=== PATIENT | male | born 1945 | race Caucasian/White ===

== ENCOUNTER → 2023-06-01 14:22 | Outpatient (REF) | payer MEDICARE, SELFPAY | LOC: RCS 14:22 | PROVIDERS: ATTENDING PHYSICIAN Internal Medicine Cardiovascular Disease; FAMILY PHYSICIAN Nurse Practitioner Family | DX: I35.0 Nonrheumatic aortic (valve) stenosis (principal) | CPT/HCPCS: 93306 ==

== ENCOUNTER 2023-08-02 16:55 | Inpatient (IN) | payer MEDICARE, SELFPAY ==
[2023-08-02 10:24] VITALS: BP 162/82
--- NOTE | 2023-08-02 10:30 | ED.GENMED ---
History of Present Illness
<Nikki Kyle PA-C - Last Filed: 08/02/23 17:52>
General
Chief Complaint: Skin Problem
Source: patient
Exam Limitations: none
Time Seen by Provider: 08/02/23 10:27
Nursing documentation reviewed up to this point in time: agreed with
Travel History
Have you had any contact with someone who has COVID-19?: No
Do you have any symptoms of coronavirus? Fever > 100 degrees, chills, cough, shortness of breath, sore throat, loss of taste or smell, muscle aches, or headache?: No
History of Present Illness
History of Present Illness:
Patient is a 78-year old male with history atrial fibrillation on Xarelto, COPD on 5 L O2 nasal cannula presenting to the emergency department for evaluation of left lower leg wound. Patient states that he has had a chronic wound on his left lower
leg that initially began in early June. He has been on multiple rounds of outpatient antibiotics without any improvement. Patient was admitted at [facility] for the past 2 days receiving IV antibiotics. He left AMA yesterday evening due to
'not being happy with his care there'. Patient reports some pain in his left lower leg but has been able to ambulate without difficulty. He denies any fevers, chills, nausea, vomiting, weakness, or fatigue. Patient denies any chest pain or
worsening in his shortness of breath from his baseline. Patient denies any numbness or tingling to his left lower extremity.
Patient is unsure how initial wound appeared. He denies any known injury or bites.
Past History
<Nikki Kyle PA-C - Last Filed: 08/02/23 17:52>
Past History
ED Past Medical History: COPD
ED Past Surgical History: Cardiac (Cardiac ablation x2)
Social History
Tobacco: Former smoker
Alcohol: None
Drug: None
Personal:
Living: with family
Employment: Retired
Family History
Family History: Other (Noncontributory)
Review of Systems
<Nikki Kyle PA-C - Last Filed: 08/02/23 17:52>
Review of Systems
Allergies reviewed?: Yes
All Other Systems: ROS reviewed and negative except as documented in HPI and ROS
Phy Exam
<Nikki Kyle PA-C - Last Filed: 08/02/23 17:52>
Physical Exam
Physical Exam:
Vitals: Hypertensive, otherwise vital signs stable. Afebrile
General: Patient is well appearing, no acute distress. Nontoxic-appearing
Skin: Erythema with overlying scale of left lower extremity extending from around left ankle to mid calf with overlying yellow/green crust. No red streaking noted. Pitting edema of left lower extremity. No active drainage. Venous stasis skin
changes to bilateral lower extremities.
Head: Normocephalic, atraumatic
Eyes: Sclera nonicteric. EOMs intact. No nystagmus.
Throat: Protecting airway
Neck: Normal ROM, no cervical spine tenderness, no meningismus
Cardiac: Regular rate and rhythm, no murmurs.
Pulm: Patient on 5 L nasal cannula. Bilateral wheezing.
Abdomen: Abdomen soft. No abdominal tenderness.
Extremities: Erythema and pitting edema of left lower extremity with skin changes as above. Palpable DP pulse in LLE. Sensation fully intact in LLE. Full range of motion in all joints of left lower extremity without any pain.
Neuro: AAOx3. CN II-XII intact. No focal neurologic deficits.
Psychiatric: Normal affect.
Course
<Nikki Kyle PA-C - Last Filed: 08/02/23 17:52>
Orders/Labs/Results
Orders:
Orders
08/02/23 11:01
CRP [C-Reactive Protein] Stat
Complete Blood Count/With Diff Urgent
Comprehensive Metabolic Panel Urgent
Erythrocyte Sed Rate Urgent
Comment: ADDED
Lactic Acid Q4H
Comment: CANCEL 2nd LACTIC ACID IF 1st LACTIC ACID IS LESS THAN 2
Blood Culture Q30M
JOSLYN Source: Blood/Venous
Specimen Description:
08/02/23 11:08
Blood Culture Q30M
JOSLYN Source: Blood/Venous
Specimen Description:
08/02/23 11:48
CR Leg Tibia/fibula Left 2 Vw Urgent
Comment:
Reason For Exam: cellulitis
08/02/23 13:11
Add On- LAB Urgent
Comments:: purple top in lab
Tests Added?: ESR
08/02/23 13:38
Vancomycin [Vancocin] 2,000 mg 0.9% Sodium Chloride 500 ml [Nss] 500 ml IV NOW
08/02/23 Dinner
Cholesterol Lowering
At Your Request: Full Participation
Does patient need a safe tray?: No
Cholesterol Lowering: Sodium, 2 Gram
08/02/23 16:36
Admit/Transfer Patient As Directed
Co-Sign Provider:
Level of Care: Inpatient admission
Assign to:: Telemetry
Physician / Group: Dr. Gilberto Cain/Hospitalists
Diagnosis: Cellulitis failed outpatient antibiotic therapy
Reason for Telemetry: Arrhythmia
Date to Stop Telemetry: 08/05/23
Time to Stop Telemetry: 11:00
Reason for Hospitalization: Cellulitis failed outpatient antibiotic therapy
Expected length of stay greater than two midnights?: Yes
ELOS- Estimated Length of Stay in days: 3
I certify the patient meets the requirements for IP care: Yes
08/02/23 16:39
Code Status As Directed
Resuscitation Status: Full Code
08/02/23 16:42
INFECTIOUS DISEASE CONSULT Routine
Consulting Provider: Terrence Chen
Was physician already notified: Yes
Reason for consult: LLE cellulitis diagnosed June 2023, failed 2 different courses of outpt Abx
08/02/23 16:43
SURGICAL CONSULT Routine
Consulting Provider: Som Sommers
Was physician already notified: Yes
Reason for consult: LLE cellulitis -- deep tissue infection? Needs surgery?
08/02/23 16:46
Cpap [RESP] Routine
Patient to use own unit?: No
Set Pressure (cm H2O): 15
08/02/23 16:48
Neurovascular Checks As Directed
Location: Bilateral Lower extremity
Frequency: q8h
Legs, Bilateral US [US Periph Venous LOWER Ext Johnson] Routine
Comment:
Reason For Exam: DVT?
08/02/23 16:49
Records Request [Obtain Records] As Directed
Dates of Information to be Released: July 2023
Type of Information Requested: Entire Record
Obtain Records from: [facility]
08/02/23 17:00
Flush (0.9% Sodium Chloride) [Flush (Nss)] See Dose Instructions IV PER PROTOCOL
08/02/23 17:59
Bisacodyl [Dulcolax] 10 mg RECTAL [id number] PRN
Docusate W/Senna [Senokot-S] 1 tablet PO BIDPRN PRN
Polyethylene Glycol Powder [Miralax] 17 grams PO DAILYPRN PRN
Roflumilast [Daliresp] 250 mcg PO DAILY
Sertraline HCl [Zoloft] 50 mg PO DAILY
08/02/23 17:59
Activity As Directed
Activity Level: As Tolerated
Intake/ Output As Directed
Frequency: q12h
Vital Signs As Directed
Frequency: Per unit guidelines
Weight As Directed
Frequency: Daily
08/02/23 18:00
Clindamycin 600 mg/50 ml [Cleocin] 600 mg in 50 ml IV Q8H
Piperacillin/Tazo 3.375 Gram [Zosyn] 3.375 gram in 50 ml IV Q6H
Rivaroxaban [Xarelto] 20 mg PO QPM
08/02/23 20:00
Diltiazem Extended Release [Cardizem Cd] 240 mg PO BID
HydrOXYZINE [Atarax] 25 mg PO BID
Mupirocin [Bactroban 2% Ointment] See Dose Instructions TOPICAL BID
08/03/23 05:06
Basic Metabolic Panel IN AM
Complete Blood Count/With Diff IN AM
Magnesium IN AM
08/03/23 08:00
Furosemide [Lasix] 40 mg PO DAILY
08/04/23 06:00
Basic Metabolic Panel IN AM
Complete Blood Count/With Diff IN AM
08/05/23 06:00
Basic Metabolic Panel IN AM
Complete Blood Count/With Diff IN AM
08/05/23 11:00
DC Protocol for Telemetry ONCE
08/06/23 06:00
Basic Metabolic Panel IN AM
Complete Blood Count/With Diff IN AM
08/07/23 06:00
Basic Metabolic Panel IN AM
Complete Blood Count/With Diff IN AM
08/08/23 06:00
Basic Metabolic Panel IN AM
Complete Blood Count/With Diff IN AM
08/09/23 06:00
Basic Metabolic Panel IN AM
Complete Blood Count/With Diff IN AM
08/10/23 06:00
Basic Metabolic Panel IN AM
Complete Blood Count/With Diff IN AM
08/11/23 06:00
Basic Metabolic Panel IN AM
Complete Blood Count/With Diff IN AM
08/12/23 06:00
Basic Metabolic Panel IN AM
Complete Blood Count/With Diff IN AM
Abnormal Lab Results
08/02/23
11:01
RBC 4.12 L 10^6/uL
(4.70-6.10)
Hgb 12.5 L g/dL
(13.0-18.0)
Hct 36.4 L %
(39.0-52.0)
RDW 14.8 H %
(11.5-14.5)
MPV 10.9 H fL
(7.4-10.4)
Absolute Monos (auto) 0.9 H 10^3/uL
(0.1-0.6)
Monocytes % 10.2 H %
(1.7-9.3)
Glucose 121 H mg/dl
(70-99)
AST 16 L U/L
(17-59)
C-Reactive Protein 18.30 H mg/L
(0.0-10.00)
08/02/23 11:01
08/02/23 11:01
Vital Signs
Initial and Last Documented VS:
Initial Vital Signs
Temp Pulse Resp BP Pulse Ox
98.4 F 95 18 162/82 95
08/02/23 10:24 08/02/23 10:24 08/02/23 10:24 08/02/23 10:24 08/02/23 10:24
Last Documented Vital Signs
Temp Pulse Resp BP Pulse Ox
98 F 73 16 103/65 93
08/03/23 15:00 08/03/23 15:00 08/03/23 15:00 08/03/23 15:00 08/03/23 15:00
<Terrence Lloyd, DO - Last Filed: 08/03/23 18:50>
Orders/Labs/Results
Orders:
Orders
08/02/23 11:01
CRP [C-Reactive Protein] Stat
Complete Blood Count/With Diff Urgent
Comprehensive Metabolic Panel Urgent
Erythrocyte Sed Rate Urgent
Comment: ADDED
Lactic Acid Q4H
Comment: CANCEL 2nd LACTIC ACID IF 1st LACTIC ACID IS LESS THAN 2
Blood Culture Q30M
JOSLYN Source: Blood/Venous
Specimen Description:
08/02/23 11:08
Blood Culture Q30M
JOSLYN Source: Blood/Venous
Specimen Description:
08/02/23 11:48
CR Leg Tibia/fibula Left 2 Vw Urgent
Comment:
Reason For Exam: cellulitis
08/02/23 13:11
Add On- LAB Urgent
Comments:: purple top in lab
Tests Added?: ESR
08/02/23 13:38
Vancomycin [Vancocin] 2,000 mg 0.9% Sodium Chloride 500 ml [Nss] 500 ml IV NOW
08/02/23 Dinner
Cholesterol Lowering
At Your Request: Full Participation
Does patient need a safe tray?: No
Cholesterol Lowering: Sodium, 2 Gram
08/02/23 16:36
Admit/Transfer Patient As Directed
Co-Sign Provider:
Level of Care: Inpatient admission
Assign to:: Telemetry
Physician / Group: Dr. Gilberto Cain/Hospitalists
Diagnosis: Cellulitis failed outpatient antibiotic therapy
Reason for Telemetry: Arrhythmia
Date to Stop Telemetry: 08/05/23
Time to Stop Telemetry: 11:00
Reason for Hospitalization: Cellulitis failed outpatient antibiotic therapy
Expected length of stay greater than two midnights?: Yes
ELOS- Estimated Length of Stay in days: 3
I certify the patient meets the requirements for IP care: Yes
08/02/23 16:39
Code Status As Directed
Resuscitation Status: Full Code
08/02/23 16:42
INFECTIOUS DISEASE CONSULT Routine
Consulting Provider: Terrence Chen
Was physician already notified: Yes
Reason for consult: LLE cellulitis diagnosed June 2023, failed 2 different courses of outpt Abx
08/02/23 16:43
SURGICAL CONSULT Routine
Consulting Provider: Som Sommers
Was physician already notified: Yes
Reason for consult: LLE cellulitis -- deep tissue infection? Needs surgery?
08/02/23 16:46
Cpap [RESP] Routine
Patient to use own unit?: No
Set Pressure (cm H2O): 15
08/02/23 16:48
Neurovascular Checks As Directed
Location: Bilateral Lower extremity
Frequency: q8h
Legs, Bilateral US [US Periph Venous LOWER Ext Johnson] Routine
Comment:
Reason For Exam: DVT?
08/02/23 16:49
Records Request [Obtain Records] As Directed
Dates of Information to be Released: July 2023
Type of Information Requested: Entire Record
Obtain Records from: [facility]
08/02/23 17:00
Flush (0.9% Sodium Chloride) [Flush (Nss)] See Dose Instructions IV PER PROTOCOL
08/02/23 17:59
Bisacodyl [Dulcolax] 10 mg RECTAL [id number] PRN
Docusate W/Senna [Senokot-S] 1 tablet PO BIDPRN PRN
Polyethylene Glycol Powder [Miralax] 17 grams PO DAILYPRN PRN
Roflumilast [Daliresp] 250 mcg PO DAILY
Sertraline HCl [Zoloft] 50 mg PO DAILY
08/02/23 17:59
Activity As Directed
Activity Level: As Tolerated
Intake/ Output As Directed
Frequency: q12h
Vital Signs As Directed
Frequency: Per unit guidelines
Weight As Directed
Frequency: Daily
08/02/23 18:00
Clindamycin 600 mg/50 ml [Cleocin] 600 mg in 50 ml IV Q8H
Piperacillin/Tazo 3.375 Gram [Zosyn] 3.375 gram in 50 ml IV Q6H
Rivaroxaban [Xarelto] 20 mg PO QPM
08/02/23 20:00
Diltiazem Extended Release [Cardizem Cd] 240 mg PO BID
HydrOXYZINE [Atarax] 25 mg PO BID
Mupirocin [Bactroban 2% Ointment] See Dose Instructions TOPICAL BID
08/03/23 05:06
Basic Metabolic Panel IN AM
Complete Blood Count/With Diff IN AM
Magnesium IN AM
08/03/23 08:00
Furosemide [Lasix] 40 mg PO DAILY
08/04/23 06:00
Basic Metabolic Panel IN AM
Complete Blood Count/With Diff IN AM
08/05/23 06:00
Basic Metabolic Panel IN AM
Complete Blood Count/With Diff IN AM
08/05/23 11:00
DC Protocol for Telemetry ONCE
08/06/23 06:00
Basic Metabolic Panel IN AM
Complete Blood Count/With Diff IN AM
08/07/23 06:00
Basic Metabolic Panel IN AM
Complete Blood Count/With Diff IN AM
08/08/23 06:00
Basic Metabolic Panel IN AM
Complete Blood Count/With Diff IN AM
08/09/23 06:00
Basic Metabolic Panel IN AM
Complete Blood Count/With Diff IN AM
08/10/23 06:00
Basic Metabolic Panel IN AM
Complete Blood Count/With Diff IN AM
08/11/23 06:00
Basic Metabolic Panel IN AM
Complete Blood Count/With Diff IN AM
08/12/23 06:00
Basic Metabolic Panel IN AM
Complete Blood Count/With Diff IN AM
Abnormal Lab Results
08/02/23
11:01
RBC 4.12 L 10^6/uL
(4.70-6.10)
Hgb 12.5 L g/dL
(13.0-18.0)
Hct 36.4 L %
(39.0-52.0)
RDW 14.8 H %
(11.5-14.5)
MPV 10.9 H fL
(7.4-10.4)
Absolute Monos (auto) 0.9 H 10^3/uL
(0.1-0.6)
Monocytes % 10.2 H %
(1.7-9.3)
Glucose 121 H mg/dl
(70-99)
AST 16 L U/L
(17-59)
C-Reactive Protein 18.30 H mg/L
(0.0-10.00)
08/02/23 11:01
08/02/23 11:01
Vital Signs
Initial and Last Documented VS:
Initial Vital Signs
Temp Pulse Resp BP Pulse Ox
98.4 F 95 18 162/82 95
08/02/23 10:24 08/02/23 10:24 08/02/23 10:24 08/02/23 10:24 08/02/23 10:24
Last Documented Vital Signs
Temp Pulse Resp BP Pulse Ox
98 F 73 16 103/65 93
08/03/23 15:00 08/03/23 15:00 08/03/23 15:00 08/03/23 15:00 08/03/23 15:00
<Nikki Kyle PA-C - Last Filed: 08/02/23 17:52>
MDM/Problems Addressed
Differential Diagnosis Includes:
Not limited to: Cellulitis, osteomyelitis, DVT, etc.
MDM/Problems Addressed:
78-year-old male presenting for evaluation of worsening and persistent wound on left lower extremity. Patient left AMA from [facility] yesterday after receiving IV antibiotics. Patient denies any systemic symptoms including fever, chills,
nausea, vomiting, weakness, fatigue. Patient does endorse pain in his left lower extremity and history of purulent drainage. This is status post multiple course of outpatient antibiotics. No history of diabetes. Patient's vital signs are stable.
He is afebrile. Exam as above. Patient is well-appearing, in no apparent distress. He does have wound on left lower daniels with surrounding erythema and warmth. No active drainage. Will check basic labs, lactic, blood cultures. Will check x-ray
of tibia/fibula to ensure no subcutaneous gas. Plan for likely admission for IV antibiotics. We were unable to obtain records from [facility].
Labs noted. No clinically significant abnormalities. CRP is mildly elevated to 18.3. X-ray without any acute changes. Will start patient on IV vancomycin and admit to hospitalist for continuation of IV antibiotics/further evaluation. He will
likely require evaluation for venous insufficiency and infectious disease. Discussed with patient. Discussed with hospitalist.
Chronic conditions affecting care:
Atrial fibrillation on Xarelto
Acute Exacerbation and/or Progression of Chronic Illness:
N/A
<Nikki Kyle PA-C - Last Filed: 08/02/23 17:52>
*Radiology
Radiology exam reviewed: preliminary read by ED provider and radiology read reviewed
*Pulse Oximetry
Patient hypoxic: yes (96 on 5 L nasal cannula which is baseline for)
*EKG
Interpreted by ED Provider?: NA
*Endoscopy Rn Interpretation
Rate: Endoscopy Rn- N/A
*Critical Care Note
Total Time (30-74mins, 75-104mins- exclusive of procedures): Not Applicable
<Nikki Kyle PA-C - Last Filed: 08/02/23 17:52>
Patient Management
Discussion with other providers: Hospitalist
Escalation/DeEscalation of care consider admission/obs:
Admit for IV antibiotic
ED Attending Note
<Nikki Kyle PA-C - Last Filed: 08/02/23 17:52>
-
Portions of this chart may have been created with voice recognition software.� Occasional wrong word or��sound alike� substitutions may have occurred due to the inherent limitations of voice recognition software.
<Terrence Lloyd, DO - Last Filed: 08/03/23 18:50>
ED Attending Note
Patient seen and examined by attending physician: Yes
I performed the substantive portion of visit, reviewed & personally made and approve the management plan that is documented in note by myself or ANDREE.: Yes
ED Attending Note:
I agree with Joan's note.
Pt presents with left lower leg swelling, redness, discharge. No fever. Pt states he was hospitalized at [facility] for this and signed out yesterday because 'he didn't like the care'.
Exam:
Left leg redness, warmth, yellowish discharge.
Admit for iv abx
Discharge Plan
Departure
Patient Disposition: Admit
Date of Disposition: 08/02/23
Time of Disposition: 13:04
Presentation/result/management discussed w/ accepting MD/DO: Hospitalist
Discharge Problem:
Cellulitis of left lower extremity
Interventions
Interventions:
*Risk Screen - Suicide Last Done: 08/02/23 18:18
*General Assessment Last Done: 08/02/23 11:16
*Neglect/Abuse Screening Last Done: 08/02/23 18:13
ED- Fall Risk Assessment Last Done: 08/02/23 18:13
*Nursing Disposition Last Done: 08/02/23 18:13
ED-Skin Assessment Last Done: 08/02/23 11:00
Discharge Date and Time
Discharge Date/Time: 08/02/23 18:14
[2023-08-02 11:15] LABS: % Basophils 0.6 % (0-2); % Immature Granulocytes 0.2 % (0-0.5); % Lymphocytes 27.1 % (20.5-51.1); % Monocytes 10.2 % (1.7-9.3); % Neutrophils 60.9 % (42.2-75.2); Absolute Basophils 0.1 10^3/uL (0-0.2); Absolute Eosinophils 0.1 10^3/uL (0-0.7); Absolute Lymphocytes 2.3 10^3/uL (1.2-3.4); Absolute Monocytes 0.9 10^3/uL (0.1-0.6); Absolute Neutrophils 5.2 10^3/uL (1.4-6.5); Hematocrit 36.4 % (39.0-52.0); Hemoglobin 12.5 g/dL (13.0-18.0); Mean Corp Hgb Conc. 34.3 g/dL (33.0-37.0); Mean Corpuscular Hgb 30.3 pg (27.0-31.0); Mean Corpuscular Volume 88.3 fL (80.0-94.0); Mean Platelet Volume 10.9 fL (7.4-10.4); Nucleated Red Blood Cells % 0 % (-); Platelet Count 166 10^3/uL (130-400); Red Blood Cell Count 4.12 10^6/uL (4.70-6.10); Red Cell Dist. Width 14.8 % (11.5-14.5); White Blood Cell Count 8.6 10^3/uL (4.8-10.8)
[2023-08-02 11:16] VITALS: BMI 35.2
[2023-08-02 11:32] LABS: Lactic Acid 1.4 mmol/L (0.7-2.0)
[2023-08-02 11:33] LABS: ALT (SGPT) 13 U/L (0-50); AST (SGOT) 16 U/L (17-59); Albumin 3.7 g/dl (3.5-5.0); Alkaline Phosphatase 84 U/L (38-126); Blood Urea Nitrogen 14 mg/dl (9-20); Calcium 8.7 mg/dl (8.4-10.2); Carbon Dioxide 25 mmol/L (22-30); Chloride 107 mmol/L (98-107); Estimated Creatinine Clearance 78 ml/min; Glucose 121 mg/dl (70-99); Sodium 140 mmol/L (135-145); Total Bilirubin 0.7 mg/dl (0.2-1.3); Total Protein 6.5 g/dl (6.3-8.2); eGFR > 60.00
[2023-08-02 13:42] VITALS: BP 146/73
[2023-08-02 14:13] LABS: Erythrocyte Sed Rate 19 mm/hour (0-20)
[2023-08-02] MEDS: VANCOCIN 540 MG IV (14:19)
--- NOTE | 2023-08-02 16:18 | HPS.HSE ---
Family Physician
-
Family Physician: Lara Olsen
Chief Complaint
-
Left Lower Extremity Worsening Cellulitis
History of Present Illness
78 y/o male with past medical history of atrial fibrillation on Xarelto, history of 2 ablations, COPD (on 5 L home oxygen nasal cannula only on exertion), congestive heart failure (sees Dr. Pyle cardiology outpatient), presented with left lower
leg skin infection and wound for the past 1.5 months. Patient received antibiotics starting on June 19, 2023, received oral antibiotics for 10 days but the infection did not improve, then later after a couple of weeks was started on another course of
oral antibiotics for 10 days but the infection did not improve, therefore was sent to the ER by his outpatient physician. Patient went to [facility] where he was started on IV antibiotics and was told he might need to have his leg
amputated, therefore he left the hospital against medical advice and came here for further evaluation. He denied fever, chest pain or any other symptoms except shooting pains in the area of the wound and infection. He is able to ambulate okay.
Medical History
Past Medical History
Past Medical History: Reports Other (As per HPI above)
Past Surgical History: Reports Cardiac (Cardiac ablation x2) and Orthopedic (Bilateral Knee Replacements)
Social History
Tobacco: Former Smoker
Alcohol: None
Drug: None
Family History
Family History: Not pertinent
Allergies / Home Medications
Allergies reflects when Allergies were last updated in [employer].
Home Medications with original date entered in [employer]
Allergy/Medication List:
Allergies
Allergy/AdvReac Type Severity Reaction Status Date / Time
No Known Allergies Allergy Verified 08/02/23 10:25
Home Medications
diltiazem HCl 240 mg capsule,extended release 24 hr 240 mg PO BID ##60 05/09/16
rivaroxaban 20 mg tablet (Xarelto) 20 mg PO QPM ##30 05/09/16
hydroxyzine HCl 25 mg tablet 25 mg PO BID 02/07/18
roflumilast 500 mcg tablet (Daliresp) 250 mcg PO DAILY 09/25/18
sertraline 25 mg tablet 50 mg PO DAILY 09/25/18
clindamycin HCl 300 mg capsule 300 mg PO TID 08/02/23
fluticasone fur. 100 mcg-umeclid 62.5 mcg-vilant 25 mcg inhalat.powder (Trelegy Ellipta) 1 inh inhalation R DAILY 08/02/23
furosemide 40 mg tablet (Lasix) 40 mg PO DAILY 08/02/23
mupirocin 2 % topical ointment 1 applic topical BID left leg 08/02/23
Review of Systems
-
A 12 point ROS was completed and negative except as noted: Yes
Physical Exam
Vital Signs
Vital Signs
Temp Pulse Resp BP Pulse Ox
98.4 F 76 16 146/73 96
08/02/23 10:24 08/02/23 13:42 08/02/23 13:42 08/02/23 13:42 08/02/23 13:42
Physical Exam
General: No Apparent Distress and Comfortable
HEENT: NormoCephalic and Moist mucous membranes
Respiratory: Clear
Cardiac: S1/S2 and Regular Rhythm
GI: Soft, Non Tender and Normal Bowel Sounds
Musculoskeletal: No Cyanosis and Other (LLE with venous stasis pigmentation with wound on the daniels, tender to palpation, no active drainage)
Skin: Warm
Neuro: Awake, Alert and AO x 3
Psych: Calm and Intact Judgment/Insight
Laboratory Results
-
08/02/23 11:01
08/02/23 11:01
Laboratory Results
Lactic Acid 1.4 mmol/L (0.7-2.0) 08/02/23 11:01
Total Bilirubin 0.7 mg/dl (0.2-1.3) 08/02/23 11:01
AST 16 U/L (17-59) L 08/02/23 11:01
ALT 13 U/L (0-50) 08/02/23 11:01
Alkaline Phosphatase 84 U/L (38-126) 08/02/23 11:01
Impression/Plan
-
Assessment/Plan
LLE wound, concern for cellulitis with history of purulent drainage
Venous stasis disease of the LLE
-Ordered Vancomycin, Zosyn and Clindamycin to cover for any possible deep tissue infection
-ID consulted, recommendations appreciated
-General surgery consulted, recommendations appreciated: affected area appears to be venous stasis disease, needs vascular surgery, no surgery needed at this time, they will order CRISTAL and venous US of that leg
-Follow-up CRISTAL and Leg Ultrasound results
-Follow MRSA and blood cultures
Paroxysmal Atrial fibrillation on Xarelto, with history of 2 ablations
Congestive heart failure (sees Dr. Pyle cardiology outpatient)
Cardiomyopathy
-Monitor on telemetry
-Continue Xarelto
-Contiue home Lasix
-Daily weights, I's and O's
COPD (on 5 L home oxygen nasal cannula only on exertion)
-Continue home Trelegy Ellipta
-Continue Daliresp
DVT Prophylaxis: Lovenox
Code Status: Full Code
--- NOTE | 2023-08-02 17:19 | EDRN ---
Pt in ultrasound; report tubed 417-2.
--- NOTE | 2023-08-02 17:47 | CON.GS ---
Consultation
-
Requesting Provider: Gilberto
Performing Provider: Matthieu
Reason for Consultation: LLE wound and infection
Medical History
-
Chief Complaint: LLE wound and infection
History of Present Illness:
Pt with 6 week hx of LLE swelling, tenderness and redness. Was at OSH but left AMA when reportedly told he would need amputation. He has failed multiple courses of outpt PO abx. He denies f/c/n/v. He takes xarelto for afib.
Past Medical History
Past Medical History: Arrhythmias (afib), CHF and COPD (home O2 5L)
Past Surgical History: Orthopedic (B/L TKA)
Social History
Tobacco: Former Smoker
Alcohol: None
Drug: None
Family History
Family History: Reviewed & Noncontributory
Allergies / Home Medications
Allergy/AdvReac Type Severity Reaction Status Date / Time
No Known Allergies Allergy Verified 08/02/23 10:25
�Medication �Instructions �Recorded �Confirmed �Type
diltiazem HCl 240 mg 240 mg PO BID ##60 05/09/16 08/02/23 Rx
capsule,extended release 24 hr
rivaroxaban 20 mg tablet (Xarelto) 20 mg PO QPM ##30 05/09/16 08/02/23 Rx
hydroxyzine HCl 25 mg tablet 25 mg PO BID 02/07/18 08/02/23 History
roflumilast 500 mcg tablet 250 mcg PO DAILY 09/25/18 08/02/23 History
(Daliresp)
sertraline 25 mg tablet 50 mg PO DAILY 09/25/18 08/02/23 History
clindamycin HCl 300 mg capsule 300 mg PO TID 08/02/23 08/02/23 History
fluticasone fur. 100 mcg-umeclid 1 inh inhalation R DAILY 08/02/23 08/02/23 History
62.5 mcg-vilant 25 mcg
inhalat.powder (Trelegy Ellipta)
furosemide 40 mg tablet (Lasix) 40 mg PO DAILY 08/02/23 08/02/23 History
mupirocin 2 % topical ointment 1 applic topical BID left leg 08/02/23 08/02/23 History
Review of Systems
-
A 10 point review of systems was completed, and was negative except as per HPI.
Physical Exam
Vital Signs
Temp Pulse Resp BP Pulse Ox
98.4 F 76 16 146/73 96
08/02/23 10:24 08/02/23 13:42 08/02/23 13:42 08/02/23 13:42 08/02/23 13:42
08/01/23 08/02/23 08/03/23
06:59 06:59 06:59
Actual Weight 105 kg
Body Mass Index (BMI) 35.2
Lab Results
08/02/23 11:01
08/02/23 11:01
WBC 8.6 10^3/uL (4.8-10.8) 08/02/23 11:01
Hgb 12.5 g/dL (13.0-18.0) L 08/02/23 11:01
Hct 36.4 % (39.0-52.0) L 08/02/23 11:01
Plt Count 166 10^3/uL (130-400) 08/02/23 11:01
Abs Immat Gran (auto) 0.0 10^3/uL (0-0.05) 08/02/23 11:01
Neutrophils % 60.9 % (42.2-75.2) 08/02/23 11:01
Physical Exam
General: No Apparent Distress
HEENT: Normocephalic and Anicteric
GI: Soft and Non Tender
Skin: Other (BLE with hemosiderin deposits, LLE with limiter tissue loss at anterior tibial region, difficult to palpate distal pulses)
Neuro: AO x 3
Psych: Calm
Data Reviewed
-
Radiology: Image Personally Visualized and interpreted, Report Reviewed by me and Discussed with Physician
Labs: Labs Reviewed by me
Assessment / Plan
-
78M with suspected venous stasis ulcer vs arterial insufficiency at LLE
There is no role for GS here.
Will order NIFS to evaluate inflow/outflow of LLE
Agree with ID consult / IV abx
Recommend routine consult to Vascular Surgery pending the above studies.
Pls call with ?s
[2023-08-02 18:06] VITALS: BMI 35.0
[2023-08-02 18:36] VITALS: BMI 35.0
[2023-08-02] MEDS: ZOSYN 50 IV (18:38)
[2023-08-02] MEDS: ZOLOFT 50 MG PO (18:39)
[2023-08-02] MEDS: XARELTO 20 MG PO (18:39)
[2023-08-02 19:08] VITALS: BP 151/74
--- NOTE | 2023-08-02 19:11 | PHA.VAN.IN ---
Assessment
- Assessment
Renal Function: Appears similar to baseline
Renal Function may be Overestimated due to: obesity
Concomitant Antimicrobials: clindamycin and pip/tazo
AUC Dosing Plan
- Dosing Variables
Dosing Weight (kg): 105
Dosing CrCl (ml/min): 78
Vd coefficient (L/kg): 0.6
- Empiric Dosing
Initial / Loading Dose: 2000 mg LD - 08/01 ~1420
Maintenance Regimen: 1000 mg q12h - first dose 08/02
Estimated AUC (mcg*h/mL): 475
Estimated Peak (mcg*h/mL): 28.2
Estimated Trough (mcg/ml): 13.2
Estimated Half Life (H): 10
- Monitoring
No levels ordered at this time: consider levels after pt nears steady state
Pharmacokinetics Vancomycin I
- -
Patient Age: 78
Patient Sex: Male
Vancomycin Day #: 1
Indication: Skin And Soft Tissue
Requesting Provider: CHoudary
Height / Weight:
Height 5 ft 8 in
Actual Weight 104.496 kg
Adjusted BW in kg: BMI ~35
- Vital Signs / Lab Results
Temp Pulse Resp BP Pulse Ox
99.5 F 77 24 151/74 97
08/02/23 19:08 08/02/23 19:08 08/02/23 19:08 08/02/23 19:08 08/02/23 19:08
Lab Results - Hematology
08/02/23
11:01
WBC 8.6
Lab Results - Chemistry
08/02/23
11:01
BUN 14
Creatinine 0.9
Estimated Creat Clear 78
Albumin 3.7
08/02/23 08/02/23
11:01 15:00
Lactic Acid 1.4 Cancelled
[2023-08-02 19:36] VITALS: BP 139/78
[2023-08-02] MEDS: SYMBICORT 80/4.5 MCG INHALER INH (20:06)
[2023-08-02] MEDS: DALIRESP PO ×2 (20:38→20:46)
[2023-08-02] MEDS: ATARAX 25 MG PO (20:39)
[2023-08-02] MEDS: CARDIZEM CD 240 MG PO (20:39)
[2023-08-02] MEDS: BACTROBAN 2% OINTMENT 1 APPLIC TOPICAL (20:40)
[2023-08-02] MEDS: CLEOCIN 50 IV (20:41)
[2023-08-02 22:56] VITALS: BP 141/67
[2023-08-03] VITALS (9 sets, daily range): BP systolic 103–154; BP diastolic 60–75; PULSE 64–69
[2023-08-03] MEDS: ZOSYN 50 IV ×2 (00:08→05:21)
[2023-08-03] MEDS: CLEOCIN 50 IV ×2 (03:16→11:33)
[2023-08-03 06:06] LABS: % Basophils 0.5 % (0-2); % Eosinophils 2.4 % (0-6); % Immature Granulocytes 0.2 % (0-0.5); % Lymphocytes 38.3 % (20.5-51.1); % Monocytes 12.9 % (1.7-9.3); % Neutrophils 45.7 % (42.2-75.2); Absolute Eosinophils 0.2 10^3/uL (0-0.7); Absolute Lymphocytes 3.3 10^3/uL (1.2-3.4); Absolute Monocytes 1.1 10^3/uL (0.1-0.6); Hematocrit 38.2 % (39.0-52.0); Hemoglobin 12.2 g/dL (13.0-18.0); Mean Corp Hgb Conc. 31.9 g/dL (33.0-37.0); Mean Corpuscular Hgb 29.8 pg (27.0-31.0); Mean Corpuscular Volume 93.2 fL (80.0-94.0); Mean Platelet Volume 11.1 fL (7.4-10.4); Nucleated Red Blood Cells % 0 % (-); Platelet Count 148 10^3/uL (130-400); Red Cell Dist. Width 14.7 % (11.5-14.5); White Blood Cell Count 8.7 10^3/uL (4.8-10.8)
[2023-08-03] MEDS: VANCOCIN 200 IV (06:16)
[2023-08-03 06:34] LABS: Blood Urea Nitrogen 16 mg/dl (9-20); Calcium 8.6 mg/dl (8.4-10.2); Carbon Dioxide 28 mmol/L (22-30); Chloride 107 mmol/L (98-107); Estimated Creatinine Clearance 64 ml/min; Glucose 95 mg/dl (70-99); Magnesium 2.2 mg/dl (1.6-2.3); Sodium 143 mmol/L (135-145); eGFR > 60.00
[2023-08-03] MEDS: SYMBICORT 80/4.5 MCG INHALER 2 PUFF INH ×2 (09:40→20:04)
[2023-08-03] MEDS: SPIRIVA RESPIMAT 2.5 MCG 2 PUFF INH (09:40)
[2023-08-03] MEDS: BACTROBAN 2% OINTMENT 1 APPLIC TOPICAL (09:42)
[2023-08-03] MEDS: DALIRESP 250 MCG PO (09:43)
[2023-08-03] MEDS: LASIX 40 MG PO (09:44)
[2023-08-03] MEDS: CARDIZEM CD 240 MG PO ×2 (09:44→20:35)
[2023-08-03] MEDS: ATARAX 25 MG PO ×2 (09:45→20:35)
[2023-08-03] MEDS: ZOLOFT 50 MG PO (09:45)
--- NOTE | 2023-08-03 11:30 | RR ---
While both aids were changing the pt, they came and got me and stated that the pt had a blank stare at then and was displaying increased signs of weakness in his left arm.
Upon examining the pt, it was noted that he had a weakness in his left arm as well as left arm ataxia. He also has slight weakness in his left foot and leg. pt also had slight left sided facial droop and slurred speech.
A rapid response and stoke alert was called.
A Rapid Response was called on this patient, please see Rapid Response form.
--- NOTE | 2023-08-03 11:55 | CM ---
Patient seen bedside, initial assessment completed. Patient resides with his in a multiple story home, three steps to enter. Patient denies VN or SNF, has a CPAP at home, unsure provider. Patient confirms PCP Lara Olsen, [facility], confirms prescription coverage. Patient denies food insecurities at home. CM will continue to follow for discharge planning needs.
Plan; home no need anticipated.
--- NOTE | 2023-08-03 11:56 | PTCARENOTE ---
pt continues to have loose bloody stools. pt had threes loose stools since 7am. MD aware of pts condition and stools
--- NOTE | 2023-08-03 13:14 | CON.ID ---
Consultation
-
Date/Time Consultation Requested: 08/02/2023 1642
Date/Time Consultation Performed: 08/03/2023 1228
Requesting Provider: Dr. Cain
Performing Provider: Dr. Chen
Reason for Consultation: Right lower extremity cellulitis
Chief Complaint / Past History
History of Present Illness
Shawn Syed is a 78-year-old male being evaluated at the request of Dr. Cain regarding left lower extremity cellulitis. History was obtained from chart review, patient interview.
The patient reports that in early June he developed a scab on the anterior portion of his mid calf area. He reports that he saw his PCP within the next 2 days and he was placed on a 10-day course of antibiotics. The area appeared to improve, but
erythema returned approximately 1 month later and over this period of time he reports intermittent 'oozing 'from the scab area. He he was seen by a different provider, and again placed on antibiotics, but it follow-up several days later it did not
appear improved and he was advised to go to the hospital. He reports being admitted to [facility] for approximately 2 days, but left AMA because he needed to get home. Thereafter, he came to [facility] for further care and
evaluation. Here he has been admitted and placed on broad-spectrum antibiotics and Infectious Diseases is asked to comment on further antimicrobial therapy.
At present, patient reports ongoing discomfort even with light touch to the lower extremity. He denies any inguinal swelling or pain. He denies any fevers or chills. No history of trauma.
Past History
Additional Past Medical History:
Emphysema/COPD
Hx A-fib
HTN
Additional Past Surgical History:
Cardiac ablation
Allergy History:
No Known Allergies Allergy (Verified 08/02/23 10:25)
Medications Reviewed: Yes
Current Antibiotics:
Vancomycin
Zosyn
Clindamycin
Social History
Tobacco: Former Smoker
Alcohol: None
Drug: None
Personal:
Living: With Family
Employment: Retired
Family History
Family History: Not Pertinent
Review of Systems
Vital Signs
Temp Pulse Resp BP Pulse Ox
98 F 73 16 145/73 92
08/03/23 11:00 08/03/23 11:00 08/03/23 11:00 08/03/23 11:00 08/03/23 11:00
Physical Exam
Physical Exam
Constitutional: No Acute Distress, Comfortable, Chronically Ill and Non-toxic
Head: Normocephalic
Eyes: Pupils Equal, Pupils Round, No Conjunctival Hemorrhage and Sclera Anicteric
Oral: No Thrush and No Ulcers
Cardiovascular: Regular Rate and S1/S2; Negative S3/S4
Pulmonary: Clear and Non Labored; Negative Wheezes, Rales or Rhonchi
Gastrointestinal: Soft, Non Tender, Non Distended and Normal Bowel Sounds
Genito-Urinary: Negative [place]
Extremities: Edema (B/L LE's), Erythema (LLE), Pulses and Venous Insufficiency (B/L LE's; L>>R)
Skin: Warm and Dry; Negative Rash or Jaundice
Neurological: Awake and AO x 3
Psychological: Calm
Lab / Diagnostic Study Results
08/03/23 05:06
08/03/23 05:06
Abs Immat Gran (auto) 0.0 10^3/uL (0-0.05) 08/03/23 05:06
Absolute Neuts (auto) 4.0 10^3/uL (1.4-6.5) 08/03/23 05:06
Absolute Lymphs (auto) 3.3 10^3/uL (1.2-3.4) 08/03/23 05:06
Absolute Monos (auto) 1.1 10^3/uL (0.1-0.6) H 08/03/23 05:06
Absolute Basos (auto) 0.0 10^3/uL (0-0.2) 08/03/23 05:06
Immature Gran % 0.2 % (0-0.5) 08/03/23 05:06
Neutrophils % 45.7 % (42.2-75.2) 08/03/23 05:06
Lymphocytes % 38.3 % (20.5-51.1) 08/03/23 05:06
Monocytes % 12.9 % (1.7-9.3) H 08/03/23 05:06
Eosinophils % 2.4 % (0-6) 08/03/23 05:06
Basophils % 0.5 % (0-2) 08/03/23 05:06
ESR 19 mm/hour (0-20) 08/02/23 11:01
ESR Cancelled 08/02/23 11:01
Lactic Acid Cancelled 08/02/23 15:00
C-Reactive Protein 18.30 mg/L (0.0-10.00) H 08/02/23 11:01
Microbiology Results
Micro:
08/02/23 11:08 Blood Culture - Preliminary
Blood/Venous No Growth in 24 hours- Final report to follow
08/02/23 11:01 Blood Culture - Preliminary
Blood/Venous No Growth in 24 hours- Final report to follow
08/02/23 19:21 MRSA Screen - Pending
Nose
Assessment / Plan
Bilateral lower extremity venous insufficiency
Left anterior leg wound with serous drainage
Lower extremity erythroderma
- doubt significant cellulitis, although there may be a component
Emphysema/COPD
Hx A-fib
HTN
Recommendations:
Discontinue further vancomycin, Zosyn and clindamycin.
Consolidate to cefazolin 2 g IV every 8 hours.
Lower extremity compressive therapy in the form of Len wrap to the left leg. Would place Tubigrip on the right leg.
Await further vascular workup.
--- NOTE | 2023-08-03 14:14 | W.PN.HOSP.TC ---
Today's Communication/Plan
-
Appreciate ID -- Abx changed to Cefazolin. Appreciate surgery consult.
Await CRISTAL results
Assessment / Plan
Assessment / Plan
Physical Exam
General: No Apparent Distress and Comfortable
HEENT: Normocephalic and Moist mucous membranes
Respiratory: Clear
Cardiac: S1/S2 and Regular Rhythm
GI: Soft, Non Tender and Normal Bowel Sounds
Musculoskeletal: No Cyanosis and Other (LLE with venous stasis pigmentation with wound on the daniels, tender to palpation, no active drainage)
Skin: Warm
Neuro: Awake, Alert and Oriented x 3
Psych: Calm and Intact Judgment/Insight
Assessment/Plan
LLE wound, concern for cellulitis with history of purulent drainage
Venous stasis disease of the LLE
-Vancomycin, Zosyn and Clindamycin stopped as per ID
-Continue Cefazolin
-ID consulted, recommendations appreciated
-General surgery consulted, recommendations appreciated: affected area appears to be venous stasis disease, needs vascular surgery, no surgery needed at this time, they will order CRISTAL and venous US of that leg
-Results of lower extremity ultrasound
-Follow-up CRISTAL results
-Follow MRSA and blood cultures
Paroxysmal Atrial fibrillation on Xarelto, with history of 2 ablations
Congestive heart failure (sees Dr. Pyle cardiology outpatient)
Cardiomyopathy
-Monitor on telemetry
-Continue Xarelto
-Continue home Lasix
-Daily weights, I's and O's
Left inguinal lymphadenopathy with a 3 cm enlarged left inguinal lymph node
-Seen on lower extremity duplex ultrasound
-Will consider oncology consultation
COPD (on 5 L home oxygen nasal cannula only on exertion)
-Continue home Trelegy Ellipta
-Continue Daliresp
DVT Prophylaxis: Lovenox
Code Status: Full Code
Anticipated Discharge: > 48 hours
Subjective/Interval History
-
Date of Service: August 03, 2023
Patient was seen and examined. He denied any new symptoms or complaints.
Objective Data
-
Labs:
Laboratory Results
08/03/23
05:06
WBC 8.7
Hgb 12.2 L
Hct 38.2 L
Plt Count 148
Sodium 143
Potassium 5.0
Chloride 107
Carbon Dioxide 28
BUN 16
Creatinine 1.1
Glucose 95
Calcium 8.6
Vital Signs:
Vital Signs
Temp Pulse Resp BP Pulse Ox
98 F 73 16 145/73 92
08/03/23 11:00 08/03/23 11:00 08/03/23 11:00 08/03/23 11:00 08/03/23 11:00
[2023-08-03] MEDS: ANCEF 10 IV ×2 (14:57→21:38)
[2023-08-03] MEDS: XARELTO 20 MG PO (17:24)
[2023-08-03] MEDS: BACTROBAN 2% OINTMENT TOPICAL ×2 (20:35→21:47)
[2023-08-04] VITALS (7 sets, daily range): BP systolic 107–143; BP diastolic 53–99; PULSE 62; BMI 35.3
[2023-08-04] MEDS: ANCEF 10 IV ×3 (05:30→22:21)
[2023-08-04 06:48] LABS: % Basophils 0.6 % (0-2); % Eosinophils 3.6 % (0-6); % Immature Granulocytes 0.3 % (0-0.5); % Lymphocytes 37.4 % (20.5-51.1); % Monocytes 11.4 % (1.7-9.3); % Neutrophils 46.7 % (42.2-75.2); Absolute Basophils 0.1 10^3/uL (0-0.2); Absolute Eosinophils 0.3 10^3/uL (0-0.7); Absolute Lymphocytes 2.9 10^3/uL (1.2-3.4); Absolute Monocytes 0.9 10^3/uL (0.1-0.6); Absolute Neutrophils 3.6 10^3/uL (1.4-6.5); Hematocrit 36.3 % (39.0-52.0); Hemoglobin 12.4 g/dL (13.0-18.0); Mean Corp Hgb Conc. 34.2 g/dL (33.0-37.0); Mean Corpuscular Hgb 30.3 pg (27.0-31.0); Mean Corpuscular Volume 88.8 fL (80.0-94.0); Mean Platelet Volume 10.5 fL (7.4-10.4); Nucleated Red Blood Cells % 0 % (-); Platelet Count 152 10^3/uL (130-400); Red Blood Cell Count 4.09 10^6/uL (4.70-6.10); White Blood Cell Count 7.8 10^3/uL (4.8-10.8)
[2023-08-04 07:23] LABS: Blood Urea Nitrogen 14 mg/dl (9-20); Calcium 8.9 mg/dl (8.4-10.2); Carbon Dioxide 24 mmol/L (22-30); Chloride 105 mmol/L (98-107); Estimated Creatinine Clearance 78 ml/min; Glucose 100 mg/dl (70-99); Potassium 4.2 mmol/L (3.5-5.1); Sodium 138 mmol/L (135-145); eGFR > 60.00
[2023-08-04] MEDS: DALIRESP 250 MCG PO (08:21)
[2023-08-04] MEDS: ZOLOFT 50 MG PO (08:21)
[2023-08-04] MEDS: LASIX 40 MG PO (08:21)
[2023-08-04] MEDS: CARDIZEM CD 240 MG PO ×2 (08:22→20:32)
[2023-08-04] MEDS: ATARAX 25 MG PO ×2 (08:22→20:32)
[2023-08-04] MEDS: BACTROBAN 2% OINTMENT 1 APPLIC TOPICAL (08:22)
[2023-08-04] MEDS: SPIRIVA RESPIMAT 2.5 MCG 2 PUFF INH (08:33)
[2023-08-04] MEDS: SYMBICORT 80/4.5 MCG INHALER 2 PUFF INH ×2 (08:33→19:43)
--- NOTE | 2023-08-04 10:13 | PN.CDI ---
CDI
- -
CDI:
Physician Documentation Request
Admit Date: 08/02/23 16:55
Dear Doctor Ant,
Please review the following and provide your response in the progress notes.
Clinical Indicators:
Pt admitted with left lower leg cellulitis
H&P states past medical history of 'congestive heart failure'
06/01/23 Echocardiogram: Mild concentric left ventricular hypertrophy.
Hyperdynamic left ventricular systolic function.
Estimated ejection fraction is 65-70% by visual assessment.
Stage III diastolic dysfunction suggestive of restrictive filling pattern and
increased filling pressures.
Please provide further specificity regarding the most likely type and acuity of CHF you are evaluating, treating or monitoring.
Type Acuity
Systolic Acute
Diastolic Chronic
Combined Systolic/Diastolic Acute on Chronic
Other Other
Use of terms such as suspected, likely, concern for, or probable (associated with a specific diagnosis that is being evaluated, monitored, or treated as if it exists) are acceptable and can be coded in the inpatient setting, when documented at the
time of discharge.
Thank you,
Callie Vega RN, BSN
CDI Specialist
Available via [place] [employer]
Please use your independent medical judgment in providing your response.
--- NOTE | 2023-08-04 10:24 | PN.CDI ---
CDI
- -
CDI:
Physician Documentation Request
Admit Date: 08/02/23 16:55
Dear Doctor Ant,
Please review the following and provide your response in the progress notes.
Clinical Indicators:
Pt. admitted with left lower leg cellulitis
08/01 ER: Reason for Hospitalization: Cellulitis failed outpatient antibiotic therapy...Reason for consult: LLE cellulitis diagnosed June 2023, failed 2 different courses of outpt Abx.'
08/01 H&P: '...presented with left lower leg skin infection and wound for the past 1.5 months. Patient received antibiotics starting on June 19, 2023, received oral antibiotics for 10 days but the infection did not improve, then later after a couple of
weeks was started on another course of oral antibiotics for 10 days but the infection did not improve, therefore was sent to the ER by his outpatient physician. Patient went to [facility] where he was started on IV antibiotics..'
Based on the above and your assessment, could you please clarify in the progress notes if you suspect whether the cellulitis is resistant to antibiotics or not, and additional evaluation, monitoring and/or treatment rendered:
cellulitis is antibiotic resistant (please state which antibiotics if known)
cellulitis is not antibiotic resistant
Other
Unable to determine
Use of terms such as suspected, likely, concern for, or probable (associated with a specific diagnosis that is being evaluated, monitored, or treated as if it exists) are acceptable and can be coded in the inpatient setting, when documented at the
time of discharge.
Thank you,
Callie Vega RN, BSN
CDI Specialist
[place] [employer]
Please use your independent medical judgment in providing your response.
--- NOTE | 2023-08-04 13:25 | W.PN.ID1 ---
Date of Service
Date of Service: August 04, 2023
Today's Communication
Tomorrow, can transition cefazolin 2 g IV every 8 hours to cephalexin 1000mg po q8h through 08/09/23.
Call if any questions.
Assessment / Plan
Bilateral lower extremity venous insufficiency
Left anterior leg wound with serous drainage
Lower extremity erythroderma
- doubt significant cellulitis, although there may be a component
Emphysema/COPD
Hx A-fib
HTN
Recommendations:
Tomorrow, can transition cefazolin 2 g IV every 8 hours to cephalexin 1000mg po q8h through 08/09/23
Lower extremity compressive therapy in the form of Len wrap to the left leg. Place Tubigrip on the right leg.
Chief Complaint
-: Cellulitis
Subjective / Review of Systems
He reports leg has 'calmed down' and better.
Vital Signs / Physical Exam
Vital Signs
Vital Signs
Temp Pulse Resp BP Pulse Ox
97.9 F 66 16 107/84 94
08/04/23 11:46 08/04/23 11:46 08/04/23 11:46 08/04/23 11:46 08/04/23 11:46
Physical Exam
Constitutional: No Acute Distress and Obese
Cardiovascular: Regular Rate and S1/S2
Pulmonary: Clear
Genito-Urinary: Negative CVA Tenderness
Extremities: Edema (LLE>RLE), Erythema (LLE: dark erythema, slightly warm, dried serous drainage) and Venous Insufficiency (BLE)
Neurological: AO x 3
Objective Data
Lab Data
Lab Results
08/04/23 06:33
08/04/23 06:33
ESR 19 mm/hour (0-20) 08/02/23 11:01
ESR Cancelled 08/02/23 11:01
Estimated Creat Clear 78 ml/min 08/04/23 06:33
Lactic Acid Cancelled 08/02/23 15:00
Total Bilirubin 0.7 mg/dl (0.2-1.3) 08/02/23 11:01
AST 16 U/L (17-59) L 08/02/23 11:01
ALT 13 U/L (0-50) 08/02/23 11:01
Alkaline Phosphatase 84 U/L (38-126) 08/02/23 11:01
C-Reactive Protein 18.30 mg/L (0.0-10.00) H 08/02/23 11:01
Most recent labs reviewed.
Micro Results:
08/02/23 11:08 Blood Culture - Preliminary
Blood/Venous No Growth in 48 hours- Final report to follow
08/02/23 11:01 Blood Culture - Preliminary
Blood/Venous No Growth in 48 hours- Final report to follow
08/02/23 19:21 MRSA Screen - Final
Nose No Methicillin Resistant Staphylococcus aureus isolated.
Care Review
Plan reviewed with: Physician (Dr. Cain)
--- NOTE | 2023-08-04 15:11 | WOUNDNOTE ---
[facility] RN Note: Reviewed chart and met with patient. Spoke to RNChuyita who provided wound care with Bactroban earlier today. Dressing is clean, dry and intact. Compression with tubi-a/c technician also ordered. Contacted Dr. Stevenson and plan is for this
RN to update wound and discharge orders. Patient given instruction on wound care and will preform at home independently. Patient give supplies and Vashe bell cleaner to take home. All questions answered. Per patient, plan is for discharge tomorrow. Will
follow as needed.
--- NOTE | 2023-08-04 15:26 | CON.VAS ---
Addendum entered and electronically signed by Ronnie Florence III, MD 08/04/23 17:18:
This patient was seen and examined with DEWAYNE Callahan. I agree with the history and physical exam as well as the assessment and plan. I have the following additions:
Superficial daniels wounds of the anterior left lower extremity in the setting of lower extremity edema and chronic skin changes consistent with chronic venous disease/venous insufficiency.
No history of DVT
Recently treated for lower extremity cellulitis.
I personally reviewed his lower extremity arterial studies. On the left his CRISTAL is only minimally reduced at 0.93. His TBI is normal at 0.80. No significant velocity elevations are identified between the common femoral artery and popliteal artery
to suggest significant stenosis. He does have a mid superficial femoral artery stenosis on the contralateral side (right).
His current LEFT LEG wounds are likely related to his chronic lower extremity edema which is likely related to chronic venous insufficiency and/or lymphedema. My recommendation is for aggressive compression therapy at all times during the day. Leg
elevation while at rest. Local wound care.
I will plan to see him back in the office in several weeks with a bilateral lower extremity venous insufficiency duplex. I will continue to monitor his arterial disease in the RIGHT lower extremity. He should continue aggressive medical management
of his arterial disease risk factors.
Signed:
Ronnie Florence III, MD
[facility]
[phone] (rjbr)
Original Note:
Consultation
Consultation Request
Date/Time Consultation Performed: 08/04/2023 1300
Requesting Provider: Hospitalist
Performing Provider: Nubia Mcqueen NP-C for Ronnie Florence III, MD
Reason for Consultation: Left lower extremity cellulitis
Medical History
-
Chief Complaint: Left lower extremity cellulitis
History of Present Illness:
Is a 6-year-old male significant past medical history for atrial fibrillation (on Xarelto), CHF, and COPD (on home oxygen via nasal cannula) who presented to the ER on 08/02/2023 for ongoing and chronic left lower extremity skin infection over the
past roughly 1 to 2 months. Patient endorses that has been receiving antibiotics on and off since roughly early June with no improvement in left lower extremity anterior and posterior calf skin changes. He was recently hospitalized at [facility] where he was initiated on IV antibiotics, he signed himself out AMA as he felt the care he was receiving there was not optimal. He denies fever, chest pain, chills, nausea, and vomiting. Denies purulent or foul-smelling odor from
left lower extremity. Denies prior history of vascular intervention or seeing a vascular surgeon. Denies claudication or rest pain. He does endorse pain to the left lower extremity calf area where cellulitis is present with palpation.
Past Medical History
Past Medical History: Arrhythmias (Atrial fibrillation), CHF and COPD (On home oxygen via nasal cannula 5 L)
Past Surgical History: Cardiac (Cardiac ablation x2) and Orthopedic (Bilateral knee replacement)
Social History
Tobacco: Former Smoker
Alcohol: None
Drug: None
Personal:
Living: With Family
Allergies / Home Medications
Allergy/AdvReac Type Severity Reaction Status Date / Time
No Known Allergies Allergy Verified 08/02/23 10:25
�Medication �Instructions �Recorded �Confirmed �Type
diltiazem HCl 240 mg 240 mg PO BID ##60 05/09/16 08/02/23 Rx
capsule,extended release 24 hr
rivaroxaban 20 mg tablet (Xarelto) 20 mg PO QPM ##30 05/09/16 08/02/23 Rx
hydroxyzine HCl 25 mg tablet 25 mg PO BID Mental Health/Anxiety 02/07/18 08/02/23 History
roflumilast 500 mcg tablet 250 mcg PO DAILY Lung/Breathing 09/25/18 08/02/23 History
(Daliresp) Issues
sertraline 25 mg tablet 50 mg PO DAILY Depression 09/25/18 08/02/23 History
clindamycin HCl 300 mg capsule 300 mg PO TID Infection 08/02/23 08/02/23 History
fluticasone fur. 100 mcg-umeclid 1 inh inhalation R DAILY 08/02/23 08/02/23 History
62.5 mcg-vilant 25 mcg Lung/Breathing Issues
inhalat.powder (Trelegy Ellipta)
furosemide 40 mg tablet (Lasix) 40 mg PO DAILY Fluid 08/02/23 08/02/23 History
Retention/Swelling
mupirocin 2 % topical ointment 1 applic topical BID left leg 08/02/23 08/02/23 History
Review of Systems
-
History Source: Patient
Constitutional: Reports No Symptoms
EENT: Reports No Symptoms
Respiratory: Reports No Symptoms
Cardiac: Reports No Symptoms
Vascular: Denies Leg Pain / Claudication
Abdomen/GI: Reports No Symptoms
: Reports No Symptoms
Musculoskeletal: Reports Edema (Bilateral lower extremities with swelling, chronic component)
Skin: Reports Other (Left lower extremity With cellulitic rash per patient)
Neurological: Reports No Symptoms
Endocrine: Reports No Symptoms
Physical Exam
Vital Signs
Temp Pulse Resp BP Pulse Ox
98.0 F 66 16 130/65 92
08/04/23 15:12 08/04/23 15:12 08/04/23 15:12 08/04/23 15:12 08/04/23 15:12
Lab Results
08/04/23 06:33
08/04/23 06:33
Physical Exam
General: No Apparent Distress and Comfortable
HEENT: Normocephalic, Anicteric and Atraumatic
Respiratory: Non Labored Respirations
Cardiac: Negative JVD
GI: Soft, Non Tender and Non Distended
Musculoskeletal: Edema (Bilateral lower extremities +1 edema)
Skin: Other (Left lower extremity anterior calf with venous stasis discoloration and erythema)
Neuro: AO x 3
Pulses: Bilateral Femoral: +1 and Bilateral Dorsalis Pedis: Doppler (Nonpalpable)
Assessment / Plan
-
Assessment: 78-year-old male with ongoing left lower extremity rash/cellulitis with accompanying edema
Plan:
Noninvasive arterial duplex with CRISTAL/TBI reviewed left lower extremity within normal CRISTAL and TBI with multiphasic waveforms throughout lower extremity, indicating no focal area of stenosis. Given normal noninvasive study would not recommend at
this time further diagnostic workup for peripheral arterial disease.
Continue aggressive wound care
Will have patient obtain venous insufficiency ultrasound study in outpatient setting and have patient follow-up in our vascular surgery office for continued wound monitoring in roughly 1 month
Ultrasound and follow-up appointment placed in discharge instructions
I performed this shared service with the attending. I evaluated the patient [id number] and have entered clinical documentation as shown in the encounter note. I performed the following component(s): history and physical exam. Note that medical
decision making is not final until attested by vascular attending.
--- NOTE | 2023-08-04 16:54 | W.PN.HOSP.TC ---
Today's Communication/Plan
-
IV antibiotics for today
Transition to PO antibiotics tomorrow and plan for discharge tomorrow
Assessment / Plan
Assessment / Plan
Physical Exam
General: No Apparent Distress and Comfortable
HEENT: Normocephalic and Moist mucous membranes
Respiratory: Clear
Cardiac: S1/S2 and Regular Rhythm
GI: Soft, Non Tender and Normal Bowel Sounds
Musculoskeletal: No Cyanosis and Other (LLE with venous stasis pigmentation with wound on the daniels, tender to palpation, no active drainage)
Skin: Warm
Neuro: Awake, Alert and Oriented x 3
Psych: Calm and Intact Judgment/Insight
Assessment/Plan
LLE wound, concern for cellulitis with history of purulent drainage
Venous stasis disease of the LLE
-Vancomycin, Zosyn and Clindamycin stopped as per ID
-Continue Cefazolin - tomorrow, can transition cefazolin 2 g IV every 8 hours to cephalexin 1000mg po q8h through 08/09/23.
-ID consulted, recommendations appreciated
-General surgery consulted, recommendations appreciated: affected area appears to be venous stasis disease, needs vascular surgery, no surgery needed at this time, they will order CRISTAL and venous US of that leg
-Results of lower extremity ultrasound noted
-CRISTAL results showed PAD: Dr. Florence will see patient in 1 month outpatient
-Patient should also see the wound care center at [place] with Dr. Griffith or RAMONA Sommers
-MRSA negative and blood cultures with no growth to date
Paroxysmal Atrial fibrillation on Xarelto, with history of 2 ablations
Congestive heart failure (sees Dr. Pyle cardiology outpatient)
Cardiomyopathy
-Monitor on telemetry
-Continue Xarelto
-Continue home Lasix
-Daily weights, I's and O's
Left inguinal lymphadenopathy with a 3 cm enlarged left inguinal lymph node
-Seen on lower extremity duplex ultrasound
-Will consider oncology consultation inpatient vs. outpatient
COPD (on 5 L home oxygen nasal cannula only on exertion)
-Continue home Trelegy Ellipta
-Continue Daliresp
DVT Prophylaxis: Lovenox
Code Status: Full Code
Anticipated Discharge: Within 24 hours
Subjective/Interval History
-
Date of Service: August 04, 2023
Patient was seen and examined. He denied any new significant symptoms or complaints.
Objective Data
-
Labs:
Laboratory Results
08/04/23
06:33
WBC 7.8
Hgb 12.4 L
Hct 36.3 L
Plt Count 152
Sodium 138
Potassium 4.2
Chloride 105
Carbon Dioxide 24
BUN 14
Creatinine 0.9
Glucose 100 H
Calcium 8.9
Vital Signs:
Vital Signs
Temp Pulse Resp BP Pulse Ox
98.0 F 66 16 130/65 92
08/04/23 15:12 08/04/23 15:12 08/04/23 15:12 08/04/23 15:12 08/04/23 15:12
I&O
08/03/23 08/04/23 08/05/23
06:59 06:59 06:59
Intake Total 420 / 420
Balance 420 / 420
[2023-08-04] MEDS: XARELTO 20 MG PO (17:02)
[2023-08-04] MEDS: BACTROBAN 2% OINTMENT TOPICAL (20:35)
[2023-08-05 03:33] VITALS: BP 131/66
[2023-08-05 06:00] VITALS: BMI 34.3
[2023-08-05] MEDS: ANCEF 10 IV (06:02)
[2023-08-05 07:00] VITALS: BP 126/64
[2023-08-05 07:45] LABS: % Basophils 0.6 % (0-2); % Eosinophils 3.8 % (0-6); % Immature Granulocytes 0.4 % (0-0.5); % Lymphocytes 39.5 % (20.5-51.1); % Monocytes 10.6 % (1.7-9.3); % Neutrophils 45.1 % (42.2-75.2); Absolute Eosinophils 0.3 10^3/uL (0-0.7); Absolute Lymphocytes 2.8 10^3/uL (1.2-3.4); Absolute Monocytes 0.8 10^3/uL (0.1-0.6); Absolute Neutrophils 3.2 10^3/uL (1.4-6.5); Hematocrit 37.2 % (39.0-52.0); Hemoglobin 12.2 g/dL (13.0-18.0); Mean Corp Hgb Conc. 32.8 g/dL (33.0-37.0); Mean Corpuscular Volume 91.6 fL (80.0-94.0); Mean Platelet Volume 10.8 fL (7.4-10.4); Nucleated Red Blood Cells % 0 % (-); Platelet Count 147 10^3/uL (130-400); Red Blood Cell Count 4.06 10^6/uL (4.70-6.10); Red Cell Dist. Width 14.6 % (11.5-14.5); White Blood Cell Count 7.1 10^3/uL (4.8-10.8)
[2023-08-05 08:12] LABS: Blood Urea Nitrogen 12 mg/dl (9-20); Calcium 8.6 mg/dl (8.4-10.2); Carbon Dioxide 26 mmol/L (22-30); Chloride 105 mmol/L (98-107); Estimated Creatinine Clearance 69 ml/min; Glucose 93 mg/dl (70-99); Potassium 4.1 mmol/L (3.5-5.1); Sodium 140 mmol/L (135-145); eGFR > 60.00
[2023-08-05] MEDS: ATARAX 25 MG PO (08:15)
[2023-08-05] MEDS: ZOLOFT 50 MG PO (08:15)
[2023-08-05] MEDS: DALIRESP 250 MCG PO (08:15)
[2023-08-05] MEDS: CARDIZEM CD 240 MG PO (08:15)
[2023-08-05] MEDS: KEFLEX 1000 MG PO (08:15)
[2023-08-05] MEDS: LASIX 40 MG PO (08:16)
[2023-08-05] MEDS: BACTROBAN 2% OINTMENT 1 APPLIC TOPICAL (08:24)
[2023-08-05] MEDS: SYMBICORT 80/4.5 MCG INHALER 2 PUFF INH (08:39)
[2023-08-05] MEDS: SPIRIVA RESPIMAT 2.5 MCG 2 PUFF INH (08:39)
[2023-08-05 11:00] VITALS: BP 127/60
--- NOTE | 2023-08-05 12:28 | W.PN.HOSP.TC ---
Addendum entered and electronically signed by Gilberto Cain MD 08/05/23 12:36:
Hyperdynamic left ventricular systolic function.
Stage III diastolic dysfunction
Unable to determine whether cellulitis is antibiotic resistant
Original Note:
Today's Communication/Plan
-
Discharge today
Assessment / Plan
Assessment / Plan
Physical Exam
General: No Apparent Distress and Comfortable
HEENT: Normocephalic and Moist mucous membranes
Respiratory: Clear
Cardiac: S1/S2 and Regular Rhythm
GI: Soft, Non Tender and Normal Bowel Sounds
Musculoskeletal: No Cyanosis and Other (LLE with venous stasis pigmentation with wound on the daniels, tender to palpation, no active drainage)
Skin: Warm
Neuro: Awake, Alert and Oriented x 3
Psych: Calm and Intact Judgment/Insight
Assessment/Plan
LLE wound, concern for cellulitis with history of purulent drainage
Venous stasis disease of the LLE
Superficial daniels wounds of the anterior left lower extremity in the setting of lower extremity edema and chronic skin changes consistent with chronic venous disease/venous insufficiency
Right mid superficial femoral artery stenosis
-Vancomycin, Zosyn and Clindamycin stopped as per ID
-Status post Cefazolin
-Start cephalexin 1000mg po q8h through 08/09/23 -- 14 more doses left
-ID consulted, recommendations appreciated
-General surgery consulted, recommendations appreciated: affected area appears to be venous stasis disease, needs vascular surgery, no surgery needed at this time
-Results of lower extremity ultrasound noted
-CRISTAL results showed PAD: Dr. Florence will see patient in 1 month outpatient
-Aggressive compression therapy at all times during the day.
-Leg elevation while at rest.
-Local wound care.
-Patient should also see the wound care center at [place] with Dr. Griffith or RAMONA Sommers
-MRSA negative and blood cultures with no growth to date
Paroxysmal Atrial fibrillation on Xarelto, with history of 2 ablations
Congestive heart failure (sees Dr. Pyle cardiology outpatient)
Cardiomyopathy
-Monitor on telemetry
-Continue Xarelto
-Continue home Lasix
-Daily weights, I's and O's
Left inguinal lymphadenopathy with a 3 cm enlarged left inguinal lymph node
-Seen on lower extremity duplex ultrasound
-Will consider oncology consultation inpatient vs. outpatient
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
COPD (on 5 L home oxygen nasal cannula only on exertion)
-Continue home Trelegy Ellipta
-Continue Daliresp
DVT Prophylaxis: Lovenox
Code Status: Full Code
More than 30 minutes spent in discharge including
Final examination of the patient
Summarizing hospital stay
Instructions for continuing care to all relevant caregivers
Preparation of discharge records, prescriptions, and referral forms
Total time spent (in minutes): 36
Anticipated Discharge: Today
Subjective/Interval History
-
Date of Service: August 05, 2023
Patient was seen and examined. He denied any new symptoms or complaints.
Objective Data
-
Labs:
Laboratory Results
08/05/23
07:00
WBC 7.1
Hgb 12.2 L
Hct 37.2 L
Plt Count 147
Sodium 140
Potassium 4.1
Chloride 105
Carbon Dioxide 26
BUN 12
Creatinine 1.0
Glucose 93
Calcium 8.6
Vital Signs:
Vital Signs
Temp Pulse Resp BP Pulse Ox
97.7 F 82 18 127/60 96
08/05/23 11:00 08/05/23 11:00 08/05/23 11:00 08/05/23 11:00 08/05/23 11:00
I&O
08/04/23 08/05/23 08/06/23
06:59 06:59 06:59
Intake Total 420 / 420 240 / 240
Balance 420 / 420 240 / 240
--- NOTE | 2023-08-05 13:31 | W.DS.TRANS ---
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
-
Discharge Instructions:
Discharge Diagnosis/Procedures Left inguinal lymphadenopathy with a 3 cm
enlarged left inguinal lymph node
Left Lower Extremity wound, concern for
cellulitis with history of purulent drainage
Venous stasis disease of the Left Lower
Extremity
Superficial daniels wounds of the anterior left
lower extremity in the setting of lower
extremity edema and chronic skin changes
consistent with chronic venous disease/venous
insufficiency
Right mid superficial femoral artery stenosis
Paroxysmal Atrial fibrillation on Xarelto, with
history of 2 ablations
Congestive heart failure (sees Dr. Pyle
cardiology outpatient)
Cardiomyopathy
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
COPD (on 5 L home oxygen nasal cannula only on
exertion)
Diet 2 Gram Sodium,Low Cholesterol,Low Fat
Activity As tolerated
Others Tests Your venous reflux ultrasound study is scheduled
for 09/12/2023 at 2 PM here at [place]
[facility]
Instructions:
Stand-Alone Forms:
Changes to Home Medications: Yes
Discharge Medications:
DC Medications w/original date entered in [facility]
diltiazem HCl 240 mg capsule,extended release 24 hr 240 mg PO BID ##60 05/09/16
rivaroxaban 20 mg tablet (Xarelto) 20 mg PO QPM ##30 05/09/16
hydroxyzine HCl 25 mg tablet 25 mg PO BID Mental Health/Anxiety 02/07/18
roflumilast 500 mcg tablet (Daliresp) 250 mcg PO DAILY Lung/Breathing Issues 09/25/18
sertraline 25 mg tablet 50 mg PO DAILY Depression 09/25/18
fluticasone fur. 100 mcg-umeclid 62.5 mcg-vilant 25 mcg inhalat.powder (Trelegy Ellipta) 1 inh inhalation R DAILY Lung/Breathing Issues 08/02/23
furosemide 40 mg tablet (Lasix) 40 mg PO DAILY Fluid Retention/Swelling 08/02/23
mupirocin 2 % topical ointment 1 applic topical BID left leg 08/02/23
cephalexin 500 mg capsule 1,000 mg (2 x 500 mg) PO Q8H #28 caps 08/05/23
Home Medication Changes
Cephalexin is a new medication.
Clindamycin has been stopped.
Pending Results: Yes
Additional Pending Results:
Final results of blood cultures from hospitalization
Total time spent discharging patient (in min): 36
--- NOTE | 2023-08-05 14:01 | CM ---
Patient is for discharge to home today no needs.
Plan; Home no needs.
== END 2023-08-05 14:06 | disposition home or self-care (01) | DRG 603 ==
LOC: 4 WEST ACU 16:55
PROVIDERS: Physician Assistant; ADMITTING PHYSICIAN Hospitalist; CONSULT PHYSICIAN Internal Medicine Infectious Disease; CONSULT PHYSICIAN Surgery; CONSULT PHYSICIAN Surgery Vascular Surgery; EMERGENCY PHYSICIAN Emergency Medicine; FAMILY PHYSICIAN Nurse Practitioner Family
DX: L03.116 Cellulitis of left lower limb (principal); I42.9 Cardiomyopathy, unspecified; I50.30 Unspecified diastolic (congestive) heart failure; Z87.891 Personal history of nicotine dependence; I48.0 Paroxysmal atrial fibrillation; Z79.01 Long term (current) use of anticoagulants; R59.0 Localized enlarged lymph nodes; J44.9 Chronic obstructive pulmonary disease, unspecified
CPT/HCPCS: 73590; 80048; 80053; 83605; 83735; 85025; 85652; 86140; 87040; 87070; 93922; 93925; 93970; 94640; 94660; 96365; 96366; 99284

== ENCOUNTER → 2023-08-15 08:15 | Outpatient (REF) | payer MEDICARE, SELFPAY | LOC: WOUND 08:15 | PROVIDERS: ATTENDING PHYSICIAN Surgery; FAMILY PHYSICIAN Nurse Practitioner Family | DX: L97.829 Non-pressure chronic ulcer of other part of left lower leg with unspecified severity (principal); I87.2 Venous insufficiency (chronic) (peripheral); I48.0 Paroxysmal atrial fibrillation; I50.32 Chronic diastolic (congestive) heart failure; I42.9 Cardiomyopathy, unspecified; J44.9 Chronic obstructive pulmonary disease, unspecified | CPT/HCPCS: 99203 ==

== ENCOUNTER → 2023-09-12 13:45 | Outpatient (REF) | payer MEDICARE, SELFPAY | LOC: RAD 13:45 | PROVIDERS: ATTENDING PHYSICIAN Surgery Vascular Surgery; FAMILY PHYSICIAN Nurse Practitioner Family | DX: I87.2 Venous insufficiency (chronic) (peripheral) (principal) | CPT/HCPCS: 93970 ==

== ENCOUNTER 2024-02-27 16:04 | Inpatient (IN) | payer MEDICARE, SELFPAY ==
[2024-02-27] VITALS (9 sets, daily range): BP systolic 111–162; BP diastolic 55–94; BMI 34.9
[2024-02-27 13:23] LABS: % Basophils 0.3 % (0-2); % Immature Granulocytes 0.9 % (0-0.5); % Lymphocytes 22.9 % (20.5-51.1); % Monocytes 11.7 % (1.7-9.3); % Neutrophils 63.2 % (42.2-75.2); Absolute Eosinophils 0.1 10^3/uL (0-0.7); Absolute Immature Granulocytes 0.1 10^3/uL (0-0.05); Absolute Lymphocytes 2.9 10^3/uL (1.2-3.4); Absolute Monocytes 1.5 10^3/uL (0.1-0.6); Absolute Neutrophils 8.1 10^3/uL (1.4-6.5); Hematocrit 19.3 % (39.0-52.0); Mean Corp Hgb Conc. 31.1 g/dL (33.0-37.0); Mean Corpuscular Hgb 30.9 pg (27.0-31.0); Mean Corpuscular Volume 99.5 fL (80.0-94.0); Nucleated Red Blood Cells % 0 % (-); Platelet Count 240 10^3/uL (130-400); Red Blood Cell Count 1.94 10^6/uL (4.70-6.10); Red Cell Dist. Width 17.9 % (11.5-14.5); White Blood Cell Count 12.8 10^3/uL (4.8-10.8)
[2024-02-27 13:33] LABS: NT-proBNP 583 pg/ml
[2024-02-27 14:01] LABS: ALT (SGPT) < 10 U/L (0-50); AST (SGOT) 14 U/L (17-59); Albumin 2.2 g/dl (3.5-5.0); Alkaline Phosphatase 53 U/L (38-126); Blood Urea Nitrogen 12 mg/dl (9-20); Calcium 5.5 mg/dl (8.4-10.2); Carbon Dioxide 10 mmol/L (22-30); Chloride 122 mmol/L (98-107); Glucose 67 mg/dl (70-99); Potassium 2.3 mmol/L (3.5-5.1); Sodium 143 mmol/L (135-145); Total Protein 3.9 g/dl (6.3-8.2); eGFR > 60.00
[2024-02-27 14:26] LABS: Total Bilirubin 0.2 mg/dl (0.2-1.3)
--- NOTE | 2024-02-27 15:10 | HPS.HSE ---
Family Physician
-
Family Physician: Lara Olsen
Chief Complaint
-
dark stool
History of Present Illness
78-year-old with past medical history of iron deficiency anemia, diastolic heart failure, A-fib on Xarelto presented to us with 2 weeks of dark black stools. he was nauseous. denied vomiting and diarrhea. stated poor oral intake. denied abdominal
pain. stated poor oral intake. denied GRIGSBY but stated dizzy and lightheaded. Denied headache. Patient denied fever, chills, chest pain. Patient stated worsening short of breath for past 2 weeks. Denies dysuria, hematuria.stated some incontience
of urine. Patient denies any NSAIDs use. His last colonoscopy was a year ago
Upon arrival he was noted electrolyte imbalance. His hemoglobin was 6.0. He was ordered IV KCl for hypokalemia, he is ordered 2 units of PRBCs. Patient also ordered calcium gluconate, sodium bicarbonate and Protonix 80 in ER. Admitting for
further management
Medical History
Past Medical History
Past Medical History: Reports Other
Additional Past Medical History:
Iron deficiency anemia
Cardiomyopathy
Chronic diastolic heart failure
Paroxysmal A-fib
COPD
Obstructive sleep apnea
Past Surgical History: Reports Other
Additional Past Surgical History:
Hernia repair
Right knee replacement
Left knee replacement
Cardioversion
Cardiac ablation
Social History
Tobacco: Former Smoker
Alcohol: None
Drug: None
Personal:
Living: With Family
Family History
Family History: Not pertinent
Allergies / Home Medications
Allergies reflects when Allergies were last updated in [facility].
Home Medications with original date entered in [facility]
Allergy/Medication List:
Allergies
Allergy/AdvReac Type Severity Reaction Status Date / Time
No Known Allergies Allergy Verified 02/27/24 13:02
Home Medications
diltiazem HCl 240 mg capsule,extended release 24 hr 240 mg PO BID ##60 05/09/16
rivaroxaban 20 mg tablet (Xarelto) 20 mg PO QPM ##30 05/09/16
hydroxyzine HCl 25 mg tablet 25 mg PO BID Mental Health/Anxiety 02/07/18
roflumilast 500 mcg tablet (Daliresp) 250 mcg PO DAILY Lung/Breathing Issues 09/25/18
sertraline 25 mg tablet 50 mg PO DAILY Depression 09/25/18
fluticasone fur. 100 mcg-umeclid 62.5 mcg-vilant 25 mcg inhalat.powder (Trelegy Ellipta) 1 inh inhalation R DAILY Lung/Breathing Issues 08/02/23
furosemide 40 mg tablet (Lasix) 40 mg PO DAILY Fluid Retention/Swelling 08/02/23
mupirocin 2 % topical ointment 1 applic topical BID left leg 08/02/23
cephalexin 500 mg capsule 1,000 mg (2 x 500 mg) PO Q8H #28 caps 08/05/23
Review of Systems
-
Constitutional: Reports Fatigue
EENT: Reports No Symptoms
Respiratory: Reports Trouble Breathing
Cardiac: Reports No Symptoms
Abdomen/GI: Reports Black Stools
: Reports No Symptoms
Musculoskeletal: Reports No Symptoms
Skin: Reports No Symptoms
Neurological: Reports No Symptoms
Endocrine: Reports No Symptoms
Hematologic/Lymphatic: Reports No Symptoms
Psych: Reports No Symptoms
Physical Exam
Vital Signs
Vital Signs
Temp Pulse Resp BP Pulse Ox
98.2 F 74 18 136/60 100
02/27/24 12:57 02/27/24 14:30 02/27/24 14:30 02/27/24 14:00 02/27/24 14:30
Physical Exam
General: Well Developed, Well Nourished and No Apparent Distress
HEENT: NormoCephalic, Moist mucous membranes and Atraumatic
Respiratory: Clear
Cardiac: S1/S2 and Regular Rhythm; No Murmur or Rub
GI: Soft, Non Tender, Non Distended and Normal Bowel Sounds; No Organomegaly
Rectal: Deferred by Provider
Musculoskeletal: No Clubbing, No Cyanosis and No Edema
Skin: No Rash
Neuro: AO x 3 and Nonfocal/grossly intact
Psych: Calm
Laboratory Results
-
02/27/24 13:05
02/27/24 13:05
Laboratory Results
Total Bilirubin 0.2 mg/dl (0.2-1.3) 02/27/24 13:
AST 14 U/L (17-59) L 02/27/24 13:05
ALT < 10 U/L (0-50) 02/27/24 13:05
Alkaline Phosphatase 53 U/L (38-126) 02/27/24 13:05
Data Reviewed
-
Lab Data: Labs Reviewed by me
Impression/Plan
-
# Acute blood loss anemia secondary to GI bleed
-Positive guaiac
-Hold Xarelto
-IV PPI twice daily
-Transfusion in ER with 2 units
-Hemoglobin 6.0
-Trend hemoglobin
-Transfuse if hemoglobin less than 7 clear liquid diet, n.p.o. after midnight
-GI consulted
#Hypokalemia/metabolic acidosis/hypocalcemia unclear cause
-K2.3, CO2 10, calcium 5.5
-Supplemental with IV KCl, calcium gluconate, sodium bicarb
-Trend BMP in a.m.
#hypoglycemia likely from poor oral intake
-blood glucose on arrival 67
-ctm blood sugar every 4 hours.
# Weakness/fatigue likely from anemia secondary to GI bleed
-PT/OT consulted
# Leukocytosis likely stress reaction
-WBC 12.8, patient is afebrile
Continue to monitor WBC
#Paroxysmal Atrial fibrillation on Xarelto, with history of 2 ablations
-EKG with normal sinus rhythm
-Hold Xarelto
-cardizem continued
#Congestive heart failure (sees Dr. Pyle cardiology outpatient)
#Cardiomyopathy
-Patient not in acute exacerbation
-Daily weights, I's and O's
#COPD (on 6L home oxygen nasal cannula)
-Patient not in acute exacerbation
-Continue supplemental oxygen to keep sat greater than 92
-Continue home Trelegy Ellipta
-Continue Daliresp
DVT Prophylaxis SCDs
Code Status: Full Code
--- NOTE | 2024-02-27 15:19 | CON.GI ---
Addendum entered and electronically signed by Radha Muir DO 02/27/24 16:53:
The patient was seen and examined by me independently in collaboration with the nurse practitioner.
Past medical history/social history/medications/allergies/family history reviewed.
Lab data and imaging data reviewed.
Shawn Syde is a 78 y.o. male w/ pmhx pAfib on xarelto (last dose 02/25) s/p ablation, CHF, femoral artery stenosis, COPD on baseline 6L O2, OA admitted with generalized fatigue and black stools. Hemoglobin found to be 6.0, MCV 99.5; BUN 11.
Additionally, labs notable for acidosis, CO2 10, hypocalcemia 6.9 (corrected Ca), hypoglycemia with glucose of 67 and hypokalemia 2.3. On exam, he is conversationally dyspenic, melena on rectal. Otherwise, offers no complaints.
Of note, he follows with Dr. Sweet as an outpatient. He has a history of obscure GI bleeding in 2021, at which time he presented with melena, EGD, colonoscopy and VCE completed without identifiable source of bleeding.
present for evaluation. She was able to pull up labs from patient's portal. His hemoglobin was 13.5 on 02/05/24.
CXR shows interstitial fibrosis and chronic changes assoc. with COPD, otherwise, no acute pathology.
A/P:
Etiology of metabolic acidosis and electrolyte abnormalities is unclear. He certainly has evidence of GI blood loss, given a 7g drop in an approximately 3 week time period. He is on xarelto, but has been on it for many years. No new risk factor
introduced. Interestingly, he had a similar presentation in 2021 with full endoscopic workup that was ultimately negative, no bleeding source identified.
Given his respiratory status and acidosis, agree with optimization and electrolyte repletion.
BUN WNL with melena on exam. Possibly distal small bowel or right colon?
Plan for 2 units of PRBC
PPI
H&H q12 hours
Maintain 2 large bore peripheral gauge IVs
Active T&C
Will reevaluate tomorrow, possible EGD depending on clinical status
Original Note:
Consultation
-
Date/Time Consultation Requested: 02/27/241509
Date/Time Consultation Performed: 02/27/241519
Requesting Provider: Cal Cardenas PA-C
Performing Provider: DEWAYNE Donald, Ember Muir DO
Reason for Consultation: GI bleed/anemia
Medical History
Chief Complaint / HPI
Chief Complaint: fatigue
History of Present Illness:
Pt is a 78yo with hx afib on Xarelto, COPD( chronic O2 6Liter prior to admission), DAVID, cardiomyopathy, Cpap with sleep apnea,CHF,fem art stenosis, PFO, mild with onset of fatigue, shortness of breath, nausea and black stools for last few
weeks. On admission K 2.3, Co2 10, calcium 5.5, BUN normal, with hbg 6, WBC 12.8. In review with patient he was noted with UTI in January. He last had lab work 01/15 with hbg 13.5 with stable K at that time. Sept hbg was 14. Pt otherwise
denies odynophagia, dysphagia, GERD, vomiting, wt loss, diarrhea, constipation, or red blood in stools. hx EGD [facility] 11/2021 for Melena- small HH, inflammation and glandularity in stomach, gastritis otherwise normal. bx H pylori neg. 12/2021
[facility] colonoscopy hemorrhoids, diverticulosis, multiple polyps, bx TA and HP polyp rectum. Capsule 01/2022 normal no small intestinal bleed colon not entered. Pt denies NSAID, pepto use but does admits to recent wt loss supplement Lipozem.
Past Medical History
Past Medical History: Arrhythmias (afib on Xarelto), CHF, COPD and Other (PFO, cardiomyopathy, sleep apnea, fem art stenosis, DAVID)
Past Surgical History: Cardiac (multiple cardioversions, prior ablation, PVI), Orthopedic (right knee replacement) and Other (hernia repair)
Social History
Tobacco: Former Smoker ( 10 years ago)
Alcohol: None (only ETOH in [employer] years ago)
Drug: None
Personal:
Living: With Family
Employment: Retired
Family History
Family History: Other (no family hx GI malignancies )
Allergies / Home Medications
Allergy/AdvReac Type Severity Reaction Status Date / Time
No Known Allergies Allergy Verified 02/27/24 13:02
�Medication �Instructions �Recorded
diltiazem HCl 240 mg 240 mg PO BID ##60 05/09/16
capsule,extended release 24 hr
rivaroxaban 20 mg tablet (Xarelto) 20 mg PO QPM ##30 05/09/16
hydroxyzine HCl 25 mg tablet 25 mg PO BID Mental Health/Anxiety 02/07/18
roflumilast 500 mcg tablet 250 mcg PO DAILY Lung/Breathing 09/25/18
(Daliresp) Issues
sertraline 25 mg tablet 50 mg PO DAILY Depression 09/25/18
fluticasone fur. 100 mcg-umeclid 1 inh inhalation R DAILY 08/02/23
62.5 mcg-vilant 25 mcg Lung/Breathing Issues
inhalat.powder (Trelegy Ellipta)
furosemide 40 mg tablet (Lasix) 40 mg PO DAILY Fluid 08/02/23
Retention/Swelling
mupirocin 2 % topical ointment 1 applic topical BID left leg 08/02/23
cephalexin 500 mg capsule 1,000 mg (2 x 500 mg) PO Q8H #28 08/05/23
caps
Review of Systems
-
History Source: Patient
Constitutional: Reports Fatigue
EENT: Reports No Symptoms
Respiratory: Reports Trouble Breathing and Other (O2 6 liters )
Cardiac: Reports Palpitations
Abdomen/GI: Reports Nausea and Black Stools
: Reports Other (recent UTI with antibiotic use )
Musculoskeletal: Reports No Symptoms
Neurological: Reports Weakness
Endocrine: Reports No Symptoms
Hematologic/Lymphatic: Reports Bleeding
Vital Signs
Temp Pulse Resp BP Pulse Ox
98.2 F 74 18 136/60 100
02/27/24 12:57 02/27/24 14:30 02/27/24 14:30 02/27/24 14:00 02/27/24 14:30
Physical Exam
Exam
General: Well Developed and Other (some shortness of breath at rest)
HEENT: Normocephalic and Anicteric
Respiratory: Other (decreased with dyspnea at rest, and purse lip breathing at times )
Cardiac: Regular Rhythm and Peripheral Edema
GI: Soft, Non Tender and Non Distended
Rectal: Other (dark brown heme + stool)
Musculoskeletal: No Clubbing and No Cyanosis
Skin: Warm and Dry
Neuro: Awake, Alert and AO x 3
Psych: Calm
Results
WBC 12.8 10^3/uL (4.8-10.8) H 02/27/24 13:05
Hgb 6.0 g/dL (13.0-18.0) L* 02/27/24 13:05
Hct 19.3 % (39.0-52.0) L* 02/27/24 13:05
MCV 99.5 fL (80.0-94.0) H 02/27/24 13:05
Plt Count 240 10^3/uL (130-400) 02/27/24 13:05
Absolute Neuts (auto) 8.1 10^3/uL (1.4-6.5) H 02/27/24 13:05
Sodium 143 mmol/L (135-145) 02/27/24 13:05
Potassium 2.3 mmol/L (3.5-5.1) L* 02/27/24 13:05
Chloride 122 mmol/L (98-107) H 02/27/24 13:05
Carbon Dioxide 10 mmol/L (22-30) L* 02/27/24 13:05
BUN 12 mg/dl (9-20) 02/27/24 13:05
Creatinine 0.5 mg/dL (0.7-1.3) L 02/27/24 13:05
Calcium 5.5 mg/dl (8.4-10.2) L* 02/27/24 13:05
Total Bilirubin 0.2 mg/dl (0.2-1.3) 02/27/24 13:05
AST 14 U/L (17-59) L 02/27/24 13:05
ALT < 10 U/L (0-50) 02/27/24 13:05
Alkaline Phosphatase 53 U/L (38-126) 02/27/24 13:05
Diagnostic Image Results:
02/27/24 CR Chest - 2 Views *
Chronic obstructive pulmonary disease with interstitial fibrosis but no superimposed acute abnormalities
EGD: [facility] 11/2021 for Melena- small HH, inflammation and glandularity in stomach, gastritis otherwise normal. bx H pylori neg.
Colonoscopy: 12/2021 [facility] hemorrhoids, diverticulosis, multiple polyps, bx TA and HP polyp rectum.
Capsule 01/2022 normal no small intestinal bleed colon not entered.
Assessment / Plan
-
Pt is a 78yo with hx afib on Xarelto, COPD( chronic O2 6Liter prior to admission), DAVID, cardiomyopathy, Cpap with sleep apnea,CHF, fem art stenosis, PFO, mild with onset of fatigue, shortness of breath, nausea and black stools for last few
weeks. On admission K 2.3, Co2 10, calcium 5.5 BUN normal with hbg 6, WBC 12.8. In review with patient he was noted with UTI in January. He last had lab work 01/15 with hbg 13.5 with stable K at that time. Sept hbg was 14. Pt otherwise denies
odynophagia, dysphagia, GERD, vomiting, wt loss, diarrhea, constipation, or red blood in stools. hx EGD [facility] 11/2021 for Melena- small HH, inflammation and glandularity in stomach, gastritis otherwise normal. bx H pylori neg. 12/2021 [facility]
colonoscopy hemorrhoids, diverticulosis, multiple polyps, bx TA and HP polyp rectum.Capsule 01/2022 normal no small intestinal bleed colon not entered. Pt denies NSAID, pepto use but does admits to recent wt loss supplement Lipozem.
-symptomatic anemia with acute drop from 13.5 in January to 6 on admission
-melena prior to admission with hx melena with neg EGD in 2021
-increased shortness of breath with hx COPD and 6 liter O2 prior to admission -- follows with Dr. Gore [facility]([phone])
-metabolic acidosis prior to admission
-severe hypokalemia/hypocalcemia/hypoglycemia prior to admission
-recent antibiotic use for UTI
-recent start of Lipozem for wt loss
-PAF on Xarelto prior to admission
other med problems:
-cardiomyopathy
-sleep apnea with c-pap prior to admission
-CHF
-PFO
-mild
-prior ablation and CV
PLAN:etiology of anemia unclear-- hx work up for melena in 2021 with EGD/colon and capsule as noted neg-- current source ? upper but BUN normal vs SB/right colon source-- AVM vs PUD, vs less likely mass within differential
reviewed with patient and currently need medical optimization before considering any repeat GI testing
discussed alternative with UGI with some limitation
agree with transfusion
trend hbg and stool record
ok for clear diet
cont PPI
cont to current acidosis, K, calcium per medical team
Xarelto hold last dose 02/25 PM
family updated at bedside
-
-
Thank you for consultation and allowing me to participate in the patient's care. Please call the fuel verification technician GI physician during the after hours with any questions or concerns.
--- NOTE | 2024-02-27 15:41 | W.PN.UPDATE ---
Update Note
Progress Note Update
This is an addendum to the H&P written by Fatimah Gutiérrez on 02/27/2024. Patient seen and examined independently with POWDERED METAL SUPERVISOR.
78-year-old male past medical history of paroxysmal atrial fibrillation on Xarelto status post ablation, CHF, femoral artery stenosis, COPD on 6 L baseline, osteoarthritis presenting with weakness and fatigue for the past 3 weeks and dark stools.
Hemoccult positive with dark brown stool.
Labs show potassium 2.3, calcium of 5.5. Non-anion gap metabolic acidosis with bicarb of 10. Blood sugar 67. There is leukocytosis. Hemoglobin of 6 from 12 as of 7 months ago.
Chest x-ray shows chronic COPD with interstitial fibrosis without acute abnormalities.
Patient with symptomatic anemia likely secondary to upper GI bleeding. Clear liquids, n.p.o. past midnight, IV Protonix twice daily, 2 units of blood. Check iron studies, B12 and folate. GI consulted.
Patient has been having some intermittent urinary incontinence for the past few weeks. Check urinalysis.
Hypoglycemia is likely due to decreased p.o. intake. Accu-Cheks. Unclear etiology of the hypokalemia, metabolic acidosis and hypocalcemia. Magnesium normal. Give potassium repletion, calcium repletion, IV bicarbonate repletion.
--- NOTE | 2024-02-27 15:43 | ED.GENMED ---
History of Present Illness
General
Chief Complaint: Breathing Problem
Source: patient and spouse
Exam Limitations: none
Time Seen by Provider: 02/27/24 14:40
Nursing documentation reviewed up to this point in time: agreed with
History of Present Illness
History of Present Illness:
78-year-old male past medical history of COPD on oxygen chronically, atrial fibrillation, cardiomyopathy presenting to the emergency department today with concerns of worsening weakness fatigue shortness of breath over the past few weeks. He claims
that he has dark-colored stool over the past few weeks as well. Denies any history of GI bleeds. No history of anemia.
Past History
Past History
ED Past Medical History: COPD
ED Past Surgical History: Cardiac (Cardiac ablation x2)
Social History
Tobacco: Former smoker
Alcohol: None
Drug: None
Personal:
Living: with family
Employment: Retired
Family History
Family History: Other (Noncontributory)
Review of Systems
Review of Systems
Allergies reviewed?: Yes
All Other Systems: ROS reviewed and negative except as documented in HPI and ROS
Phy Exam
Physical Exam
Physical Exam:
GENERAL: Alert , in no apparent distress
EYE: pupils equal and reactive
NECK: Supple, no significant adenopathy.
ENT: o/p clr, mmm.
CARDIAC: Regular rate and rhythm .
LUNGS: Clear breath sounds bilaterally, no acute respiratory distress, no wheezes/rales/rhonchi
ABDOMEN: Rectal examination with dark brown stool guaiac positive soft, without focal tenderness, no r/g, no cvat
NEUROLOGICAL: Alert and oriented, no focal neuro deficits
SKIN: Warm and dry, skin intact.
MUSCULOSKELETAL: No edema, well perfused.
PSYCH: Normal and appropriate interaction.
Scores
Heart Failure Risk
Heart Failure Risk Score: Not Applicable
Course
Orders/Labs/Results
Orders:
Orders
02/27/24 13:03
CR Chest - 2 Views Urgent
Comment:
Reason For Exam: sob
02/27/24 13:05
Complete Blood Count/With Diff Urgent
Comprehensive Metabolic Panel Urgent
Magnesium Urgent
NT-proBNP Urgent
02/27/24 14:41
Type+Screen Urgent
02/27/24 14:44
Add On- LAB Urgent
Tests Added?: magnesium level
02/27/24 14:47
EKG [Electrocardiogram (*1)] Urgent
Reason for Study: Fatigue / Weakness
EKG- Treatment ONCE
Urinalysis Reflex To Culture Urgent
02/27/24 14:48
Add On- LAB Urgent
Tests Added?: tsh free t4
02/27/24 15:02
* Blood Bank Products Urgent
Blood Bank Products: *Packed RBC Leuko(PRBC's)
Quantity: 2
Transfuse Today: Yes
Reason: Anemia
Pantoprazole [Protonix IV] 80 mg IV NOW STA
Potassium Chloride [KCl] 40 meq Dextrose 5%/Water 250 ml [D5w] 250 ml IV NOW
02/27/24 15:25
Calcium Gluconate 1,000 mg IV NOW STA
Sodium Bicarbonate 50 meq IV NOW STA
02/27/24 15:33
Admit/Transfer Patient As Directed
Co-Sign Provider:
Level of Care: Inpatient admission
Assign to:: Telemetry
Physician / Group: richie
Diagnosis: GI bleed
Reason for Telemetry: Arrhythmia
Date to Stop Telemetry: 03/01/24
Time to Stop Telemetry: 11:00
Reason for Hospitalization: GI bleed
Expected length of stay greater than two midnights?: Yes
ELOS- Estimated Length of Stay in days: 3
I certify the patient meets the requirements for IP care: Yes
PRN Pain Medication Management As Directed
May give lesser potent ordered pain med per pt: Yes
preference::
Protocol:: Medication orders for pain may be administered in a
manner that supports deferring to patient preference
when the pt is:
- Requesting an ordered lesser potent pain medication.
Least to most potent pain medications are defined
as: acetaminophen < NSAID < tramadol < opioids
(morphine, oxycodone, hydromorphone).
- Requesting a lesser dose of the same medication IF
ORDERED.
- Requesting a less intrusive route of administration
if both routes are prescribed by the provider (PO <
IV).
02/27/24 15:34
Code Status As Directed
Resuscitation Status: Full Code
03/01/24 11:00
DC Protocol for Telemetry ONCE
Abnormal Lab Results
02/27/24
13:05
WBC 12.8 H 10^3/uL
(4.8-10.8)
RBC 1.94 L 10^6/uL
(4.70-6.10)
Hgb 6.0 L* g/dL
(13.0-18.0)
Hct 19.3 L* %
(39.0-52.0)
MCV 99.5 H fL
(80.0-94.0)
MCHC 31.1 L g/dL
(33.0-37.0)
RDW 17.9 H %
(11.5-14.5)
Abs Immat Gran (auto) 0.1 H 10^3/uL
(0-0.05)
Absolute Neuts (auto) 8.1 H 10^3/uL
(1.4-6.5)
Absolute Monos (auto) 1.5 H 10^3/uL
(0.1-0.6)
Immature Gran % 0.9 H %
(0-0.5)
Monocytes % 11.7 H %
(1.7-9.3)
Potassium 2.3 L* mmol/L
(3.5-5.1)
Chloride 122 H mmol/L
(98-107)
Carbon Dioxide 10 L* mmol/L
(22-30)
Creatinine 0.5 L mg/dL
(0.7-1.3)
Glucose 67 L mg/dl
(70-99)
Calcium 5.5 L* mg/dl
(8.4-10.2)
AST 14 L U/L
(17-59)
Total Protein 3.9 L g/dl
(6.3-8.2)
Albumin 2.2 L g/dl
(3.5-5.0)
02/27/24 13:05
02/27/24 13:05
Vital Signs
Initial and Last Documented VS:
Initial Vital Signs
Temp Pulse Resp BP Pulse Ox
98.2 F 76 24 112/55 96
02/27/24 12:57 02/27/24 12:57 02/27/24 12:57 02/27/24 12:57 02/27/24 12:57
Last Documented Vital Signs
Temp Pulse Resp BP Pulse Ox
98.2 F 74 18 136/60 100
02/27/24 12:57 02/27/24 14:30 02/27/24 14:30 02/27/24 14:00 02/27/24 14:30
MDM/Problems Addressed
MDM/Problems Addressed:
78-year-old male presenting to the emergency department with worsening fatigue generalized weakness over the past few weeks. Patient also has had dark stool. Here he is generally well-appearing in no distress vital signs are normal on arrival
hemoglobin is 6.0 previous baseline of 11. Patient has a dark stool that is guaiac positive concerning for GI bleed. Does currently take Xarelto for previous history of A-fib but currently is in sinus rhythm and has had previous ablation.
Otherwise potassium is 2.3 was given supplementation. Patient was also written for unit of blood and will be admitted for further monitoring and treatment.
*Critical Care Note
Total Time (30-74mins, 75-104mins- exclusive of procedures): Not Applicable
ED Attending Note
-
Portions of this chart may have been created with voice recognition software.� Occasional wrong word or��sound alike� substitutions may have occurred due to the inherent limitations of voice recognition software.
Discharge Plan
Departure
Patient Disposition: Admit
Date of Disposition: 02/27/24
Time of Disposition: 15:45
Admit to: IMU
Admit to doctor: Richie
Presentation/result/management discussed w/ accepting MD/DO: Hospitalist
Patient with high blood pressure during this ER visit?: No
Condition: Fair
Covid-19: Not Applicable
Discharge Problem:
Anemia, Acute hypokalemia, Hypocalcemia
Prescriptions:
No Action
diltiazem HCl 240 MG capsule,extended release 24hr
240 mg PO BID Qty: 60 0RF
Xarelto 20 MG tablet
20 mg PO QPM Qty: 30 0RF
hydroxyzine HCl 25 MG tablet
25 mg PO BID
sertraline 25 MG tablet
50 mg PO DAILY
roflumilast [Daliresp] 500 MCG tablet
250 mcg PO DAILY
furosemide [Lasix] 40 mg Tablet
40 mg PO DAILY
mupirocin 2 % Ointment
1 applic TOPICAL BID
Trelegy Ellipta 100-62.5-25 mcg Blister With Device
1 inh INHALATION R DAILY
cephalexin 500 mg Capsule
1,000 mg PO Q8H Qty: 28 0RF
Referrals:
Lara Olsen CRNP [Family Provider] -
Interventions
Interventions:
*Risk Screen - Suicide Last Done: 02/27/24 12:57
*General Assessment Last Done: 02/27/24 12:57
*Neglect/Abuse Screening Last Done: 02/27/24 12:57
ED- Fall Risk Assessment Last Done: 02/27/24 14:11
*ED COVID-19 Vaccine History Last Done: 02/27/24 14:11
ED- Cardiac Assessment Last Done: 02/27/24 14:11
ED- Pulmonary Assessment Last Done: 02/27/24 14:11
Discharge Date and Time
Print Language: BULGARIAN
[2024-02-27 16:04] LABS: Glucose - Point of Care 124 mg/dl (70-99)
[2024-02-27] MEDS: PROTONIX IV 80 MG IV (16:08)
[2024-02-27] MEDS: SODIUM BICARBONATE 50 MEQ IV (16:08)
[2024-02-27] MEDS: CALCIUM GLUCONATE 1000 MG IV (16:09)
[2024-02-27 17:05] LABS: Free T4 1.43 ng/dl (0.78-2.19)
[2024-02-27 17:19] LABS: TSH 1.16 uIU/ml (0.47-4.68)
[2024-02-27] MEDS: KCL 270 MEQ IV (17:40)
[2024-02-27 19:44] LABS: Urine Albumin Negative (Neg - Trace); Urine Bilirubin Negative (Negative); Urine Character Clear (Clear); Urine Color Yellow; Urine Glucose Negative (Negative); Urine Ketone Negative (Negative); Urine Leukocyte Negative (Negative); Urine Nitrite Negative (Negative); Urine Occult Blood Negative (Negative); Urine Specific Gravity 1.015 (<1.030); Urine Urobilinogen Negative (Neg - 1+)
[2024-02-27] MEDS: CARDIZEM CD 240 MG PO (21:10)
[2024-02-27 21:11] LABS: Glucose - Point of Care 202 mg/dl (70-99)
[2024-02-28] VITALS (9 sets, daily range): BP systolic 117–171; BP diastolic 54–91; PULSE 70–84; O2SAT 94–96; BMI 34.6
[2024-02-28 02:00] LABS: Glucose - Point of Care 118 mg/dl (70-99)
[2024-02-28 03:07] LABS: Hematocrit 22.4 % (39.0-52.0); Hemoglobin 7.3 g/dL (13.0-18.0)
[2024-02-28 06:00] LABS: Glucose - Point of Care 136 mg/dl (70-99)
[2024-02-28 07:00] LABS: Hematocrit 22.6 % (39.0-52.0); Hemoglobin 7.3 g/dL (13.0-18.0); Mean Corp Hgb Conc. 32.3 g/dL (33.0-37.0); Mean Corpuscular Hgb 29.7 pg (27.0-31.0); Mean Corpuscular Volume 91.9 fL (80.0-94.0); Mean Platelet Volume 10.3 fL (7.4-10.4); Platelet Count 227 10^3/uL (130-400); Red Blood Cell Count 2.46 10^6/uL (4.70-6.10); Red Cell Dist. Width 19.9 % (11.5-14.5); White Blood Cell Count 13.7 10^3/uL (4.8-10.8)
[2024-02-28 07:19] LABS: Blood Urea Nitrogen 18 mg/dl (9-20); Calcium 7.8 mg/dl (8.4-10.2); Carbon Dioxide 27 mmol/L (22-30); Chloride 103 mmol/L (98-107); Estimated Creatinine Clearance 87 ml/min; Glucose 120 mg/dl (70-99); Potassium 4.4 mmol/L (3.5-5.1); Sodium 137 mmol/L (135-145); eGFR > 60.00
--- NOTE | 2024-02-28 07:35 | PTCARENOTE ---
Patient arrived on @1952 via stretcher from ED, pulled over to bed with assist x3. Patient AAOx3, very pleasant, denies any pain or discomfort. Skin assessment completed, oriented to unit. Patient was transfused with 1 unit PRBC's on unit with no
adverse reaction, one unit was administered in ED.
[2024-02-28 07:43] LABS: Glucose - Point of Care 145 mg/dl (70-99)
[2024-02-28] MEDS: SPIRIVA RESPIMAT 2.5 MCG 2 PUFF INH (07:54)
[2024-02-28] MEDS: SYMBICORT 80/4.5 MCG INHALER 2 PUFF INH ×2 (07:54→19:30)
[2024-02-28] MEDS: DALIRESP 250 MCG PO (08:11)
[2024-02-28] MEDS: WELLBUTRIN XL (24 hour extended release) 150 MG PO (08:11)
[2024-02-28] MEDS: CARDIZEM CD 240 MG PO ×2 (08:11→20:07)
[2024-02-28] MEDS: ZOLOFT 100 MG PO (08:11)
[2024-02-28] MEDS: PROTONIX IV 40 MG IV ×2 (08:12→20:05)
[2024-02-28] MEDS: NSS (PRESERVATIVE FREE) 10 ML IV ×2 (08:12→20:05)
--- NOTE | 2024-02-28 10:36 | W.PN.GI.CBS2 ---
Addendum entered and electronically signed by Radha Muir DO 02/28/24 13:43:
The patient was seen and examined by me independently in collaboration with the nurse practitioner.
Past medical history/social history/medications/allergies/family history reviewed.
Lab data and imaging data reviewed.
Patient seen in follow-up this morning. He received 2 unit PRBC with inadequate response, repeat Hgb 7.3, but has remained stable. Continues to have wheezing on exam. Certainly, his anemia could be contributing to his increased shortness of breath
but he has significant wheezing on physical exam as well. Labs demonstrate resolution of acidosis and electrolyte abnormalities.
Unclear when iron studies were obtained (added on), likely blood transfusion was performed prior, however, consistent with DAVID, %sat 8, total iron 31, Ferritin 31.
A/P:
-give IV iron
-last dose of xarelto 02/25 PM
-Pulmonary eval
-continue to follow, will discuss if/when to perform endoscopic eval, given patient did have similar presentation in 2021 without identifiable source of bleeding
Original Note:
Today's Communication / Plan
-
PLAN:etiology of anemia unclear-- hx work up for melena in 2021 with EGD/colon and capsule as noted neg-- current source ? upper but BUN normal vs SB/right colon source-- AVM vs PUD, vs less likely mass within differential
reviewed with patient, family and Dr. Brizuela currently need medical optimization before considering any repeat GI testing - for pulm eval
alternative with UGI with some limitation
work up 2021 as noted
s/p transfusion hbg up to 7.3 today
will try to add iron studies to ER labs if able to see if benefit from IV iron
trend hbg and stool record-- no stools overnight
advance to low residue diet
cont PPI
Xarelto hold last dose 02/25 PM
family updated at bedside
Assessment / Plan
-
Pt is a 78yo with hx afib on Xarelto, COPD( chronic O2 6Liter prior to admission), DAVID, cardiomyopathy, Cpap with sleep apnea,CHF, fem art stenosis, PFO, mild with onset of fatigue, shortness of breath, nausea and black stools for last few
weeks. On admission K 2.3, Co2 10, calcium 5.5 BUN normal with hbg 6, WBC 12.8. In review with patient he was noted with UTI in January. He last had lab work 01/15 with hbg 13.5 with stable K at that time. Sept hbg was 14. Pt otherwise denies
odynophagia, dysphagia, GERD, vomiting, wt loss, diarrhea, constipation, or red blood in stools. hx EGD [facility] 11/2021 for Melena- small HH, inflammation and glandularity in stomach, gastritis otherwise normal. bx H pylori neg. 12/2021 [facility]
colonoscopy hemorrhoids, diverticulosis, multiple polyps, bx TA and HP polyp rectum.Capsule 01/2022 normal no small intestinal bleed colon not entered. Pt denies NSAID, pepto use but does admits to recent wt loss supplement Lipozem.
-symptomatic anemia with acute drop from 13.5 in January to 6 on admission
-melena prior to admission with hx melena with neg EGD in 2021
-increased shortness of breath with hx COPD and 6 liter O2 prior to admission -- follows with Dr. Gore [facility]([phone])
-metabolic acidosis on admission now resolved ? lab error
-severe hypokalemia/hypocalcemia/hypoglycemia on admission improving
-recent antibiotic use for UTI
-recent start of Lipozem for wt loss
-PAF on Xarelto prior to admission
-leukocytosis
other med problems:
-cardiomyopathy
-sleep apnea with c-pap prior to admission
-CHF
-PFO
-mild
-prior ablation and CV
PLAN:etiology of anemia unclear-- hx work up for melena in 2021 with EGD/colon and capsule as noted neg-- current source ? upper but BUN normal vs SB/right colon source-- AVM vs PUD, vs less likely mass within differential
reviewed with patient, family and Dr. Brizuela currently need medical optimization before considering any repeat GI testing - for pulm eval
alternative with UGI with some limitation
work up 2021 as noted
s/p transfusion hbg up to 7.3 today
will try to add iron studies to ER labs if able to see if benefit from IV iron
trend hbg and stool record-- no stools overnight
advance to low residue diet
cont PPI
Xarelto hold last dose 02/25 PM
family updated at bedside
Subjective
Subjective
Date of Service: February 28, 2024
no stool overnight, on clear diet still with shortness of breath with short distances
Objective
Data Reviewed
Laboratory Data:
Laboratory Results
02/28/24 06:04
Laboratory Results
Magnesium 2.0 mg/dl (1.6-2.3) 02/27/24 13:05
Total Bilirubin 0.2 mg/dl (0.2-1.3) 02/27/24 13:05
AST 14 U/L (17-59) L 02/27/24 13:05
ALT < 10 U/L (0-50) 02/27/24 13:05
Alkaline Phosphatase 53 U/L (38-126) 02/27/24 13:05
Vital Signs and I&O:
Vital Signs
Temp Pulse Resp BP Pulse Ox
98.0 F 80 16 131/70 97
02/28/24 07:36 02/28/24 07:59 02/28/24 07:59 02/28/24 07:36 02/28/24 07:36
I&O
02/27/24 02/28/24 02/29/24
06:59 06:59 06:59
Intake Total 500 / 500
Output Total 1135 / 1135
Balance -635 / -635
Physical Exam
Physical Exam
HEENT: Anicteric and Moist mucous membranes
Cardiology: Normal Sinus Rhythm
Pulmonary: Wheezes
GI: Soft, Non Distended and Non Tender
Extremities: Edema
Neuro: Non Focal
[2024-02-28 10:47] LABS: Glucose - Point of Care 149 mg/dl (70-99)
--- NOTE | 2024-02-28 11:08 | CON.PUL ---
Consultation
Consultation Request
Date/Time Consultation Requested: 02/28/2024 - 1034
Date/Time Consultation Performed: 02/28/2024 - 110
Requesting Provider: Dr. Brizuela
Performing Provider: Dr. Reyes
Reason for Consultation: COPD/pre-op optimization for endoscopy
Medical History
-
Chief Complaint: Worsening SOB
History of Present Illness:
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
cardiac ablation (10/2013 + 09/2018) on Xarelto, history of PFO, hypertension, iron deficiency anemia and former tobacco use disorder who presents with shortness of breath. He told triage that he feels like his 'lungs are filling up.' He has been
having 2 weeks of dark stools with nausea, with no vomiting or diarrhea. Having poor PO intake. No abdominal pain. Also lightheaded and dizzy. Denies NSAID use. Had been worked up previously in 2021 for melena with an EGD/colonoscopy with
capsule and was reportedly negative. Initial vitals in the ER showed he was afebrile to 98.2 �F, pulse rate 76, breathing at 24 breaths/min, BP 112/55 and saturating 96% on 6 L/min. Initial labs showed mild leukocytosis of 12.8, anemia to 6,
potassium 2.3, serum bicarbonate level 10, glucose 67, calcium 5.5, albumin 2.2. Of note his repeat labs showed normal bicarbonate level and potassium 4.4 despite only getting 40mEq KCl, so unclear if the initial labs were a lab error. He was
transfused 2 units PRBC on 02/27/2024, and admitted to telemetry. Given his history of severe COPD with bibasilar fibrosis, SAMI on CPAP and chronic hypoxic respiratory failure, pulmonary service now consulted for additional
management/recommendations. Of note he does normally follow with pulmonology at [place] (Dr. Gore).
When I saw the patient he was resting in bed in no acute distress, on 6 L/min. He currently has some pain under his right rib. He says last BM was 2 days ago which was black. He has an intermittent cough which is dry and he is currently at
baseline. He says that his shortness of breath is better currently. He takes Trelegy at home for his COPD. He is not on home prednisone. He currently denies GRIGSBY, nausea, vomiting, fevers or chills.
PMHx: History of severe COPD on 6 L/min chronically, sleep apnea on CPAP, aortic stenosis, hyperlipidemia, chronic diastolic heart failure, paroxysmal A-fib/atypical A-flutter s/p multiple cardioversions + ablation (09/2018 + 10/2013) on Xarelto,
hypertension, history of PFO, RBBB, iron deficiency anemia, and former tobacco use
PSHx: Hernia repair, right knee replacement, history of cardiac ablation/PVI, left knee replacement (12/2015),
Past Medical History
Past Medical History: Other (Above as per HPI)
Past Surgical History: Other (Above as per HPI)
Social History
Tobacco: Former Smoker
Alcohol: None
Drug: None
Family History
Family History: CAD (Brother: History of stents and another brother with pacemaker) and Cancer (Father: Lung cancer; Brother: Prostate cancer)
Allergies / Home Medications
Allergies
Allergy/AdvReac Type Severity Reaction Status Date / Time
No Known Allergies Allergy Verified 02/27/24 13:02
Home Medications
�Medication �Instructions �Recorded �Confirmed �Last Taken �Type
diltiazem HCl 240 mg 240 mg PO BID ##60 05/09/16 02/27/24 02/27/24 Rx
capsule,extended release 24 hr
rivaroxaban 20 mg tablet (Xarelto) 20 mg PO QPM ##30 05/09/16 02/27/24 02/26/24 Rx
roflumilast 500 mcg tablet 250 mcg PO DAILY Lung/Breathing 09/25/18 02/27/24 02/27/24 History
(Daliresp) Issues
fluticasone fur. 100 mcg-umeclid 1 inh inhalation R DAILY 08/02/23 02/27/24 02/27/24 History
62.5 mcg-vilant 25 mcg Lung/Breathing Issues
inhalat.powder (Trelegy Ellipta)
bupropion HCl 150 mg 24 hr tablet, 150 mg PO DAILY 02/27/24 02/27/24 02/27/24 History
extended release (Wellbutrin XL)
sertraline 100 mg tablet 100 mg PO DAILY 02/27/24 02/27/24 02/27/24 History
Review of Systems
-
History Source: Patient
All other systems: Negative unless noted
Vitals / Labs / Diagnostic Testing
Vital Signs
Temp Pulse Resp BP Pulse Ox
98.0 F 80 16 131/70 97
02/28/24 07:36 02/28/24 07:59 02/28/24 07:59 02/28/24 07:36 02/28/24 07:36
Lab Data
02/28/24 06:04
Diagnostic Testing:
Physical Exam
-
HEENT: Normocephalic and Anicteric
Cardiovascular: Peripheral Edema (+1 lower extremity edema bilaterally) and Other (Distant cardiac sounds; normal heart rate)
Respiratory: Rales (Bibasilar (L >R)) and Accessory Resp Muscle Use (negative)
GI: Soft, Distended (Abdominal obesity), Non Tender and Normal Bowel Sounds
Neurology: AO x 3 and Tremors (negative)
Skin: Warm and Dry
General: Respiratory Distress (negative), Comfortable, Chills (negative) and Sweats (negative)
Assessment
-
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
cardioversions and cardiac ablation (10/2013 + 09/2018) on Xarelto, history of PFO, hypertension, iron deficiency anemia and former tobacco use disorder who presents with shortness of breath. He told triage that he feels like his 'lungs are filling
up.' He has been having 2 weeks of dark stools with nausea, with no vomiting or diarrhea. Having poor PO intake. No abdominal pain. Also lightheaded and dizzy. Denies NSAID use. Had been worked up previously in 2021 for melena with an
EGD/colonoscopy with capsule and was reportedly negative. Initial vitals in the ER showed he was afebrile to 98.2 �F, pulse rate 76, breathing at 24 breaths/min, BP 112/55 and saturating 96% on 6 L/min. Initial labs showed mild leukocytosis of
12.8, anemia to 6, potassium 2.3, serum bicarbonate level 10, glucose 67, calcium 5.5, albumin 2.2. Of note his repeat labs showed normal bicarbonate level and potassium 4.4 despite only getting 40mEq KCl, so unclear if the initial labs were a lab
error. He was transfused 2 units PRBC on 02/27/2024, and admitted to telemetry. Given his history of severe COPD with bibasilar fibrosis, SAMI on CPAP and chronic hypoxic respiratory failure, pulmonary service now consulted for additional
management/recommendations. Of note he does normally follow with pulmonology at [place].
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
10/2013) on Xarelto, hypertension, history of PFO, RBBB, iron deficiency anemia, and former tobacco use
Impression:
#Symptomatic anemia
#Acute anemia with suspected upper GI bleed with melena
#Reported history of severe COPD/emphysema on home O2 at 6 L/min on Trelegy at home not currently in an acute exacerbation
#Chronic hypoxic respiratory failure on 6 L/min
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
#Chronic HFpEF with stage III diastolic dysfunction
#Valvular heart disease with moderate aortic stenosis with peak/mean gradients across aVF 45/26 mmHg, mild AI, and trace TR via TTE from 06/01/2023
#Former tobacco use
#Paroxysmal A-fib on Xarelto
#SAMI on CPAP
#Hypertension
#History of PFO
#History of iron deficiency anemia
Plan:
- His current CXR is reported as no acute abnormalities and it does look relatively similar to prior CXR from 02/13/2022, however there is some blunting seen at the bilateral costophrenic angles. Will need to correlate clinically for high-output
heart failure in the setting of acute anemia; of note he does have a history of chronic diastolic heart failure with stage III diastolic dysfunction and valvular heart disease
- It is encouraging that he is back down to his baseline home O2 dose
- He is at intermediate�high risk for a low risk procedure; his pulmonary status is optimized for endoscopy given that he is not wheezing, cough is at baseline, he is on his home dose of oxygen and denies SOB at rest
- Takes Trelegy at home so continue with Symbicort + Spiriva with as needed albuterol while hospitalized
- Continue with Daliresp
- Not currently in an acute COPD exacerbation so no need for systemic steroids at this time
- Large bore IV x 2
- GI consulted and he is pending endoscopy
- Continue to trend H&H with serial CBC and transfuse to keep Hb >7g/dL
- He did receive 2 units PRBC on 02/27/2024 with inappropriate rise in Hb from 6 to 7.3
- Hold antiplatelet/anticoagulants until cleared otherwise by GI (he does take Xarelto at home for A-fib)
- Maintain SpO2 88-95% with supplemental O2 and wean down as tolerated
- Incentive spirometer
- Replete electrolytes with K>4, Mg>2
- Maintain euglycemia with goal BG >100 and <180
- prn nebulized bronchodilators
- DVT ppx: SCDs for now; continue to hold xarelto
Pulmonary service will continue to follow along.
All imaging was personally reviewed.
Data:
CXR 02/27/2024: Chronic obstructive pulmonary disease with interstitial fibrosis but no superimposed acute abnormalities
Total time spent today was 58 minutes for this encounter. Time includes reviewing laboratory test/imaging results, reviewing pertinent medical records, obtaining and reviewing medical history, performing an appropriate exam, ordering medications,
tests and procedures. Time also includes documentation of this encounter, coordinating patient care and communicating with other healthcare professionals. Total time does not include separately billed tests performed on this date of service.
[2024-02-28 11:17] LABS: Iron 31 ug/dl (49-181); Percent Saturation 8 % (20-50); Total Iron Binding Capacity 365 ug/dl (261-462)
[2024-02-28 12:23] LABS: Hematocrit 22.6 % (39.0-52.0); Hemoglobin 7.3 g/dL (13.0-18.0)
[2024-02-28 13:17] LABS: Ferritin 31.4 ng/ml (17.9-464.0)
--- NOTE | 2024-02-28 15:21 | W.PN.HOSP.TC ---
Today's Communication/Plan
-
Assessment / Plan
Assessment / Plan
NAD, sitting in bedside chair
Scleral Anicteric, pale conjunctiva
MMM
No JVD
CTABL
RRR, S1/S2
Soft, NT, ND, BS+
Warm, Dry
AAOx3
Calm
Anemia symptomatic acute blood loss/acute on chronic anemia/normocytic
S/p 2 units PRBC
Monitor for blood loss from GI source
GI following
Twice daily IV PPI
Consult pulmonary for clearance for potential EGD
CLD
Hold Xarelto
Metabolic acidosis s/p 1 amp bicarb with associated electrolyte abnormalities that was noted on initial labs
Likely lab error, labs improved without much intervention
Chronic ILD/COPD
Uses approximately 2 to 3 L of nasal cannula O2 at baseline
Continue Daliresp and MDIs
Sleep apnea
Continue CPAP prior to admission
P A-fib
Continue Dilt
Hold Xarelto
Monitor on telemetry
Anticipated Discharge: 24 - 48 hours
Subjective/Interval History
-
Date of Service: February 28, 2024
Seen and examined. No new complaints. No acute overnight events.
S/p 2 units PRBC
Laughing in good spirits family at bedside
Objective Data
-
Labs:
Laboratory Results
02/28/24 02/28/24
06:04 11:59
WBC 13.7 H
Hgb 7.3 L 7.3 L
Hct 22.6 L 22.6 L
Plt Count 227
Sodium 137
Potassium 4.4 D
Chloride 103
Carbon Dioxide 27
BUN 18
Creatinine 0.8
Glucose 120 H
Calcium 7.8 L D
Vital Signs:
Vital Signs
Temp Pulse Resp BP Pulse Ox
98.1 F 70 17 120/69 97
02/28/24 11:07 02/28/24 11:07 02/28/24 11:07 02/28/24 11:07 02/28/24 11:07
I&O
02/27/24 02/28/24 02/29/24
06:59 06:59 06:59
Intake Total 500 / 500
Output Total 1135 / 1135
Balance -635 / -635
[2024-02-28 16:49] LABS: Glucose - Point of Care 122 mg/dl (70-99)
[2024-02-28] MEDS: FLUSH (NSS) 2 FLUSH IV (20:10)
[2024-02-28 22:08] LABS: Glucose - Point of Care 122 mg/dl (70-99)
[2024-02-29] VITALS (7 sets, daily range): BP systolic 110–131; BP diastolic 48–76; BMI 34.5
[2024-02-29] MEDS: MYLICON 80 MG PO (00:51)
[2024-02-29 07:08] LABS: Blood Urea Nitrogen 18 mg/dl (9-20); Calcium 8.2 mg/dl (8.4-10.2); Carbon Dioxide 26 mmol/L (22-30); Chloride 101 mmol/L (98-107); Estimated Creatinine Clearance 70 ml/min; Glucose 128 mg/dl (70-99); Potassium 4.3 mmol/L (3.5-5.1); Sodium 137 mmol/L (135-145); eGFR > 60.00
[2024-02-29] MEDS: ZOLOFT 100 MG PO (07:39)
[2024-02-29] MEDS: DALIRESP 250 MCG PO (07:39)
[2024-02-29] MEDS: WELLBUTRIN XL (24 hour extended release) 150 MG PO (07:39)
[2024-02-29] MEDS: SYMBICORT 80/4.5 MCG INHALER 2 PUFF INH ×2 (07:40→19:29)
[2024-02-29] MEDS: SPIRIVA RESPIMAT 2.5 MCG 2 PUFF INH (07:40)
[2024-02-29] MEDS: NSS (PRESERVATIVE FREE) 10 ML IV ×2 (07:40→19:39)
[2024-02-29] MEDS: CARDIZEM CD 240 MG PO ×2 (07:40→19:39)
[2024-02-29] MEDS: PROTONIX IV 40 MG IV ×2 (07:41→19:39)
[2024-02-29 07:50] LABS: Glucose - Point of Care 142 mg/dl (70-99)
--- NOTE | 2024-02-29 08:06 | PN.CDI ---
CDI
- -
CDI:
Physician Documentation Request
Admit Date: 02/27/24 16:04
Dear Doctor Gelacio,
Please review the following and provide your response in the progress notes.
Clinical Indicators:
PN, 02/27
#Anemia symptomatic acute blood loss/acute on chronic anemia/normocytic
#...S/p 2 units PRBC
#...Monitor for blood loss from GI source
#P A-fib
#...Hold Xarelto
Based on the above and your clinical assessment, please clarify the relationship, if any, between these conditions:
Yes, Acute blood loss anemia/GI bleed is enhanced by/related to/associated with/due to Xarelto.
No, Acute blood loss anemia/GI bleed is not enhanced by/ related to/associated with/due to Xarelto but it is due to ___. (Please specify)
Other (please specify)
Use of terms such as suspected, likely, concern for, or probable (associated with a specific diagnosis that is being evaluated, monitored, or treated as if it exists) are acceptable and can be coded in the inpatient setting, when documented at the
time of discharge.
Thank you,
Zina Morgan RN BSN CCDS
CDI Specialist
please contact via tiger text
Please use your independent medical judgment in providing your response.
[2024-02-29 08:52] LABS: Hematocrit 22.8 % (39.0-52.0); Hemoglobin 7.1 g/dL (13.0-18.0); Mean Corp Hgb Conc. 31.1 g/dL (33.0-37.0); Mean Corpuscular Hgb 29.2 pg (27.0-31.0); Mean Corpuscular Volume 93.8 fL (80.0-94.0); Mean Platelet Volume 9.9 fL (7.4-10.4); Platelet Count 215 10^3/uL (130-400); Red Blood Cell Count 2.43 10^6/uL (4.70-6.10); Red Cell Dist. Width 19.6 % (11.5-14.5); White Blood Cell Count 11.3 10^3/uL (4.8-10.8)
--- NOTE | 2024-02-29 08:55 | W.PN.PUL3 ---
Today's Communication / Plan
-
Start short course of prednisone given faint expiratory wheezing heard on exam today to avoid any daylin-/postprocedural bronchospasm in light of EGD tomorrow
Continue with supplemental oxygen and titrate to SpO2 80-95%
Large bore IV x 2
PPI
EGD planned for tomorrow
Check venous blood gas tomorrow morning and if pCO2 is elevated then would consider transitioning to BiPAP after EGD is done to avoid any acute hypercapnia in light of upcoming anesthesia
Trend H&H and transfuse to keep Hb >7 g/dL
Hold antiplatelet/anticoagulants for now until cleared otherwise by GI
Continue Daliresp, Spiriva + Symbicort
As needed albuterol
Pulmonary service will continue to briefly follow along until after his EGD has been completed
Assessment
-
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
cardioversions and cardiac ablation (10/2013 + 09/2018) on Xarelto, history of PFO, hypertension, iron deficiency anemia and former tobacco use disorder who presents with shortness of breath. He told triage that he feels like his 'lungs are filling
up.' He has been having 2 weeks of dark stools with nausea, with no vomiting or diarrhea. Having poor PO intake. No abdominal pain. Also lightheaded and dizzy. Denies NSAID use. Had been worked up previously in 2021 for melena with an
EGD/colonoscopy with capsule and was reportedly negative. Initial vitals in the ER showed he was afebrile to 98.2 �F, pulse rate 76, breathing at 24 breaths/min, BP 112/55 and saturating 96% on 6 L/min. Initial labs showed mild leukocytosis of
12.8, anemia to 6, potassium 2.3, serum bicarbonate level 10, glucose 67, calcium 5.5, albumin 2.2. Of note his repeat labs showed normal bicarbonate level and potassium 4.4 despite only getting 40mEq KCl, so unclear if the initial labs were a lab
error. He was transfused 2 units PRBC on 02/27/2024, and admitted to telemetry. Given his history of severe COPD with bibasilar fibrosis, SAMI on CPAP and chronic hypoxic respiratory failure, pulmonary service now consulted for additional
management/recommendations. Of note he does normally follow with pulmonology at [place].
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
10/2013) on Xarelto, hypertension, history of PFO, RBBB, iron deficiency anemia, and former tobacco use
Impression:
#Symptomatic anemia
#Acute anemia with suspected upper GI bleed with melena
#Reported history of severe COPD/emphysema on home O2 at 4-6 L/min on Trelegy at home not currently in an acute exacerbation
#Chronic hypoxic respiratory failure on 6 L/min
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
#Chronic HFpEF with stage III diastolic dysfunction
#Valvular heart disease with moderate aortic stenosis with peak/mean gradients across aVF 45/26 mmHg, mild AI, and trace TR via TTE from 06/01/2023
#Former tobacco use
#Paroxysmal A-fib on Xarelto
#SAMI on CPAP
#Hypertension
#History of PFO
#History of iron deficiency anemia
Plan:
- His current CXR is reported as no acute abnormalities and it does look relatively similar to prior CXR from 02/13/2022, however there is some blunting seen at the bilateral costophrenic angles. Will need to correlate clinically for high-output
heart failure in the setting of acute anemia; of note he does have a history of chronic diastolic heart failure with stage III diastolic dysfunction and valvular heart disease
- It is encouraging that he is back down to his baseline home O2 dose
- He is at intermediate�high risk for a low risk procedure; his pulmonary status is optimized for endoscopy given that he is not wheezing, cough is at baseline, he is on his home dose of oxygen and denies SOB at rest
- Given that I hear faint expiratory wheezing today on exam and given his severe COPD, I will start him on systemic steroids today to help prevent any periprocedural bronchospasm tomorrow for EGD
- Takes Trelegy at home so continue with Symbicort + Spiriva with as needed albuterol while hospitalized
- Continue with Daliresp
- Large bore IV x 2
- PPI IV BID
- GI consulted and he is pending EGD tomorrow (03/01/2024)
- Continue to trend H&H with serial CBC and transfuse to keep Hb >7g/dL
- He did receive 2 units PRBC on 02/27/2024 with inappropriate rise in Hb from 6 to 7.3
- Hold antiplatelet/anticoagulants until cleared otherwise by GI (he does take Xarelto at home for A-fib)
- Maintain SpO2 88-95% with supplemental O2 and wean down as tolerated
- Incentive spirometer q1hr while awake
- Replete electrolytes with K>4, Mg>2
- Maintain euglycemia with goal BG >100 and <180
- prn nebulized bronchodilators
- DVT ppx: SCDs for now; continue to hold xarelto
Pulmonary service will continue to briefly follow along until after his EGD is completed. 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
All imaging was personally reviewed.
Data:
CXR 02/27/2024: Chronic obstructive pulmonary disease with interstitial fibrosis but no superimposed acute abnormalities
Total time spent today was 37 minutes for this encounter. Time includes reviewing laboratory test/imaging results, reviewing pertinent medical records, obtaining and reviewing medical history, performing an appropriate exam, ordering medications,
tests and procedures. Time also includes documentation of this encounter, coordinating patient care and communicating with other healthcare professionals. Total time does not include separately billed tests performed on this date of service.
Subjective Data
-
Date of Service:
Date of Service: February 29, 2024
Chief Complaint: Pulmonary Follow Up
Subjective:
Patient was seen and evaluated today at bedside. Currently on 5 L/min nasal cannula and breathing comfortably. Patient's , Candida, at bedside and all questions were answered. He is sitting in chair no acute distress and currently denies SOB.
Denies cough, GRIGSBY, abdominal pain, nausea, fevers or chills.
Review of Systems
General: Other (Negative unless mentioned above)
Objective Data
Data Reviewed
Vital Signs / I&O / Oxygen:
Vital Signs
Temp Pulse Resp BP Pulse Ox
97.7 F 68 18 131/50 98
02/29/24 07:05 02/29/24 07:46 02/29/24 07:46 02/29/24 07:05 02/29/24 07:46
Intake and Output
02/28/24 02/29/24 03/01/24
06:59 06:59 06:59
Intake Total 500 / 500 1320 / 1320
Output Total 1135 / 1135
Balance -635 / -635 1320 / 1320
SaO2 98
Nasal Cannula flow liters per 5
minute
Physical Exam
General: Respiratory Distress (negative), Comfortable, Chills (negative) and Sweats (negative)
HEENT: Normocephalic and Anicteric
Cardiovascular: S1-S2, Rub (negative) and Peripheral Edema (+1 lower extremity edema bilaterally)
Respiratory: Wheeze (Faint expiratory wheezing heard in the lower-mid lung ellison bilaterally), Crackles (Bibasilar (L>R)), Rhonchi (negative), Accessory Resp Muscle Use (negative), Stridor (negative) and Other (Grossly diminished breath sounds
bilaterally)
GI: Soft, Distended (Abdominal obesity), Non Tender and Normal Bowel Sounds
Neurology: AO x 3 and Tremors (negative)
Skin: Warm, Dry, Rash (Chronic venous stasis dermatitis changes seen bilaterally in the lower extremities) and Other (Severe dry skin seen mainly in the left lower extremity around his daniels)
Labs/Micro/Reports
Lab Data
02/29/24 08:34
[2024-02-29 09:29] LABS: Blood Urea Nitrogen 18 mg/dl (9-20); Calcium 8.2 mg/dl (8.4-10.2); Carbon Dioxide 29 mmol/L (22-30); Chloride 102 mmol/L (98-107); Estimated Creatinine Clearance 77 ml/min; Glucose 133 mg/dl (70-99); Potassium 4.4 mmol/L (3.5-5.1); Sodium 137 mmol/L (135-145); eGFR > 60.00
--- NOTE | 2024-02-29 10:23 | W.PN.GI.CBS2 ---
Addendum entered and electronically signed by Radha Muir DO 02/29/24 10:52:
The patient was seen and examined by me independently in collaboration with the nurse practitioner.
Past medical history/social history/medications/allergies/family history reviewed.
Lab data and imaging data reviewed.
Patient seen in follow-up. No overnight events, he admits to improvement in his shortness of breath. He was seen by pulmonary yesterday, deemed moderate to high risk for low risk procedure. He is felt to be optimized from a pulmonary perspective.
Transfused with a total of 2 units PRBC, inadequate response. 6.0 --> 7.3. Repeat this morning was 7.1. Iron studies c/w DAVID.
Give IV Iron x 3 days
Prior obscure GI bleeding-- neg. EGD/COL/VCE; current presentation is similar with melena, but normal BUN-- distal small bowel vs. right colon also possible
No stools overnight
Xarelto held, last dose 02/25 PM
Recommend EGD for further eval, patient is reluctant, would likem to discuss with his family. He is hemodynamically stable, so okay to hold off and discuss more once he decides
C/w PPI
Will follow-up with patient later in the day after he speaks with his family.
Original Note:
Today's Communication / Plan
-
PLAN:etiology of anemia unclear-- hx work up for melena in 2021 with EGD/colon and capsule as noted neg-- current source ? upper but BUN normal vs SB/right colon source-- AVM vs PUD, vs less likely mass within differential
s/p pulm eval -- appreciate recs-- intermediate to high risk for low risk procedure- pulm status optimized but still short of breath at rest-- offered EGD today with risk - pt not sure if wants to proceed. He wishes to review with family and
consider for 03/01
alternative with UGI with some limitation vs follow hbg and transfuse as needed
work up 2021 as noted
s/p transfusion hbg up to 7.3 02/27 and 7.1 today
iron studies more c/w iron deficiency will add IV iron x 3 days
trend hbg and stool record-- no stools overnight
will add miralax today then PRN
cont low residue diet
cont PPI
Xarelto hold last dose 02/25 PM
reviewed with nursing to contact us for family decision vs need to further review when then come in today
Assessment / Plan
-
Pt is a 78yo with hx afib on Xarelto, COPD( chronic O2 6Liter prior to admission), DAVID, cardiomyopathy, Cpap with sleep apnea,CHF, fem art stenosis, PFO, mild with onset of fatigue, shortness of breath, nausea and black stools for last few
weeks. On admission K 2.3, Co2 10, calcium 5.5 BUN normal with hbg 6, WBC 12.8. In review with patient he was noted with UTI in January. He last had lab work 01/15 with hbg 13.5 with stable K at that time. Sept hbg was 14. Pt otherwise denies
odynophagia, dysphagia, GERD, vomiting, wt loss, diarrhea, constipation, or red blood in stools. hx EGD [facility] 11/2021 for Melena- small HH, inflammation and glandularity in stomach, gastritis otherwise normal. bx H pylori neg. 12/2021 [facility]
colonoscopy hemorrhoids, diverticulosis, multiple polyps, bx TA and HP polyp rectum.Capsule 01/2022 normal no small intestinal bleed colon not entered. Pt denies NSAID, pepto use but does admits to recent wt loss supplement Lipozem.
-symptomatic anemia with acute drop from 13.5 in January to 6 on admission with iron deficiency
-melena prior to admission with hx melena with neg EGD in 2021
-increased shortness of breath with hx COPD and 6 liter O2 prior to admission -- follows with Dr. [facility]([phone])
-metabolic acidosis on admission now resolved ? lab error
-severe hypokalemia/hypocalcemia/hypoglycemia on admission improving
-recent antibiotic use for UTI
-recent start of Lipozem for wt loss
-PAF on Xarelto prior to admission
-leukocytosis
other med problems:
-cardiomyopathy
-sleep apnea with c-pap prior to admission
-CHF
-PFO
-mild
-prior ablation and CV
PLAN:etiology of anemia unclear-- hx work up for melena in 2021 with EGD/colon and capsule as noted neg-- current source ? upper but BUN normal vs SB/right colon source-- AVM vs PUD, vs less likely mass within differential
s/p pulm eval -- appreciate recs-- intermediate to high risk for low risk procedure- pulm status optimized but still short of breath at rest-- offered EGD today with risk - pt not sure if wants to proceed. He wishes to review with family and
consider for 03/01
alternative with UGI with some limitation vs follow hbg and transfuse as needed
work up 2021 as noted
s/p transfusion hbg up to 7.3 02/27 and 7.1 today
iron studies more c/w iron deficiency will add IV iron x 3 days
trend hbg and stool record-- no stools overnight
will add miralax today then PRN
cont low residue diet
cont PPI
Xarelto hold last dose 02/25 PM
reviewed with nursing to contact us for family decision vs need to further review when then come in today
Subjective
Subjective
Date of Service: February 29, 2024
tolerating low residue diet, no stools recorded since admission
Objective
Data Reviewed
Laboratory Data:
Laboratory Results
02/29/24 08:34
02/29/24 08:34
Laboratory Results
Magnesium 2.0 mg/dl (1.6-2.3) 02/27/24 13:05
Total Bilirubin 0.2 mg/dl (0.2-1.3) 02/27/24 13:05
AST 14 U/L (17-59) L 02/27/24 13:05
ALT < 10 U/L (0-50) 02/27/24 13:05
Alkaline Phosphatase 53 U/L (38-126) 02/27/24 13:05
Vital Signs and I&O:
Vital Signs
Temp Pulse Resp BP Pulse Ox
97.7 F 68 18 131/50 98
02/29/24 07:05 02/29/24 07:46 02/29/24 07:46 02/29/24 07:05 02/29/24 07:46
I&O
02/28/24 02/29/24 03/01/24
06:59 06:59 06:59
Intake Total 500 / 500 1320 / 1320
Output Total 1135 / 1135
Balance -635 / -635 1320 / 1320
Physical Exam
Physical Exam
HEENT: Anicteric and Moist mucous membranes
Cardiology: Normal Sinus Rhythm
Pulmonary: Other (still with some dyspnea at rest )
GI: Soft and Distended (large abdomen )
Neuro: Non Focal
[2024-02-29] MEDS: MIRALAX 17 GRAMS PO (10:36)
[2024-02-29 12:02] LABS: Glucose - Point of Care 185 mg/dl (70-99)
--- NOTE | 2024-02-29 13:50 | W.PN.UPDATE ---
Update Note
Progress Note Update
spoke with patient and reviewed pulm eval with risk/benefit/alternative for bleeding. Will plan of EGD in AM . All questions answered.
--- NOTE | 2024-02-29 14:30 | W.PN.HOSP.TC ---
Addendum entered and electronically signed by Sanjay Brizuela MD 02/29/24 16:46:
Yes, Acute blood loss anemia/GI bleed is enhanced by/related to/associated with/due to Xarelto
Original Note:
Today's Communication/Plan
-
Assessment / Plan
Assessment / Plan
NAD, sitting in bedside chair
Scleral Anicteric, pale conjunctiva
MMM
No JVD
CTABL
RRR, S1/S2
Soft, NT, ND, BS+
Warm, Dry
AAOx3
Calm
Anemia symptomatic acute blood loss/acute on chronic anemia/normocytic
S/p 2 units PRBC
Monitor for blood loss from GI source
GI following,
Twice daily IV PPI
Per primary acceptable risk for EGD
CLD, n.p.o. after midnight
Hold Xarelto
Metabolic acidosis s/p 1 amp bicarb with associated electrolyte abnormalities that was noted on initial labs
Likely lab error, labs improved without much intervention
Chronic ILD/COPD
Uses approximately 2 to 3 L of nasal cannula O2 at baseline
Continue Daliresp and MDIs
Sleep apnea
Continue CPAP prior to admission
P A-fib
Continue Dilt
Hold Xarelto
Monitor on telemetry
Anticipated Discharge: 24 - 48 hours
Subjective/Interval History
-
Date of Service: February 29, 2024
Seen and examined. No new complaints. No acute overnight events.
Still has some shortness of breath but overall improved from previous
States when he walked from the bathroom back to his chair he was short of breath and did not wear his oxygen at that time.
He states that he would like to speak to his about upper endoscopy however is interested
Objective Data
-
Labs:
Laboratory Results
02/29/24 02/29/24
06:04 08:34
WBC 11.3 H
Hgb 7.1 L
Hct 22.8 L
Plt Count 215
Sodium 137 137
Potassium 4.3 4.4
Chloride 101 102
Carbon Dioxide 26 29
BUN 18 18
Creatinine 1.0 0.9
Glucose 128 H 133 H
Calcium 8.2 L 8.2 L
Vital Signs:
Vital Signs
Temp Pulse Resp BP Pulse Ox
98.4 F 81 19 110/48 99
02/29/24 11:05 02/29/24 11:05 02/29/24 11:05 02/29/24 11:05 02/29/24 11:05
I&O
02/28/24 02/29/24 03/01/24
06:59 06:59 06:59
Intake Total 500 / 500 1320 / 1320
Output Total 1135 / 1135
Balance -635 / -635 1320 / 1320
[2024-02-29] MEDS: FERRLECIT 110 MG IV (14:31)
[2024-02-29] MEDS: DELTASONE 50 MG PO (16:09)
[2024-02-29 16:45] LABS: Glucose - Point of Care 159 mg/dl (70-99)
[2024-02-29 21:40] LABS: Glucose - Point of Care 237 mg/dl (70-99)
[2024-03-01] VITALS (16 sets, daily range): BP systolic 18–133; BP diastolic 50–93; BMI 34.7
[2024-03-01 06:28] LABS: Glucose - Point of Care 171 mg/dl (70-99)
[2024-03-01 06:39] LABS: Venous Blood Gas B.E. -0.3 mmol/L (-4 to +4); Venous Blood Gas HCO3 25.4 mmol/L (22-27); Venous Blood Gas pCO2 46 mmHg (35-48); Venous Blood Gas pH 7.35 (7.32-7.43); Venous Blood Gas pO2 67 mmHg (30-50)
[2024-03-01 06:45] LABS: Hematocrit 22.2 % (39.0-52.0); Hemoglobin 6.9 g/dL (13.0-18.0); Mean Corp Hgb Conc. 31.1 g/dL (33.0-37.0); Mean Corpuscular Hgb 29.1 pg (27.0-31.0); Mean Corpuscular Volume 93.7 fL (80.0-94.0); Mean Platelet Volume 10.1 fL (7.4-10.4); Platelet Count 214 10^3/uL (130-400); Red Blood Cell Count 2.37 10^6/uL (4.70-6.10); White Blood Cell Count 11.9 10^3/uL (4.8-10.8)
[2024-03-01 06:50] LABS: INR 1.09; PT 14.7 Sec (11.4-14.6)
--- NOTE | 2024-03-01 06:53 | W.PN.UPDATE ---
Update Note
Progress Note Update
Hgb 6.9, consent signed in chart, type & screen done, Will transfuse 1 unit of blood.
[2024-03-01 07:33] LABS: Blood Urea Nitrogen 19 mg/dl (9-20); Calcium 8.2 mg/dl (8.4-10.2); Carbon Dioxide 24 mmol/L (22-30); Chloride 101 mmol/L (98-107); Estimated Creatinine Clearance 77 ml/min; Glucose 148 mg/dl (70-99); Potassium 4.4 mmol/L (3.5-5.1); Sodium 137 mmol/L (135-145); eGFR > 60.00
[2024-03-01] MEDS: DALIRESP 250 MCG PO (07:49)
[2024-03-01] MEDS: ZOLOFT 100 MG PO (07:49)
[2024-03-01] MEDS: DELTASONE 50 MG PO (07:49)
[2024-03-01] MEDS: CARDIZEM CD 240 MG PO ×2 (07:50→21:43)
[2024-03-01] MEDS: FLUSH (NSS) 2 FLUSH IV (07:50)
[2024-03-01] MEDS: WELLBUTRIN XL (24 hour extended release) 150 MG PO (07:50)
[2024-03-01] MEDS: PROTONIX IV 40 MG IV ×2 (07:50→21:43)
[2024-03-01] MEDS: NSS (PRESERVATIVE FREE) 10 ML IV ×2 (07:50→21:44)
[2024-03-01] MEDS: SPIRIVA RESPIMAT 2.5 MCG 2 PUFF INH (07:57)
[2024-03-01] MEDS: SYMBICORT 80/4.5 MCG INHALER 2 PUFF INH ×2 (07:57→19:25)
--- NOTE | 2024-03-01 09:34 | W.PN.PUL3 ---
Today's Communication / Plan
-
Continue short course of prednisone given faint expiratory wheezing heard on exam to avoid any daylin-/postprocedural bronchospasm in light of EGD today
Continue with supplemental oxygen and titrate to SpO2 80-95%
Large bore IV x 2
PPI
Blood gas checked today shows pH status WNL at 7.35, pCO2 46 � no need for BiPAP after endoscopy
Trend H&H and transfuse to keep Hb >7 g/dL
Hold antiplatelet/anticoagulants for now until cleared otherwise by GI --> okay to resume Xarelto per GI if tolerating diet and Hb remained stable
Continue Daliresp, Spiriva + Symbicort
As needed albuterol
Pulmonary service will continue to briefly follow.
Assessment
-
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
cardioversions and cardiac ablation (10/2013 + 09/2018) on Xarelto, history of PFO, hypertension, iron deficiency anemia and former tobacco use disorder who presents with shortness of breath. He told triage that he feels like his 'lungs are filling
up.' He has been having 2 weeks of dark stools with nausea, with no vomiting or diarrhea. Having poor PO intake. No abdominal pain. Also lightheaded and dizzy. Denies NSAID use. Had been worked up previously in 2021 for melena with an
EGD/colonoscopy with capsule and was reportedly negative. Initial vitals in the ER showed he was afebrile to 98.2 �F, pulse rate 76, breathing at 24 breaths/min, BP 112/55 and saturating 96% on 6 L/min. Initial labs showed mild leukocytosis of
12.8, anemia to 6, potassium 2.3, serum bicarbonate level 10, glucose 67, calcium 5.5, albumin 2.2. Of note his repeat labs showed normal bicarbonate level and potassium 4.4 despite only getting 40mEq KCl, so unclear if the initial labs were a lab
error. He was transfused 2 units PRBC on 02/27/2024, and admitted to telemetry. Given his history of severe COPD with bibasilar fibrosis, SAMI on CPAP and chronic hypoxic respiratory failure, pulmonary service now consulted for additional
management/recommendations. Of note he does normally follow with pulmonology at [facility].
Chronic conditions MINER ASSISTANT: History of severe COPD on 6 L/min chronically, sleep apnea on CPAP, aortic stenosis, hyperlipidemia, chronic diastolic heart failure, paroxysmal A-fib/atypical A-flutter s/p multiple cardioversions + ablation (09/2018 +
10/2013) on Xarelto, hypertension, history of PFO, RBBB, iron deficiency anemia, and former tobacco use
Impression:
#Symptomatic anemia
#Acute anemia with suspected upper GI bleed with melena
#Reported history of severe COPD/emphysema on home O2 at 4-6 L/min on Trelegy at home not currently in an acute exacerbation
#Chronic hypoxic respiratory failure on 6 L/min
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
#Chronic HFpEF with stage III diastolic dysfunction
#Valvular heart disease with moderate aortic stenosis with peak/mean gradients across aVF 45/26 mmHg, mild AI, and trace TR via TTE from 06/01/2023
#Former tobacco use
#Paroxysmal A-fib on Xarelto
#SAMI on CPAP
#Hypertension
#History of PFO
#History of iron deficiency anemia
Plan:
- His CXR from 02/27/2024 is reported as no acute abnormalities and it does look relatively similar to prior CXR from 02/13/2022, however there is some blunting seen at the bilateral costophrenic angles. Will need to correlate clinically for
high-output heart failure in the setting of acute anemia; of note he does have a history of chronic diastolic heart failure with stage III diastolic dysfunction and valvular heart disease
- It is encouraging that he is back down to his baseline home O2 dose --> as of today he is on 4L/min
- He is at intermediate�high risk for a low risk procedure; his pulmonary status is optimized for endoscopy given that he is not wheezing, cough is at baseline, he is on his home dose of oxygen and denies SOB at rest
- Given that I hear faint expiratory wheezing on 02/29/2024 and given his severe COPD, I started him on systemic steroids to help prevent any periprocedural bronchospasm for today's EGD
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
stable to advance diet and restart Xarelto tonight
- Takes Trelegy at home so continue with Symbicort + Spiriva with as needed albuterol while hospitalized
- Continue with Daliresp
- Large bore IV x 2
- PPI IV BID
- s/p EGD today showing gastric antral vascular ectasia without bleeding, treated with APC
- Continue to trend H&H with serial CBC and transfuse to keep Hb >7g/dL
- He did receive 2 units PRBC on 02/27/2024 with inappropriate rise in Hb from 6 to 7.3; Hb 6.9 this AM (03/01/2024) and received 1 U PRBC
- Hold antiplatelet/anticoagulants until cleared otherwise by GI (he does take Xarelto at home for A-fib) --> GI ok for pt to resume xarelto tonight if Hb remains stable and tolerating diet
- Maintain SpO2 88-95% with supplemental O2 and wean down as tolerated
- Incentive spirometer q1hr while awake
- Replete electrolytes with K>4, Mg>2
- Maintain euglycemia with goal BG >100 and <180
- prn nebulized bronchodilators
- DVT ppx: SCDs for now; continue to hold xarelto until we know that Hb is stable for >8-12 hours and he is tolerating diet
Pulmonary service will continue to briefly follow along. Once he is discharged he will need to follow-up with his sales review clerk at [facility].
All imaging was personally reviewed.
Data:
CXR 02/27/2024: Chronic obstructive pulmonary disease with interstitial fibrosis but no superimposed acute abnormalities
Total time spent today was 36 minutes for this encounter. Time includes reviewing laboratory test/imaging results, reviewing pertinent medical records, obtaining and reviewing medical history, performing an appropriate exam, ordering medications,
tests and procedures. Time also includes documentation of this encounter, coordinating patient care and communicating with other healthcare professionals. Total time does not include separately billed tests performed on this date of service.
Subjective Data
-
Date of Service:
Date of Service: March 01, 2024
Chief Complaint: Pulmonary Follow Up
Subjective:
Patient seen and evaluated today at bedside. Going for EGD this morning which was done, showing gastric antral vascular ectasia without bleeding that was treated with APC. Otherwise normal duodenum and normal esophagus. He is on 4 L/min, had dark
stool yesterday. Hb this morning is 6.9 and he received 1 unit PRBC this morning. Currently denies GRIGSBY, shortness of breath, nausea, fevers or chills.
Review of Systems
General: Other (Negative unless mentioned above)
Objective Data
Data Reviewed
Vital Signs / I&O / Oxygen:
Vital Signs
Temp Pulse Resp BP Pulse Ox
97.6 F 62 18 128/59 97
03/01/24 08:18 03/01/24 08:18 03/01/24 08:18 03/01/24 08:18 03/01/24 08:18
Intake and Output
02/29/24 03/01/24 03/02/24
06:59 06:59 06:59
Intake Total 1320 / 1320 1430 / 1430 0 / 0
Balance 1320 / 1320 1430 / 1430 0 / 0
SaO2 97
Nasal Cannula flow liters per 4
minute
Physical Exam
General: Respiratory Distress (negative), Comfortable, Chills (negative) and Sweats (negative)
HEENT: Normocephalic and Anicteric
Cardiovascular: S1-S2, Rub (negative) and Peripheral Edema (+1 lower extremity edema bilaterally)
Respiratory: Wheeze (Faint expiratory wheezing heard in the lower-mid lung ellison bilaterally), Crackles (Bibasilar (L>R)), Rhonchi (negative), Accessory Resp Muscle Use (negative), Stridor (negative) and Other (Grossly diminished breath sounds
bilaterally)
GI: Soft, Distended (Abdominal obesity), Non Tender and Normal Bowel Sounds
Neurology: AO x 3 and Tremors (negative)
Skin: Warm, Dry, Rash (Chronic venous stasis dermatitis changes seen bilaterally in the lower extremities) and Other (Severe dry skin seen mainly in the left lower extremity around his daniels)
Labs/Micro/Reports
Lab Data
03/01/24 06:31
03/01/24 06:31
Laboratory Results
03/01/24
06:31
PT 14.7 H
INR 1.09
--- NOTE | 2024-03-01 11:14 | W.PN.UPDATE ---
Update Note
Progress Note Update
EGD done
Gastric antral vascular ectasia, non-bleeding, mild- cauterized w APC
Exam otherwise normal
REC:
Clears
Follow Hgb after PRBC
If stable, advance diet ane restart xarelto
--- NOTE | 2024-03-01 12:06 | CM ---
network account manager reviewed patient's chart and met with patient and patient's at bedside, patient lives with spouse in a [facility] home, patient is independent with adl's and ambulation, patient reports that he has a trilogy at home that he
purchased himself, patient also has a CPAP machine but he does not remember the name of the equipment company. Kelechi reports that he is independent with adl's and ambulation, patient declines the need for visiting nurses at discharge.
PCP: Lara Olsen
Pharmacy: [facility]
Plan: Home when stable no needs. Patient states that he plans on returning to home with and will use his trilogy as before at home. Patient uses his CPAP at night.
--- NOTE | 2024-03-01 12:33 | W.PN.HOSP.TC ---
Today's Communication/Plan
-
Assessment / Plan
Assessment / Plan
NAD, sitting in bedside chair
Scleral Anicteric, pale conjunctiva
MMM
No JVD
CTABL
RRR, S1/S2
Soft, NT, ND, BS+
Warm, Dry
AAOx3
Calm
Anemia symptomatic acute blood loss/acute on chronic anemia/normocytic, provide additional 1 unit as hemoglobin repeat 6.9
S/p 3 units PRBC
Monitor for blood loss from GI source
GI following,
Twice daily IV PPI
S/p EGD with evidence of GAVE syndrome, s/p cauterized with APC
Initiate CLD
If replete hemoglobin stable will initiate Xarelto see how he tolerates if hemoglobin remains stable on Xarelto without any evidence of bleeding we will plan to discharge home per GI probably in the next 24-48hrs
Metabolic acidosis s/p 1 amp bicarb with associated electrolyte abnormalities that was noted on initial labs
Likely lab error, labs improved without much intervention
Chronic ILD/COPD
Uses approximately 2 to 3 L of nasal cannula O2 at baseline
Continue Daliresp and MDIs
Sleep apnea
Continue CPAP prior to admission
P A-fib
Continue Dilt
Hold Xarelto
Monitor on telemetry
Anticipated Discharge: 24 - 48 hours
Subjective/Interval History
-
Date of Service: March 01, 2024
Seen and examined. No new complaints. No acute overnight events.
Hemoglobin 6.9 today
Objective Data
-
Labs:
Laboratory Results
03/01/24
06:31
WBC 11.9 H
Hgb 6.9 L*
Hct 22.2 L
Plt Count 214
PT 14.7 H
INR 1.09
Sodium 137
Potassium 4.4
Chloride 101
Carbon Dioxide 24
BUN 19
Creatinine 0.9
Glucose 148 H
Calcium 8.2 L
Vital Signs:
Vital Signs
Temp Pulse Resp BP Pulse Ox
97.9 F 69 22 130/65 95
03/01/24 11:59 03/01/24 11:59 03/01/24 11:59 03/01/24 11:59 03/01/24 11:59
I&O
02/29/24 03/01/24 03/02/24
06:59 06:59 06:59
Intake Total 1320 / 1320 1430 / 1430 250 / 250
Balance 1320 / 1320 1430 / 1430 250 / 250
[2024-03-01 13:19] LABS: Hemoglobin 7.3 g/dL (13.0-18.0)
[2024-03-01] MEDS: FERRLECIT 110 MG IV (15:52)
[2024-03-01 17:40] LABS: Glucose - Point of Care 149 mg/dl (70-99)
[2024-03-01 22:01] LABS: Glucose - Point of Care 139 mg/dl (70-99)
[2024-03-02 07:00] VITALS: BP 126/54
[2024-03-02 07:24] LABS: Hematocrit 27.5 % (39.0-52.0); Mean Corpuscular Hgb 29.2 pg (27.0-31.0); Mean Corpuscular Volume 91.4 fL (80.0-94.0); Mean Platelet Volume 10.4 fL (7.4-10.4); Platelet Count 229 10^3/uL (130-400); Red Blood Cell Count 3.01 10^6/uL (4.70-6.10); Red Cell Dist. Width 20.1 % (11.5-14.5); White Blood Cell Count 14.9 10^3/uL (4.8-10.8)
[2024-03-02 07:33] LABS: Blood Urea Nitrogen 17 mg/dl (9-20); Calcium 8.2 mg/dl (8.4-10.2); Carbon Dioxide 25 mmol/L (22-30); Chloride 103 mmol/L (98-107); Estimated Creatinine Clearance 78 ml/min; Glucose 102 mg/dl (70-99); Sodium 138 mmol/L (135-145); eGFR > 60.00
[2024-03-02 07:39] LABS: Potassium 4.6 mmol/L (3.5-5.1)
[2024-03-02 08:01] LABS: Glucose - Point of Care 121 mg/dl (70-99)
[2024-03-02 08:02] LABS: Hemoglobin 8.8 g/dL (13.0-18.0)
[2024-03-02] MEDS: DALIRESP 250 MCG PO (08:28)
[2024-03-02] MEDS: DELTASONE 40 MG PO (08:28)
[2024-03-02] MEDS: WELLBUTRIN XL (24 hour extended release) 150 MG PO (08:29)
[2024-03-02] MEDS: ZOLOFT 100 MG PO (08:29)
[2024-03-02] MEDS: PROTONIX IV 40 MG IV ×2 (08:29→20:53)
[2024-03-02] MEDS: NSS (PRESERVATIVE FREE) 10 ML IV ×2 (08:29→20:53)
[2024-03-02] MEDS: FLUSH (NSS) 2 FLUSH IV ×2 (08:29→14:39)
[2024-03-02] MEDS: SPIRIVA RESPIMAT 2.5 MCG 2 PUFF INH (08:37)
[2024-03-02] MEDS: SYMBICORT 80/4.5 MCG INHALER 2 PUFF INH ×2 (08:37→19:26)
--- NOTE | 2024-03-02 09:46 | W.PN.PUL3 ---
Today's Communication / Plan
-
Wheezing has stopped, he tolerated his EGD just fine ---> okay to stop steroids given he is now hyperglycemic
Continue with supplemental oxygen and titrate to SpO2 88-95%
Large bore IV x 2
PPI
Blood gas checked yesterday shows pH status WNL at 7.35, pCO2 46 � there was no need for BiPAP after endoscopy
Trend H&H and transfuse to keep Hb >7 g/dL
Resuming Xarelto tonight
Continue Daliresp, Spiriva + Symbicort
As needed albuterol
Continue with CPAP with sleep (lowering pressure from 15 to [id number] as he says that the pressure is currently too high)
No additional recommendations at this time. Pulmonary service will now sign off. Outpatient follow-up with his school bus aide at [facility] (Dr. Gore). Please re-consult if there are any additional questions/concerns, or if patient's respiratory
status deteriorates.
Assessment
-
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
cardioversions and cardiac ablation (10/2013 + 09/2018) on Xarelto, history of PFO, hypertension, iron deficiency anemia and former tobacco use disorder who presents with shortness of breath. He told triage that he feels like his 'lungs are filling
up.' He has been having 2 weeks of dark stools with nausea, with no vomiting or diarrhea. Having poor PO intake. No abdominal pain. Also lightheaded and dizzy. Denies NSAID use. Had been worked up previously in 2021 for melena with an
EGD/colonoscopy with capsule and was reportedly negative. Initial vitals in the ER showed he was afebrile to 98.2 �F, pulse rate 76, breathing at 24 breaths/min, BP 112/55 and saturating 96% on 6 L/min. Initial labs showed mild leukocytosis of
12.8, anemia to 6, potassium 2.3, serum bicarbonate level 10, glucose 67, calcium 5.5, albumin 2.2. Of note his repeat labs showed normal bicarbonate level and potassium 4.4 despite only getting 40mEq KCl, so unclear if the initial labs were a lab
error. He was transfused 2 units PRBC on 02/27/2024, and admitted to telemetry. Given his history of severe COPD with bibasilar fibrosis, SAMI on CPAP and chronic hypoxic respiratory failure, pulmonary service now consulted for additional
management/recommendations. Of note he does normally follow with pulmonology at [facility].
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
10/2013) on Xarelto, hypertension, history of PFO, RBBB, iron deficiency anemia, and former tobacco use
Impression:
#Symptomatic anemia
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
#Reported history of severe COPD/emphysema on home O2 at 4-6 L/min on Trelegy at home not currently in an acute exacerbation
#Chronic hypoxic respiratory failure on 6 L/min
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
#Chronic HFpEF with stage III diastolic dysfunction
#Valvular heart disease with moderate aortic stenosis with peak/mean gradients across aVF 45/26 mmHg, mild AI, and trace TR via TTE from 06/01/2023
#Former tobacco use
#Paroxysmal A-fib on Xarelto
#SAMI on CPAP
#Hypertension
#History of PFO
#History of iron deficiency anemia
Plan:
- His CXR from 02/27/2024 is reported as no acute abnormalities and it does look relatively similar to prior CXR from 02/13/2022, however there is some blunting seen at the bilateral costophrenic angles. Correlate clinically for high-output heart
failure in the setting of acute anemia; of note he does have a history of chronic diastolic heart failure with stage III diastolic dysfunction and valvular heart disease
- His oxygen requirements have actually improved now down to 3 L/min, and he usually uses 4 to 6 L/min at home --> check walking pulse oximetry prior to discharge
- Given that I heard faint expiratory wheezing on 02/29/2024 and given his severe COPD, I started him on systemic steroids to help prevent any periprocedural bronchospasm for yesterday's EGD
- Now that he has tolerated his EGD and wheezing has resolved, okay to stop steroids now
- EGD performed yesterday showed normal esophagus and normal examined duodenum, with gastric antral vascular ectasia without bleeding, treated with APC --> GI allowed patient to have clear liquid diet --> now on regular diet. Follow Hb after PRBC
transfusion; to restart Xarelto tonight
- Takes Trelegy at home so continue with Symbicort + Spiriva with as needed albuterol while hospitalized
- Continue with Daliresp
- Large bore IV x 2
- PPI IV BID
- s/p EGD yesterday showed gastric antral vascular ectasia without bleeding, treated with APC
- Continue to trend H&H with serial CBC and transfuse to keep Hb >7g/dL
- He did receive 2 units PRBC on 02/27/2024 with inappropriate rise in Hb from 6 to 7.3; Hb 6.9 yesterday AM and received 2 U PRBC on 03/01/2024; Hb 8.8 this AM
- Xarelto restarted tonight
- Maintain SpO2 88-95% with supplemental O2 and wean down as tolerated
-Continue with CPAP with sleep --> he refused it last night and says that the pressure is too high; he is willing to use it if the pressure is lowered a little bit, hence I will lower from 15 to [id number]
- Incentive spirometer q1hr while awake
- Replete electrolytes with K>4, Mg>2
- Maintain euglycemia with goal BG >100 and <180
- prn nebulized bronchodilators - not currently bronchospastic
- DVT ppx: Xarelto resumed tonight (he is tolerating diet and Hb is uptrending s/p 2 U PRBC yesterday)
No additional recommendations at this time. Pulmonary service will now sign off. Thank you for allowing us to be involved in the care of this patient. Please reconsult if there are any additional questions/concerns, or if patient's respiratory
status deteriorates. Once he is discharged he will need to follow-up with his school bus aide at [facility].
All imaging was personally reviewed.
Data:
CXR 02/27/2024: Chronic obstructive pulmonary disease with interstitial fibrosis but no superimposed acute abnormalities
Total time spent today was 38 minutes for this encounter. Time includes reviewing laboratory test/imaging results, reviewing pertinent medical records, obtaining and reviewing medical history, performing an appropriate exam, ordering medications,
tests and procedures. Time also includes documentation of this encounter, coordinating patient care and communicating with other healthcare professionals. Total time does not include separately billed tests performed on this date of service.
Subjective Data
-
Date of Service:
Date of Service: March 02, 2024
Chief Complaint: Pulmonary Follow Up
Subjective:
Patient seen earlier today � late note entry. Patient seen this morning, and he is doing well. Currently titrated down to 3 L/min and he is breathing comfortably. Refuses BiPAP overnight. He currently denies abdominal pain, nausea, vomiting,
fevers or chills. Hb was 8.8 this morning.
Review of Systems
General: Other (Negative unless mentioned above)
Objective Data
Data Reviewed
Vital Signs / I&O / Oxygen:
Vital Signs
Temp Pulse Resp BP Pulse Ox
97.7 F 64 20 126/54 96
03/02/24 07:00 03/02/24 07:00 03/02/24 07:00 03/02/24 07:00 03/02/24 07:00
Intake and Output
03/01/24 03/02/24 03/03/24
06:59 06:59 06:59
Intake Total 1430 / 1430 1920 / 1920
Output Total 200 / 200
Balance 1430 / 1430 1720 / 1720
SaO2 96
Nasal Cannula flow liters per 3
minute
Physical Exam
General: Respiratory Distress (negative), Comfortable, Chills (negative) and Sweats (negative)
HEENT: Normocephalic and Anicteric
Cardiovascular: S1-S2, Murmur (DEBO, heard best at RUSB, grade II/), Rub (negative) and Peripheral Edema (+1 lower extremity edema bilaterally)
Respiratory: Wheeze (negative), Crackles (Bibasilar), Rhonchi (negative), Accessory Resp Muscle Use (negative), Stridor (negative) and Other (Grossly diminished breath sounds bilaterally)
GI: Soft, Distended (Abdominal obesity), Non Tender and Normal Bowel Sounds
Neurology: AO x 3 and Tremors (negative)
Skin: Warm, Dry, Rash (Chronic venous stasis dermatitis changes seen bilaterally in the lower extremities) and Other (Severe dry skin seen mainly in the left lower extremity around his daniels)
Labs/Micro/Reports
Lab Data
03/02/24 06:38
03/02/24 06:38
--- NOTE | 2024-03-02 09:55 | W.PN.GI.CBS2 ---
Today's Communication / Plan
-
GAVE seen on EGD yesterday, cauterized w APC
OK to resume xarelto and monitor for recurrent bleeding
F/U with Dr Sweet in the office
Will sign off.
Assessment / Plan
-
Pt is a 78yo with hx afib on Xarelto, COPD( chronic O2 6Liter prior to admission), DAVID, cardiomyopathy, Cpap with sleep apnea,CHF, fem art stenosis, PFO, mild with onset of fatigue, shortness of breath, nausea and black stools for last few
weeks. On admission K 2.3, Co2 10, calcium 5.5 BUN normal with hbg 6, WBC 12.8. In review with patient he was noted with UTI in January. He last had lab work 01/15 with hbg 13.5 with stable K at that time. Sept hbg was 14. Pt otherwise denies
odynophagia, dysphagia, GERD, vomiting, wt loss, diarrhea, constipation, or red blood in stools. hx EGD [facility] 11/2021 for Melena- small HH, inflammation and glandularity in stomach, gastritis otherwise normal. bx H pylori neg. 12/2021 [facility]
colonoscopy hemorrhoids, diverticulosis, multiple polyps, bx TA and HP polyp rectum.Capsule 01/2022 normal no small intestinal bleed colon not entered. Pt denies NSAID, pepto use but does admits to recent wt loss supplement Lipozem.
-symptomatic anemia with acute drop from 13.5 in January to 6 on admission with iron deficiency
-melena prior to admission with hx melena with neg EGD in 2021
-increased shortness of breath with hx COPD and 6 liter O2 prior to admission -- follows with Dr. Gore [facility]([phone])
-metabolic acidosis on admission now resolved ? lab error
-severe hypokalemia/hypocalcemia/hypoglycemia on admission improving
-recent antibiotic use for UTI
-recent start of Lipozem for wt loss
-PAF on Xarelto prior to admission
-leukocytosis
other med problems:
-cardiomyopathy
-sleep apnea with c-pap prior to admission
-CHF
-PFO
-mild
-prior ablation and CV
Subjective
Subjective
Date of Service: March 02, 2024
No BMs overnight. Tolerated diet
Objective
Data Reviewed
Laboratory Data:
Laboratory Results
03/02/24 06:38
03/02/24 06:38
Laboratory Results
PT 14.7 Sec (11.4-14.6) H 03/01/24 06:31
INR 1.09 03/01/24 06:31
Magnesium 2.0 mg/dl (1.6-2.3) 02/27/24 13:05
Total Bilirubin 0.2 mg/dl (0.2-1.3) 02/27/24 13:05
AST 14 U/L (17-59) L 02/27/24 13:05
ALT < 10 U/L (0-50) 02/27/24 13:05
Alkaline Phosphatase 53 U/L (38-126) 02/27/24 13:05
Vital Signs and I&O:
Vital Signs
Temp Pulse Resp BP Pulse Ox
97.7 F 64 20 126/54 96
03/02/24 07:00 03/02/24 07:00 03/02/24 07:00 03/02/24 07:00 03/02/24 07:00
I&O
03/01/24 03/02/24 03/03/24
06:59 06:59 06:59
Intake Total 1430 / 1430 1920 / 1920
Output Total 200 / 200
Balance 1430 / 1430 1720 / 1720
Physical Exam
Physical Exam
GI: Soft, Non Distended and Non Tender
[2024-03-02] MEDS: CARDIZEM CD 240 MG PO ×2 (10:20→20:53)
[2024-03-02 10:27] VITALS: BMI 34.9
--- NOTE | 2024-03-02 11:31 | W.PN.HOSP.TC ---
Today's Communication/Plan
-
Discharge dependent on CT brain findings and CBC/hemoglobin tomorrow morning after initiation of Xarelto tonight. If no further bleeding
Assessment / Plan
Assessment / Plan
NAD, sitting in bedside chair
Scleral Anicteric, pale conjunctiva, left pupil larger than right pupil, bilateral pupils are reactive to light the
MMM
No JVD
CTABL
RRR, S1/S2
Soft, NT, ND, BS+
Warm, Dry
AAOx3
Calm
Anemia symptomatic acute blood loss/acute on chronic anemia/normocytic, provide additional 1 unit as hemoglobin repeat 6.9
S/p 3 units PRBC
Monitor for blood loss from GI source
GI following,
Twice daily IV PPI
S/p EGD with evidence of GAVE syndrome, s/p cauterized with APC
Advance diet as tolerated
Resume Xarelto tonight, repeat H&H in the a.m.
Unequal pupils
-Stat CT brain ordered
Metabolic acidosis s/p 1 amp bicarb with associated electrolyte abnormalities that was noted on initial labs
Likely lab error, labs improved without much intervention
Chronic ILD/COPD
Uses approximately 2 to 3 L of nasal cannula O2 at baseline
Continue Daliresp and MDIs
Sleep apnea
Continue CPAP prior to admission
P A-fib
Continue Dilt
Hold Xarelto
Monitor on telemetry
Anticipated Discharge: 24 - 48 hours
Subjective/Interval History
-
Date of Service: March 02, 2024
Seen and examined. No new complaints. No acute overnight events
No further bleeding noted
Noted unequal pupils left larger than right. He was not aware of this previously. I did assess this the left pupil is not blown and does react to light. Will send him for stat CT brain
Objective Data
-
Labs:
Laboratory Results
03/02/24
06:38
WBC 14.9 H
Hgb 8.8 L D
Hct 27.5 L
Plt Count 229
Sodium 138
Potassium 4.6
Chloride 103
Carbon Dioxide 25
BUN 17
Creatinine 0.9
Glucose 102 H
Calcium 8.2 L
Vital Signs:
Vital Signs
Temp Pulse Resp BP Pulse Ox
97.7 F 70 16 111/63 97
03/02/24 07:00 03/02/24 10:20 03/02/24 08:40 03/02/24 10:20 03/02/24 08:40
I&O
03/01/24 03/02/24 03/03/24
06:59 06:59 06:59
Intake Total 1430 / 1430 1919 / 192
Output Total 200 / 200
Balance 1430 / 1430 1720 / 1720
[2024-03-02 11:52] LABS: Glucose - Point of Care 179 mg/dl (70-99)
[2024-03-02] MEDS: FERRLECIT 110 MG IV (14:38)
[2024-03-02 15:00] VITALS: BP 122/53
[2024-03-02 16:47] LABS: Glucose - Point of Care 307 mg/dl (70-99)
[2024-03-02] MEDS: XARELTO 20 MG PO (17:52)
[2024-03-02 21:28] LABS: Glucose - Point of Care 179 mg/dl (70-99)
[2024-03-02 22:15] VITALS: PULSE 88
[2024-03-02 23:09] VITALS: BP 134/57
[2024-03-03 06:53] LABS: Hematocrit 27.3 % (39.0-52.0); Hemoglobin 8.7 g/dL (13.0-18.0); Mean Corp Hgb Conc. 31.9 g/dL (33.0-37.0); Mean Corpuscular Hgb 29.5 pg (27.0-31.0); Mean Corpuscular Volume 92.5 fL (80.0-94.0); Mean Platelet Volume 10.3 fL (7.4-10.4); Platelet Count 240 10^3/uL (130-400); Red Blood Cell Count 2.95 10^6/uL (4.70-6.10); Red Cell Dist. Width 19.8 % (11.5-14.5); White Blood Cell Count 15.4 10^3/uL (4.8-10.8)
[2024-03-03 07:21] LABS: Blood Urea Nitrogen 17 mg/dl (9-20); Calcium 8.4 mg/dl (8.4-10.2); Carbon Dioxide 27 mmol/L (22-30); Chloride 100 mmol/L (98-107); Estimated Creatinine Clearance 70 ml/min; Glucose 105 mg/dl (70-99); Potassium 3.9 mmol/L (3.5-5.1); Sodium 137 mmol/L (135-145); eGFR > 60.00
[2024-03-03 07:26] VITALS: BP 146/63
[2024-03-03 07:33] LABS: Glucose - Point of Care 106 mg/dl (70-99)
--- NOTE | 2024-03-03 08:45 | W.PN.HOSP.TC ---
Today's Communication/Plan
-
DC home
More than 30 minutes spent in discharge including
Final examination of the patient
Summarizing hospital stay
Instructions for continuing care to all relevant caregivers
Preparation of discharge records, prescriptions, and referral forms
Total time spent (in minutes): 33mins
Assessment / Plan
Assessment / Plan
NAD, sitting in bedside chair
Scleral Anicteric, pale conjunctiva, left pupil larger than right pupil, bilateral pupils are reactive to light the
MMM
No JVD
CTABL
RRR, S1/S2
Soft, NT, ND, BS+
Warm, Dry
AAOx3
Calm
Anemia symptomatic acute blood loss/acute on chronic anemia/normocytic, provide additional 1 unit as hemoglobin repeat 6.9
S/p 3 units PRBC
Monitor for blood loss from GI source
GI following,
Twice daily IV PPI, transition to po BID PPI
S/p EGD with evidence of GAVE syndrome, s/p cauterized with APC
Advance diet as tolerated
Continue Xarelto, no bleeding noted
Unequal pupils
-CT Brain without acute changes
Metabolic acidosis s/p 1 amp bicarb with associated electrolyte abnormalities that was noted on initial labs
Likely lab error, labs improved without much intervention
Chronic ILD/COPD
Uses approximately 2 to 3 L of nasal cannula O2 at baseline
Continue Daliresp and MDIs
Sleep apnea
Continue CPAP
P A-fib
Continue Dilt
Resumed Xarelto, tolerated well
Monitor on telemetry
Anticipated Discharge: Today
Subjective/Interval History
-
Date of Service: March 03, 2024
seen and examined. tolerated xarelto well overnight. no bleeding noted
Objective Data
-
Labs:
Laboratory Results
03/03/24
06:19
WBC 15.4 H
Hgb 8.7 L
Hct 27.3 L
Plt Count 240
Sodium 137
Potassium 3.9
Chloride 100
Carbon Dioxide 27
BUN 17
Creatinine 1.0
Glucose 105 H
Calcium 8.4
Vital Signs:
Vital Signs
Temp Pulse Resp BP Pulse Ox
98.4 F 73 18 146/63 94
03/03/24 07:26 03/03/24 07:26 03/03/24 07:26 03/03/24 07:26 03/02/24 23:09
I&O
03/02/24 03/03/24 03/04/24
06:59 06:59 06:59
Intake Total 0 / 0 480 / 480
Output Total 200 / 200
Balance 1720 / 1720 480 / 480
--- NOTE | 2024-03-03 08:51 | W.DCSUMMARY ---
Discharge Summary
Discharge Data
Date of Admission: 02/27/24
Date of Discharge: 03/03/24
-
Pending Results: No
Hospital Course
78-year-old with past medical history of iron deficiency anemia, diastolic heart failure, A-fib on Xarelto
Presented with black stools. Found to have a hemoglobin of 6 and required 3 units PRBC. Was evaluated by GI, recommended pulmonary consult for clearance which was provided and deemed acceptable risk for EGD that was completed and demonstrated GAVE
syndrome, s/p cautery with APC. Will need outpatient follow up with GI. Resume xarelto without any further evidence of bleeding and hemoglobin removed stable.
Was noted to have blood sugars greater than 200. However this was while on steroids. Will need continued outpatient follow-up. If persistently high will need to use be started on oral diabetics agent, should receive follow up with PCP. BG came
down appropriately through out the day without acute interventions
EGD
Impression: - Normal esophagus.
- Gastric antral vascular ectasia without bleeding.
Treated with argon plasma coagulation (APC).
- Normal examined duodenum.
- No specimens collected.
Head CT completed for reactive but unequal pupils
IMPRESSION:
There are no acute intracranial abnormalities.
There is moderate diffuse cortical atrophy with mild nonspecific white matter changes as described above.
Discharge Plan
-
Patient Disposition: Home with Home Care
Discharge Diagnosis/Procedures: GI Bleed
Condition: Good
Diet: Low Fat, Low Cholesterol, Low Sodium and No added salt
Activity Restrictions/Additional Instructions:
Presented with black stools. Found to have a hemoglobin of 6 and required 3 units PRBC. Was evaluated by GI, recommended pulmonary consult for clearance which was provided and deemed acceptable risk for EGD that was completed and demonstrated GAVE
syndrome, s/p cautery with APC. Will need outpatient follow up with GI. Resume xarelto without any further evidence of bleeding and hemoglobin removed stable.
Was noted to have blood sugars greater than 200. However this was while on steroids. Will need continued outpatient follow-up. If persistently high will need to use be started on oral diabetics agent, should receive follow up with PCP. BG came
down appropriately through out the day without acute interventions
EGD
Impression: - Normal esophagus.
- Gastric antral vascular ectasia without bleeding.
Treated with argon plasma coagulation (APC).
- Normal examined duodenum.
- No specimens collected.
Head CT completed for reactive but unequal pupils
IMPRESSION:
There are no acute intracranial abnormalities.
There is moderate diffuse cortical atrophy with mild nonspecific white matter changes as described above.
Referrals:
Lara Olsen CRNP [Family Provider] -
Damaris Sweet DO [Active] -
Prescriptions:
New
pantoprazole [Protonix] 40 mg tablet,delayed release (DR/EC)
40 mg PO BID Qty: 28 0RF
Continued
diltiazem HCl 240 MG capsule,extended release 24hr
240 mg PO BID Qty: 60 0RF
Xarelto 20 MG tablet
20 mg PO QPM Qty: 30 0RF
roflumilast [Daliresp] 500 MCG tablet
250 mcg PO DAILY
Trelegy Ellipta 100-62.5-25 mcg Blister With Device
1 inh INHALATION R DAILY
sertraline 100 mg Tablet
100 mg PO DAILY
bupropion HCl [Wellbutrin XL] 150 mg Tablet Extended Release 24 Hr
150 mg PO DAILY
Discharge Orders:
Discharge Patient (As Directed); Ordered 03/03/24
Ordered By: Sanjay Brizuela
Discharge Date and Time
Print Language: DUTCH
[2024-03-03] MEDS: SYMBICORT 80/4.5 MCG INHALER 2 PUFF INH (08:56)
[2024-03-03] MEDS: SPIRIVA RESPIMAT 2.5 MCG 2 PUFF INH (08:56)
[2024-03-03] MEDS: DALIRESP 250 MCG PO (09:30)
[2024-03-03] MEDS: CARDIZEM CD 240 MG PO (09:30)
[2024-03-03] MEDS: WELLBUTRIN XL (24 hour extended release) 150 MG PO (09:30)
[2024-03-03] MEDS: ZOLOFT 100 MG PO (09:30)
[2024-03-03] MEDS: PROTONIX IV 40 MG IV (09:31)
[2024-03-03] MEDS: NSS (PRESERVATIVE FREE) 10 ML IV (09:31)
[2024-03-03 09:45] LABS: Glycohemoglobin (HgbA1c) 5.1 % (4.0-5.6)
== END 2024-03-03 10:17 | disposition home or self-care (01) | DRG 812 ==
LOC: 3 WEST ACU 16:04
PROVIDERS: Emergency Medicine; Nurse Practitioner Adult Health; Physician Assistant; Registered Nurse; Specialist; ADMITTING PHYSICIAN Hospitalist; ATTENDING PHYSICIAN Hospitalist; CONSULT PHYSICIAN Internal Medicine; CONSULT PHYSICIAN Internal Medicine Critical Care Medicine; EMERGENCY PHYSICIAN Emergency Medicine; FAMILY PHYSICIAN Nurse Practitioner Family
PROC: 30233N1 Transfusion of Nonautologous Red Blood Cells into Peripheral Vein, Percutaneous Approach (ICD-10-PCS; 2024-02-27)
PROC: 0W3P8ZZ Control Bleeding in Gastrointestinal Tract, Via Natural or Artificial Opening Endoscopic (ICD-10-PCS; 2024-03-01)
DX: D64.9 Anemia, unspecified (principal); I50.32 Chronic diastolic (congestive) heart failure; E87.20 Acidosis, unspecified; D68.32 Hemorrhagic disorder due to extrinsic circulating anticoagulants; K92.2 Gastrointestinal hemorrhage, unspecified; I42.9 Cardiomyopathy, unspecified; E87.6 Hypokalemia; Z87.891 Personal history of nicotine dependence; I48.0 Paroxysmal atrial fibrillation; Z79.01 Long term (current) use of anticoagulants; Z99.81 Dependence on supplemental oxygen; J43.2 Centrilobular emphysema; I11.0 Hypertensive heart disease with heart failure
CPT/HCPCS: 70450; 71046; 80048; 80053; 81003; 82728; 82805; 82962; 83036; 83540; 83550; 83735; 83880; 84439; 84443; 85014; 85018; 85025; 85027; 85610; 86850; 86900; 86901; 86920; 93005; 94640; 94660; 97116; 97162; 97166; 99285; J2916; P9016

== ENCOUNTER 2024-11-01 20:48 | Inpatient (IN) | payer MEDICARE, SELFPAY ==
[2024-11-01 16:47] VITALS: BP 119/81
--- NOTE | 2024-11-01 17:33 | EDRN ---
Dr. Mi in room w/ pt at this time.
--- NOTE | 2024-11-01 17:37 | ED.GENMED ---
History of Present Illness
General
Chief Complaint: Breathing Problem
Source: patient
Exam Limitations: none
Time Seen by Provider: 11/01/24 17:29
History of Present Illness
History of Present Illness:
See MDM
Past History
Past History
ED Past Medical History: Arrthythmia, CHF and COPD
ED Past Surgical History: Cardiac (Cardiac ablation x2)
Social History
Tobacco: Former smoker
Alcohol: None
Drug: None
Personal:
Living: with family
Employment: Retired
Family History
Family History: Other (Noncontributory)
Phy Exam
Physical Exam
Physical Exam:
See MDM
Scores
Heart Failure Risk
Heart Failure Risk Score: Yes
History of Stroke or TIA: No
History of intubation for respiratory distress: No
Heart rate on ED arrival >/= 110: No
SaO2 <90% on arrival on room air: Yes
HR >/=110 during 3min walk test (or too ill to perform test): Yes
ECG has acute ischemic changes: No
Urea >/=12mmol/L (BUN 33.6mg/dL): No
Serum CO2>/=35mmol/L: No
Troponin I or T elevated to CA Level (0.4mg/dL): No
NT-proBNP >/=5,000ng/L (5,000pg/ml): No
HF Risk Score: 3
Admission Status: HIGH RISK 15.9% Consider SNF treatment or admission to hospital
Course
Orders/Labs/Results
Orders:
Orders
11/01/24 16:53
Electrocardiogram (*1) Urgent
Reason for Study: Shortness of Breath
EKG- Treatment ONCE
11/01/24 17:35
Dexamethasone Sod Phosphate [Decadron] 10 mg IV NOW STA
Furosemide [Lasix] 40 mg IV NOW STA
Ipratropium/Albuterol Sulfate [Duoneb] 3 ml INH R NOW STA
11/01/24 17:36
CR Chest Portable - 1 View Urgent
Comment:
Reason For Exam: SOB
Reason Study Needs to be Portable: Patient Unstable
11/01/24 17:51
COVID-19 Antigen Urgent
Source: Nasal Swab
Complete Blood Count/With Diff Urgent
Comprehensive Metabolic Panel Urgent
NT-proBNP Urgent
Troponin I Urgent
Influenza A+B Rapid Molecular Urgent
JOSLYN Source: Nasal Swab
Specimen Description:
Abnormal Lab Results
11/01/24
17:51
RBC 3.65 L 10^6/uL
(4.70-6.10)
Hgb 10.0 L g/dL
(13.0-18.0)
Hct 31.7 L %
(39.0-52.0)
MCHC 31.5 L g/dL
(33.0-37.0)
RDW 15.6 H %
(11.5-14.5)
Absolute Monos (auto) 0.9 H 10^3/uL
(0.1-0.6)
Monocytes % 10.3 H %
(1.7-9.3)
BUN 23 H mg/dl
(9-20)
Glucose 134 H mg/dl
(70-99)
11/01/24 17:51
11/01/24 17:51
Vital Signs
Initial and Last Documented VS:
Initial Vital Signs
Temp Pulse Resp BP Pulse Ox
98.2 F 112 22 119/81 92
11/01/24 16:47 11/01/24 16:47 11/01/24 16:47 11/01/24 16:47 11/01/24 16:47
Last Documented Vital Signs
Temp Pulse Resp BP Pulse Ox
97.0 F 88 26 143/74 94
11/01/24 19:28 11/01/24 19:28 11/01/24 19:28 11/01/24 19:38 11/01/24 19:38
MDM/Problems Addressed
Differential Diagnosis Includes:
Note:
CHIEF COMPLAINT(S)
Shortness of breath.
HISTORY OF PRESENT ILLNESS
The patient is an 79-year-old male with a history of chronic obstructive pulmonary disease (COPD) and congestive heart failure (CHF), presenting with shortness of breath. The symptoms began approximately a week ago, necessitating a call to emergency
services on Monday. The patient was then transported to [facility], where a diagnosis of CHF was given, and he was treated by removal of seven liters of fluid through diuresis. Despite initial relief, the patient continued to experience
breathing difficulties. Today, he was unable to walk even short distances without significant shortness of breath, requiring his spouse to retrieve a wheelchair for transport into the facility.
He is noted to have bilateral wheezing upon auscultation, which was not addressed with a breathing treatment during the patients previous hospital visit. The patient denies current use of blood thinners for his heart condition, with the last usage
occurring four to five months ago due to a history of internal bleeding. The patient is scheduled for a CT scan related to a planned Watchman procedure, but he remains concerned about the frequent electrical cardioversions perceived at the
cardiology department in [place].
ADDITIONAL HISTORY OBTAINED FROM SOURCES OTHER THAN THE PATIENT
According to the patients spouse, the patient has been experiencing ongoing breathing difficulties and inability to perform usual activities such as walking without shortness of breath.
CHRONIC MEDICAL CONDITIONS SIGNIFICANTLY AFFECTING CARE
- Chronic Obstructive Pulmonary Disease (COPD)
- Congestive Heart Failure (CHF)
SOCIAL HISTORY
The patient moved to [place] through his spouse and mentions a preference for local facilities due to proximity.
REVIEW OF SYSTEMS
- Respiratory: Shortness of breath, wheezing.
- Cardiovascular: History of congestive heart failure.
PHYSICAL EXAM
General: Mild distress with mild tachypnea and conversational dyspnea
Skin: Warm, dry.
Head: Normocephalic, atraumatic
Neck: Appears supple, trachea midline.
Eyes, Ears, Nose, Mouth, and Throat: Oral mucosa moist.
Cardiovascular: No signs of cyanosis
Respiratory: Tachypnea and conversational dyspnea. Expiratory wheezing bilaterally with prolonged expiratory phase
Abdomen: Non-distended
Musculoskeletal: +1 pitting edema bilateral lower extremities
Neurological: No focal neurological deficit observed.
Psychiatric: Cooperative, appropriate mood and affect.
PLAN
1. Administered a bronchodilator and corticosteroids to manage the COPD exacerbation and wheezing.
2. Diuretics (Lasix) prescribed to address fluid overload associated with CHF.
3. Ordered chest X-ray, blood work, and ECG to assess current cardiac status and guide further treatment.
4. Advised against discharge based on the current assessment of the patients condition.
DIFFERENTIAL DIAGNOSIS
The Differential Diagnosis includes, in no particular order and is not limited to:
1. COPD exacerbation
2. Congestive Heart Failure (CHF)
3. Pneumonia
4. Pulmonary Embolism
5. Asthma exacerbation
6. Acute Respiratory Distress Syndrome (ARDS)
7. Acute Myocardial Infarction
8. Pleural Effusion
9. Anemia
10. Pulmonary Edema
My independent EKG interpretation is:
- Time of EKG: *Not Provided*
- Rhythm: Sinus rhythm
- Heart Rate: 89 beats per minute
- ID Interval: *Not Provided*
- QRS Duration: *Not Provided*
- QT Interval: *Not Provided*
- [place]: Normal axis
- Abnormalities: Mild ectopy noted with premature atrial complexes
- ST Segment: No ST elevation or depression noted
- T Wave: *Not Provided*
- Additional Arrhythmias: *None Noted*
SUMMARY OF ENCOUNTER
The patient, an 79-year-old male with a history of congestive heart failure (CHF) and chronic obstructive pulmonary disease (COPD), presented to the emergency department with shortness of breath. Initial management included a bronchodilator and
corticosteroids for COPD exacerbation, as well as diuretics for fluid overload due to CHF. Despite initial treatment, a chest x-ray indicated persistent fluid. The decision was made to admit the patient overnight for further management of suspected
CHF exacerbation.
DISPOSITION
Admit.
ASSESSMENT
The patient is experiencing an exacerbation of congestive heart failure, with underlying chronic obstructive pulmonary disease contributing to respiratory distress.
PLAN
The patient will be admitted to the hospitalist service for ongoing management and observation of CHF exacerbation and underlying COPD. Continued treatment will include diuretics and bronchodilators as needed, with the aim of stabilizing the patient
over the coming days.
INDEPENDENT REVIEW OF LABS AND INTERPRETATION OF TESTS
My independent interpretation of the chest x-ray suggests the presence of residual fluid, indicative of CHF exacerbation.
MEDICATION RECONCILIATION
Administered Medications: Bronchodilator, corticosteroids, and diuretics (furosemide).
MEDICAL DECISION MAKING
Chronic conditions affecting care: Congestive heart failure, Chronic obstructive pulmonary disease.
-DDx list: COPD exacerbation, Congestive Heart Failure (CHF).
-Data:
Category 1
The chest x-ray was reviewed, revealing residual fluid.
The patients past medical history was obtained to guide management.
Category 2
Clinical information was obtained from an independent historian: the patients spouse confirmed ongoing symptoms.
DIAGNOSIS
Congestive Heart Failure Exacerbation (I50.9)
Chronic Obstructive Pulmonary Disease, unspecified (J44.9)
*Pulse Oximetry
SaO2: 92
Nasal Cannula flow liters per minute: 6
Patient hypoxic: no
*Critical Care Note
Total Time (30-74mins, 75-104mins- exclusive of procedures): 33 min
comment:
The high probability of a clinically significant, sudden or life threatening deterioration of the pulmonary system(s) required my full and direct attention, intervention and personal management. The aggregate critical care time was 33 minutes. This
time is in addition to time spent performing reported procedures but includes the following:
[x] Data Review and interpretation
[x] Patient assessment and monitoring of vital signs
[x] Documentation
[x] Medication orders and management
ED Attending Note
-
Portions of this chart may have been created with voice recognition software.� Occasional wrong word or��sound alike� substitutions may have occurred due to the inherent limitations of voice recognition software.
Discharge Plan
Departure
Patient Disposition: Admit
Date of Disposition: 11/01/24
Time of Disposition: 19:34
Admit to: Telemetry
Presentation/result/management discussed w/ accepting MD/DO: Hospitalist
Discharge Problem:
Interstitial edema, MEDEROS (dyspnea on exertion)
Prescriptions:
No Action
Trelegy Ellipta 100-62.5-25 mcg Blister With Device
1 inh INHALATION R DAILY
sertraline 100 mg Tablet
100 mg PO DAILY
roflumilast [Daliresp] 250 mcg Tablet
250 mcg PO DAILY
pantoprazole [Protonix] 40 mg tablet,delayed release (DR/EC)
40 mg PO DAILY
albuterol sulfate 2.5 mg /3 mL (0.083 %) Solution For Nebulization
2.5 mg INHALATION R Q6HPRN PRN (Reason: sob)
benzonatate 200 mg Capsule
200 mg PO DAILY
cyanocobalamin (vitamin B-12) 1,000 mcg Tablet
1,000 mcg PO DAILY
ferrous sulfate 325 mg (65 mg iron) Tablet
325 mg PO QPM
bupropion HCl [Wellbutrin XL] 150 mg Tablet Extended Release 24 Hr
150 mg PO DAILY
guaifenesin [Mucinex] 1,200 mg Tablet Extended Release 12hr
1,200 mg PO DAILY
Referrals:
Lara Olsen CRNP [Family Provider, Family Practice]
Interventions
Interventions:
*Risk Screen - Suicide Last Done: 11/01/24 17:45
*General Assessment Last Done: 11/01/24 17:45
*Neglect/Abuse Screening Last Done: 11/01/24 17:45
*ED- Fall Risk Assessment Last Done: 11/01/24 17:45
*ED COVID-19 Vaccine History Last Done: 11/01/24 17:45
ED- Cardiac Assessment Last Done: 11/01/24 19:28
ED- Pulmonary Assessment Last Done: 11/01/24 19:28
Discharge Date and Time
Print Language: DANISH
[2024-11-01 17:41] VITALS: BP 133/83
[2024-11-01] MEDS: DUONEB 3 ML INH (17:55)
[2024-11-01] MEDS: LASIX 40 MG IV (17:55)
--- NOTE | 2024-11-01 17:55 | EDRN ---
Portable CXR done at stretcher side.
[2024-11-01] MEDS: DECADRON 10 MG IV (17:56)
[2024-11-01 17:59] LABS: Hematocrit 31.7 % (39.0-52.0); Hemoglobin 10.0 g/dL (13.0-18.0); Mean Corp Hgb Conc. 31.5 g/dL (33.0-37.0); Mean Corpuscular Volume 86.8 fL (80.0-94.0); Nucleated Red Blood Cells % 0 % (-); Platelet Count 248 10^3/uL (130-400); Red Cell Dist. Width 15.6 % (11.5-14.5)
[2024-11-01 18:00] VITALS: BP 140/43
[2024-11-01 18:22] VITALS: BMI 35.8
[2024-11-01 18:25] LABS: COVID-19 Antigen Negative (Negative)
[2024-11-01 18:26] LABS: Troponin I 0.020 ng/ml
[2024-11-01 18:27] LABS: ALT (SGPT) 22 U/L (0-50); AST (SGOT) 24 U/L (17-59); Albumin 4.1 g/dl (3.5-5.0); Alkaline Phosphatase 86 U/L (38-126); Blood Urea Nitrogen 23 mg/dl (9-20); Calcium 8.7 mg/dl (8.4-10.2); Carbon Dioxide 27 mmol/L (22-30); Chloride 106 mmol/L (98-107); Estimated Creatinine Clearance 70 ml/min; Glucose 134 mg/dl (70-99); Potassium 4.7 mmol/L (3.5-5.1); Sodium 139 mmol/L (135-145); Total Protein 7.4 g/dl (6.3-8.2); eGFR > 60.00
[2024-11-01 19:38] VITALS: BP 143/74
--- NOTE | 2024-11-01 20:03 | HPS.HSE ---
Addendum entered and electronically signed by Rohit Quiroz MD 11/01/24 21:15:
This is an addendum to H&P written by Jacque Aparicio on 11/01/2024. �Patient seen and examined independently with SHIRT BANDER.
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 �Recently
admitted at [facility] this past week for acute CHF exacerbation and was diuresed with 7 pound weight loss. �Supposed to be on 4 L but using 6 L oxygen.
He was recently admitted at [facility] in August for GI bleeding on Xarelto and Xarelto was stopped. �He got blood transfusions.
Vital signs unremarkable. �Patient saturating 95% on 6 L. �Bilateral wheezing on examination
Labs show stable anemia of 10. �Cardiac BNP of 837. �Troponin 0.02.
Chest x-ray shows mild diffuse interstitial prominence which may reflect pulmonary interstitial edema and or pneumonitis.
Patient with dyspnea secondary to likely COPD exacerbation/ILD flare less likely acute CHF exacerbation. �He was given DuoNeb, dexamethasone, 40 IV Lasix in ER. Continue Duonebs, Dexamethasone.�
Original Note:
Family Physician
-
Family Physician: Lara Olsen
Chief Complaint
-
sob dyspnea
History of Present Illness
79-year-old male complaining of shortness of breath x 1 week he was treated at [facility] on 10/28/2024 for diagnosis of CHF. He reports being diuresed 7 L of fluid. Despite initial relief he continued to experience shortness of
breath with inability to walk short distances. He also reports he had wheezing which he felt was not addressed at the previous hospital. He reports he has had history of multiple cardioversions he is scheduled for a CT to be performed in order to
have a planned Watchman procedure.
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
aortic stenosis, PFO
Medical History
Past Medical History
Past Medical History: Reports Other
Additional Past Medical History:
Iron deficiency anemia
Cardiomyopathy
Chronic diastolic heart failure
Paroxysmal A-fib/a flutter
Severe COPD
Chronic hypoxic respiratory failure on chronic 4 L nasal cannula is using 6 L
ILD
Obstructive sleep apnea CPAP setting 12
Past Surgical History: Reports Other
Additional Past Surgical History:
Hernia repair
Right knee replacement
Left knee replacement
Cardioversion times 03/24/2013, 10/02/2018
Cardiac ablation
Social History
Tobacco: Former Smoker
Alcohol: None
Drug: None
Personal:
Living: With Family
Family History
Family History: Not pertinent
Allergies / Home Medications
Allergies reflects when Allergies were last updated in [employer].
Home Medications with original date entered in [employer]
Allergy/Medication List:
Allergies
Allergy/AdvReac Type Severity Reaction Status Date / Time
No Known Allergies Allergy Verified 02/27/24 13:02
Home Medications
fluticasone fur. 100 mcg-umeclid 62.5 mcg-vilant 25 mcg inhalat.powder (Trelegy Ellipta) 1 inh inhalation R DAILY Lung/Breathing Issues 08/02/23
sertraline 100 mg tablet 100 mg PO DAILY depression/anxiety 02/27/24
albuterol sulfate 2.5 mg/3 mL (0.083 %) solution for nebulization 2.5 mg inhalation R Q6HPRN PRN sob 11/01/24
benzonatate 200 mg capsule 200 mg PO DAILY 11/01/24
bupropion HCl 150 mg 24 hr tablet, extended release (Wellbutrin XL) 150 mg PO DAILY 11/01/24
cyanocobalamin (vitamin B-12) 1,000 mcg tablet 1,000 mcg PO DAILY 11/01/24
ferrous sulfate 325 mg (65 mg iron) tablet 325 mg PO QPM 11/01/24
guaifenesin 1,200 mg tablet, extended release 12 hr (Mucinex) 1,200 mg PO DAILY 11/01/24
pantoprazole 40 mg tablet,delayed release (Protonix) 40 mg PO DAILY 11/01/24
roflumilast 250 mcg tablet (Daliresp) 250 mcg PO DAILY 11/01/24
Review of Systems
-
History Source: Patient and Family ( at bedside)
A 12 point ROS was completed and negative except as noted: Yes
Constitutional: Denies Fever, Fatigue or Chills
EENT: Denies Sore Throat or Runny Nose
Respiratory: Reports Trouble Breathing and Other (Expiratory wheezing); Denies Cough
Cardiac: Denies Chest Pain, Diaphoresis, Palpitations or Syncope
Abdomen/GI: Denies Abdominal Pain, Nausea, Vomiting, Diarrhea, Constipated or Bloody Stools
: Denies Dysuria, Frequency, Flank Pain or Incontinence
Musculoskeletal: Denies Joint Pain or Edema
Skin: Denies Itching or Rash
Neurological: Denies Dizzy or Headache
Endocrine: Reports No Symptoms
Psych: Reports Calm
Physical Exam
Vital Signs
Vital Signs
Temp Pulse Resp BP Pulse Ox
97.0 F 88 26 143/74 94
11/01/24 19:28 11/01/24 19:28 11/01/24 19:28 11/01/24 19:38 11/01/24 19:38
Physical Exam
General: Conversant and Other (Shortness of breath with orthopnea); No Pain, Fever or Chills
HEENT: NormoCephalic, Anicteric, Moist mucous membranes, PERRLA, [place] Conjunctivae, No Ptosis and Oxygen (6 L nasal cannula)
Respiratory: Wheezes (Expiratory throughout right lung field); No Rales or Rhonchi
Cardiac: S1/S2 and Regular Rhythm; No Murmur, Rub, Gallop or Peripheral Edema
GI: Soft, Non Tender, Non Distended, Normal Bowel Sounds and No Hepatosplenomegaly
Rectal: Deferred by Provider
Genito-urinary: Deferred by me
Musculoskeletal: No Clubbing, No Cyanosis and No Edema
Skin: Warm, Dry and Other (PVD purpleish brown pigment changes bilateral lower legs no edema); No Rash
Neuro: AO x 3, No Motor Deficits, Nonfocal/grossly intact, Cranial Nerves Intact and No Sensory Deficits; No Slurred Speech, Facial Droop, Tremors or Sedated
Psych: Calm
Laboratory Results
-
11/01/24 17:51
11/01/24 17:51
Laboratory Results
Total Bilirubin 0.8 mg/dl (0.2-1.3) 11/01/24 17:51
AST 24 U/L (17-59) 11/01/24 17:51
ALT 22 U/L (0-50) 11/01/24 17:51
Alkaline Phosphatase 86 U/L (38-126) 11/01/24 17:51
Troponin I 0.020 ng/ml 11/01/24 17:51
Impression/Plan
-
Impression/plan:
Admit to telemetry
#Acute on chronic COPD/fibrosis exacerbation
#history of severe COPD/emphysema on home O2 6 L supposed to be on 4 L
#Chronic hypoxic respiratory failure on 6 L/min-patient reports his dyspnea on 4 L
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
-Patient follows with land planner at [facility] Dr. Melchor
- DuoNebs scheduled and as needed
- Continue Trelegy Ellipta or equivalent, continue Daliresp
- Decadron 10 mg given in ER continue Decadron 4 mg every 8 hours
- Consult pulmonary
#Recent acute on chronic diastolic stage III heart failure 10/28/2024
- Patient reports 7 pound weight loss due to 37 pounds at [facility] patient is currently 234.7 pounds with total weight loss 10 pounds in the last 5 days
94% 6 L nasal cannula
I/O, daily weights
CXR: 1. Mild diffuse interstitial prominence may reflect pulmonary interstitial edema
and/or pneumonitis. Cannot rule out underlying chronic interstitial lung disease.
2. Superimposed mild left basilar atelectasis and/or pneumonia
#Valvular heart disease with moderate aortic stenosis with peak/mean gradients across aVF 45/26 mmHg, mild AI, and trace TR via TTE from 06/01/2023
#History PFO
#Recent GI bleed on Xarelto August 2024 at [facility]-Patient reports received blood at that time
#Acute on chronic anemia�normocytic
#History iron deficiency anemia
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
Hgb 10
- Continue Protonix, B12, ferrous sulfate
#History former smoker 51-year 1.5 to 2 pack/day quit 11 years ago
#Sleep apnea/CPAP
CPAP setting 12
#Paroxysmal A-fib
Status post multiple cardioversions and cardiac ablation 11/02/2013, 10/02/2018
No current Xarelto due to GI bleed in August 2024
-Patient follows with [facility] cardiology is due for consideration of Watchman device
#Depression/anxiety
Continue Wellbutrin 150 mg daily, Zoloft
DVT prophylaxis
SCDs
Full code
[2024-11-01 21:20] VITALS: BP 129/92
[2024-11-01 23:05] VITALS: BMI 35.9
[2024-11-01 23:06] VITALS: BP 157/79
[2024-11-01 23:38] VITALS: BMI 35.9
--- NOTE | 2024-11-01 23:47 | PTCARENOTE ---
pt is aaox3, no c/o pain. pt is on 5l O2 baseline 4-6L. he is MEDEROS/res, tachypneic, orthopneic. lungs w/ expiratory wheezes throughout. pt wears cpap at hs. pt oriented to room w/ call blackwell in reach.
[2024-11-02] VITALS (9 sets, daily range): BP systolic 118–179; BP diastolic 61–92; PULSE 71–81; O2SAT 99; BMI 35.9
[2024-11-02] MEDS: DECADRON 4 MG IV ×3 (02:45→17:12)
[2024-11-02] MEDS: DUONEB 3 ML INH (07:45)
[2024-11-02] MEDS: SYMBICORT 80/4.5 MCG INHALER 2 PUFF INH ×2 (07:45→19:55)
[2024-11-02] MEDS: SPIRIVA RESPIMAT 2.5 MCG 2 PUFF INH (07:46)
[2024-11-02] MEDS: MUCINEX 1200 MG PO (08:35)
[2024-11-02] MEDS: VITAMIN B-12 1000 MCG PO (08:35)
[2024-11-02] MEDS: PROTONIX 40 MG PO (08:35)
[2024-11-02] MEDS: WELLBUTRIN XL (24 hour extended release) 150 MG PO (08:35)
[2024-11-02] MEDS: DALIRESP 250 MCG PO (08:36)
[2024-11-02] MEDS: ZOLOFT 100 MG PO (08:36)
[2024-11-02] MEDS: TESSALON PERLES 200 MG PO (08:36)
[2024-11-02 08:42] LABS: ALT (SGPT) 26 U/L (0-50); AST (SGOT) 19 U/L (17-59); Albumin 4.5 g/dl (3.5-5.0); Alkaline Phosphatase 95 U/L (38-126); Blood Urea Nitrogen 24 mg/dl (9-20); Calcium 9.3 mg/dl (8.4-10.2); Carbon Dioxide 27 mmol/L (22-30); Chloride 103 mmol/L (98-107); Estimated Creatinine Clearance 78 ml/min; Glucose 196 mg/dl (70-99); Potassium 4.3 mmol/L (3.5-5.1); Sodium 139 mmol/L (135-145); Total Protein 8.1 g/dl (6.3-8.2); eGFR > 60.00
[2024-11-02 08:57] LABS: Hematocrit 34.7 % (39.0-52.0); Hemoglobin 10.8 g/dL (13.0-18.0); Mean Corp Hgb Conc. 31.1 g/dL (33.0-37.0); Mean Corpuscular Volume 88.1 fL (80.0-94.0); Nucleated Red Blood Cells % 0 % (-); Platelet Count 303 10^3/uL (130-400); Red Cell Dist. Width 15.3 % (11.5-14.5)
--- NOTE | 2024-11-02 09:03 | W.PN.HOSP.TC ---
Today's Communication/Plan
-
Continue respiratory treatment
Continue monitoring O2 levels, with exertion as well
Assessment / Plan
Assessment / Plan
Assessment:
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
He had also been admitted to [facility] for CHF exacerbation and underwent inpatient diuresis. He had also been in the hospital at [place] for GI bleeding as well as earlier this year for which he got blood transfusions. In the ED he was
found to be wheezing, and dyspnea secondary to COPD exacerbation. He was given DuoNebs, dexamethasone, IV Lasix which seemed to improve his symptoms.
Plan:
#Acute on chronic COPD/fibrosis exacerbation
- Patient follows with biomedical repair technician at [facility] Dr. Melchor
- DuoNebs scheduled and as needed
- Continue Trelegy Ellipta or equivalent, continue Daliresp
- Decadron 10 mg given in ER continue Decadron 4 mg every 8 hours
- Pulmonology consulted, input appreciated
# Recent acute exacerbation of chronic diastolic stage III heart failure (10/28/2024)
- Was given IV Lasix, current symptoms do not appear to be due to pulmonary congestion
- proBNP not elevated
- Will continue to monitor I/O, daily weights
- CXR showed: 1. Mild diffuse interstitial prominence may reflect pulmonary interstitial edema and/or pneumonitis. Cannot rule out underlying chronic interstitial lung disease. Superimposed mild left basilar atelectasis and/or pneumonia
- No further Lasix indicated at this time
#Recent GI bleed on Xarelto August 2024 at [place]-Patient reports received blood at that time
#Acute on chronic anemia�normocytic
#History iron deficiency anemia
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
- Hgb 10
- Continue Protonix, B12, ferrous sulfate
#Depression/anxiety
- Continue Sertraline, Wellbutrin
#Sleep apnea/CPAP
- Continue CPAP at night
#Paroxysmal A-fib
- Status post multiple cardioversions and cardiac ablation 11/02/2013, 10/02/2018
- Xarelto on hold due to GI bleed in August 2024
- Follows with [facility] cardiology is due for consideration of Watchman device
Full Code
DVT Prophylaxis: SCDs
Anticipated Discharge: Within 24 hours
Subjective/Interval History
-
Date of Service: November 02, 2024
Patient seen this morning, was on room air and speaking without any difficulty. Said that his breathing has much improved from when he came in but he still has this dry cough. Does not produce any phlegm at this time however he said he was
producing some phlegm yesterday. Said that he has had this exacerbations of his COPD before as well and this is very similar to those events. Overall in better spirits than yesterday. Does not report any chest pain, nausea, vomiting, or any
abdominal pain. Is continue to have some shortness of breath however, especially on exertion.
Objective Data
-
Labs:
Laboratory Results
11/02/24
08:08
WBC 8.0
Hgb 10.8 L
Hct 34.7 L
Plt Count 303 D
Sodium 139
Potassium 4.3
Chloride 103
Carbon Dioxide 27
BUN 24 H
Creatinine 0.9
Glucose 196 H
Calcium 9.3
Total Bilirubin 0.7
AST 19
ALT 26
Alkaline Phosphatase 95
Vital Signs:
Vital Signs
Temp Pulse Resp BP Pulse Ox
96.5 F L 73 16 176/90 91
11/02/24 07:00 11/02/24 07:52 11/02/24 07:52 11/02/24 07:00 11/02/24 07:52
I&O
11/01/24 11/02/24 11/03/24
06:59 06:59 06:59
Intake Total 400 / 400
Output Total 1819 / 182
Balance -1420 / -1420
Review of Systems
-
History Source: Patient
Constitutional: Reports No Symptoms
EENT: Reports No Symptoms Reported
Respiratory: Reports Cough, Trouble Breathing and Wheezing
Cardiac: Reports No Symptoms
Abdomen/GI: Reports No Symptoms
Genitourinary: Reports No Symptoms
Musculoskeletal: Reports No Symptoms
Skin: Reports No Symptoms
Neuro: Reports No Symptoms
Endocrine: Reports No Symptoms
Hematologic / Lymphatic: Reports No Symptoms
Allergy / Immunology: Reports No Symptoms
Physical Exam
-
General: Well Developed, Well Nourished, No Apparent Distress, Comfortable and Conversant
HEENT: Normocephalic and Atraumatic
Respiratory: Wheezes (Right lower lobe), Crackles and Decreased Breath Sounds
Cardiac: Regular Rhythm and S1/S2; Negative Murmur or Calf Tenderness
GI: Soft, Nontender, Nondistended and Normal Bowel Sounds
Musculoskeletal: No Clubbing, No Cyanosis and No Edema
Skin: Warm and Dry
Neuro: Awake, Alert, Oriented, AO x 3, No Motor Deficits and No Sensory Deficits
Psych: Calm
Data Reviewed
-
Diagnostic Radiology: Report Reviewed by me, Discussed with Physician and Discussed with Patient
Labs: Labs Reviewed by me, Discussed with Physician and Discussed with Patient
--- NOTE | 2024-11-02 09:43 | CM ---
hardware manager reviewed patient's chart and met with patient and patient lives with his spouse in a split level home, patient is independent with adl's and ambulation, patient drives, patient has home oxygen at 4-6 liters, patient does not remember
the name of his oxygen supplier. Patient purchased his own trilogy, and has a CPAP machine, home with spouse when stable.
PCP: Lara Olsen
Pharmacy: [facility].
--- NOTE | 2024-11-02 11:22 | CON.PUL ---
Consultation
Consultation Request
Date/Time Consultation Requested: 11/02/2024
Date/Time Consultation Performed: 10/2024
Medical History
-
Chief Complaint: Shortness of breath
History of Present Illness:
Patient is a 79-year-old gentleman with known history of severe COPD, baseline home oxygen dependent as well as diastolic congestive heart failure and moderate aortic stenosis who presented to the hospital with shortness of breath going on for about
a week. Reportedly about 5 days ago patient was treated at [facility] for CHF diagnosis. Patient reports having had significant diuresis with initial improvement but then his symptoms plateaued and have not improved any further. Patient
also reported wheezing at home which has not improved. 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 Patient is
established with the community stone engraver and follows up closely as outpatient. In view of shortness of breath, pulmonary consultation was requested for further input
Past Medical History
Past Medical History: Reports Other
Additional Past Medical History:
Iron deficiency anemia
Cardiomyopathy
Chronic diastolic heart failure
Paroxysmal A-fib/a flutter
Severe COPD
Chronic hypoxic respiratory failure on chronic 4 L nasal cannula is using 6 L
ILD
Obstructive sleep apnea CPAP setting 12
Past Surgical History: Reports Other
Additional Past Surgical History:
Hernia repair
Right knee replacement
Left knee replacement
Cardioversion times 03/24/2013, 10/02/2018
Cardiac ablation
Social History
Tobacco: Former Smoker
Alcohol: None
Drug: None
Personal:
Living: With Family
Family History
Family History: Not pertinent
Allergies / Home Medications
Allergies
Allergy/AdvReac Type Severity Reaction Status Date / Time
No Known Allergies Allergy Verified 02/27/24 13:02
Home Medications
�Medication �Instructions �Recorded �Confirmed �Last Taken �Type
fluticasone fur. 100 mcg-umeclid 1 inh inhalation R DAILY 08/02/23 11/01/24 11/01/24 History
62.5 mcg-vilant 25 mcg Lung/Breathing Issues
inhalat.powder (Trelegy Ellipta)
sertraline 100 mg tablet 100 mg PO DAILY depression/anxiety 02/27/24 11/01/24 11/01/24 History
albuterol sulfate 2.5 mg/3 mL 2.5 mg inhalation R Q6HPRN PRN sob 11/01/24 11/01/24 Unknown History
(0.083 %) solution for nebulization
benzonatate 200 mg capsule 200 mg PO DAILY Cough 11/01/24 11/01/24 11/01/24 History
bupropion HCl 150 mg 24 hr tablet, 150 mg PO DAILY Depression 11/01/24 11/01/24 11/01/24 History
extended release (Wellbutrin XL)
cyanocobalamin (vitamin B-12) 1,000 mcg PO DAILY Supplement 11/01/24 11/01/24 11/01/24 History
1,000 mcg tablet
ferrous sulfate 325 mg (65 mg 325 mg PO QPM Supplement 11/01/24 11/01/24 10/31/24 History
iron) tablet
guaifenesin 1,200 mg tablet, 1,200 mg PO DAILY Congestion 11/01/24 11/01/24 11/01/24 History
extended release 12 hr (Mucinex)
pantoprazole 40 mg tablet,delayed 40 mg PO DAILY Gastrointestinal 11/01/24 11/01/24 11/01/24 History
release (Protonix) Issue
roflumilast 250 mcg tablet 250 mcg PO DAILY Lung/Breathing 11/01/24 11/01/24 11/01/24 History
(Daliresp) Issues
Review of Systems
-
Hematologic/Lymphatic: Other (All 14 systems reviewed and negative except as stated above in the history of present illness.)
Vitals / Labs / Diagnostic Testing
Vital Signs
Temp Pulse Resp BP Pulse Ox
97.8 F 85 16 148/67 100
11/02/24 11:00 11/02/24 11:00 11/02/24 11:00 11/02/24 11:00 11/02/24 11:00
Lab Data
11/02/24 08:08
11/02/24 08:08
Microbiology
11/01/24 17:51 Nasal Swab Influenza Types A & B (TITUS) - Final
Negative for Influenza A & B, NAAT
Negative results must be combined with clinical observations
and patient history.
Nucleic Acid Amplification test (NAAT)performed on the
[employer] NOW platform.
Diagnostic Testing:
Physical Exam
-
HEENT: Normocephalic
Cardiovascular: S1/S2
Respiratory: Wheeze
GI: Soft and Non Distended
Neurology: Awake and Alert
Skin: Warm
General: Comfortable
Assessment
-
#1. Acute COPD exacerbation, suspect related to URI
- Reportedly baseline severe COPD, has been on Trelegy at home along with Daliresp
- Chronically home oxygen dependent, 6 L/min at baseline
- Still wheezy on exam, clinically improving
- Currently on Symbicort, Spiriva, albuterol and IV dexamethasone, continue
- Check procalcitonin to help guide regarding antibiotics
#2. H/o CPFE, combined pulmonary fibrosis and emphysema
- Prior imaging suggestive of upper lobe emphysema and lower lobe fibrotic changes.
- Patient is established with a stone engraver as outpatient and follow up is scheduled for coming Monday
- Current presentation is more suggestive of COPD exacerbation rather than flare of IPF
#3. History of obstructive sleep apnea
- BMI elevated 35.9, on nightly CPAP therapy
- Continue inpatient use
DVT prophylaxis, on SCDs with recent GI bleed
Other medical diagnoses:
- HFpEF, LVEF 65-70% with Stage III Diastolic dysfunction. Appears euvolemic, trace pedal edema. Add IV Lasix for now.
- Moderate Aortic Stenosis
- Paroxysmal atrial fibrillation s/p ablation in 2013 and 2018
- Hypertension, hyperlipidemia
- Chronic right bundle branch block
- Atypical atrial flutter
- History of PFO
- History of smoking
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
Total time spent on this consultation/encounter __65__ minutes which includes review of history, physical exam, medications, laboratory data, personal review of imaging, extensive review of outpatient records, discussion with care team and
respiratory therapy.
Data:
CXR 10/2024: Mild diffuse interstitial prominence may reflect pulmonary interstitial edema and/or pneumonitis. Cannot rule out underlying chronic interstitial lung disease.
Superimposed mild left basilar atelectasis and/or pneumonia.
ECHO 05/2023: Normal left ventricular chamber size.
Mild concentric left ventricular hypertrophy.
Hyperdynamic left ventricular systolic function.
Estimated ejection fraction is 65-70% by visual assessment.
Stage III diastolic dysfunction suggestive of restrictive filling pattern and
increased filling pressures.
Normal right ventricular size and function.
Moderate aortic stenosis.
Peak/mean gradients across the aortic valve are 45/26 mmHg.
Mild aortic regurgitation.
Trace tricuspid regurgitation.
Trivial pericardial effusion.
The IVC is of normal size and demonstrates normal respiratory variation.
NO significant change since 09/2021 echocardiogram
PET-CT 08/2023: Negative
[2024-11-02 11:25] LABS: Glucose - Point of Care 242 mg/dl (70-99)
[2024-11-02] MEDS: VENTOLIN NEBULES 2.5 MG INH ×3 (11:25→19:55)
[2024-11-02 13:03] LABS: Procalcitonin < 0.05 ng/ml (0.0-0.25)
[2024-11-02] MEDS: NOVOLOG FLEXPEN-LOW RESISTANCE 2 UNITS SC (13:09)
[2024-11-02] MEDS: LASIX 40 MG IV (13:11)
[2024-11-02 16:41] LABS: Glucose - Point of Care 198 mg/dl (70-99)
[2024-11-02] MEDS: NOVOLOG FLEXPEN-LOW RESISTANCE 1 UNITS SC (17:12)
[2024-11-02 21:45] LABS: Glucose - Point of Care 207 mg/dl (70-99)
[2024-11-03] VITALS (7 sets, daily range): BP systolic 124–143; BP diastolic 65–69; PULSE 80; BMI 35.5
[2024-11-03] MEDS: DECADRON 4 MG IV ×2 (02:45→10:00)
[2024-11-03] MEDS: SPIRIVA RESPIMAT 2.5 MCG 2 PUFF INH (07:23)
[2024-11-03] MEDS: SYMBICORT 80/4.5 MCG INHALER 2 PUFF INH (07:23)
[2024-11-03] MEDS: VENTOLIN NEBULES 2.5 MG INH (07:23)
[2024-11-03] MEDS: LASIX 40 MG IV (08:03)
[2024-11-03] MEDS: WELLBUTRIN XL (24 hour extended release) 150 MG PO (08:04)
[2024-11-03] MEDS: TESSALON PERLES 200 MG PO (08:04)
[2024-11-03] MEDS: PROTONIX 40 MG PO (08:04)
[2024-11-03] MEDS: VITAMIN B-12 1000 MCG PO (08:04)
[2024-11-03] MEDS: MUCINEX 1200 MG PO (08:04)
[2024-11-03] MEDS: ZOLOFT 100 MG PO (08:04)
[2024-11-03] MEDS: DALIRESP 250 MCG PO (08:04)
[2024-11-03 08:20] LABS: Glucose - Point of Care 190 mg/dl (70-99)
--- NOTE | 2024-11-03 08:25 | W.PN.HOSP.TC ---
Today's Communication/Plan
-
Continue oxygen support
Continue respiratory therapy
OT today
Assessment / Plan
Assessment / Plan
Assessment:
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
He had also been admitted to [facility] for CHF exacerbation and underwent inpatient diuresis. He had also been in the hospital at [place] for GI bleeding as well as earlier this year for which he got blood transfusions. In the ED he was
found to be wheezing, and dyspnea secondary to COPD exacerbation. He was given DuoNebs, dexamethasone, IV Lasix which seemed to improve his symptoms.
Plan:
#Acute on chronic COPD/fibrosis exacerbation
- Patient follows with cleaner carpet and upholstery at [facility] Dr. Melchor
- DuoNebs scheduled and as needed
- Continue Trelegy Ellipta or equivalent, continue Daliresp
- Decadron 10 mg given in ER continue Decadron 4 mg every 8 hours
- Pulmonology consulted, input appreciated
- Procalcitonin checked yesterday, was not elevated, no evidence for pneumonia at this time
- Wheezing has improved today
- Continued treatment with Mucinex, benzotate Perles for cough
# Recent acute exacerbation of chronic diastolic stage III heart failure (10/28/2024)
- Was given IV Lasix, current symptoms do not appear to be due to pulmonary congestion
- proBNP not elevated
- Will continue to monitor I/O, daily weights
- CXR showed: 1. Mild diffuse interstitial prominence may reflect pulmonary interstitial edema and/or pneumonitis. Cannot rule out underlying chronic interstitial lung disease. Superimposed mild left basilar atelectasis and/or pneumonia
- No further Lasix indicated at this time
#Recent GI bleed on Xarelto August 2024 at [place]-Patient reports received blood at that time
#Acute on chronic anemia�normocytic
#History iron deficiency anemia
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
- Hgb 10
- Continue Protonix, B12, ferrous sulfate
#Depression/anxiety
- Continue Sertraline, Wellbutrin
#Sleep apnea/CPAP
- Continue CPAP at night
#Paroxysmal A-fib
- Status post multiple cardioversions and cardiac ablation 11/02/2013, 10/02/2018
- Xarelto on hold due to GI bleed in August 2024
- Follows with [facility] cardiology is due for consideration of Watchman device
Full Code
DVT Prophylaxis: SCDs
Anticipated Discharge: Within 24 hours
Subjective/Interval History
-
Date of Service: November 03, 2024
Seen patient this morning while he was getting respiratory therapy. Reported to me that he was feeling a little bit better from yesterday, but was not able to sleep as well due to having unproductive cough. Overall though he is feeling better
however was not able to walk too much yesterday as it was very difficult due to oxygen requirement. Was on 5 L of oxygen when seen in the morning but has been able to go down to 4 L at times.
Objective Data
-
Labs:
Laboratory Results
11/03/24
06:00
WBC Pending
Hgb Pending
Hct Pending
Plt Count Pending
Sodium Pending
Potassium Pending
Chloride Pending
Carbon Dioxide Pending
BUN Pending
Creatinine Pending
Glucose Pending
Calcium Pending
Total Bilirubin Pending
AST Pending
ALT Pending
Alkaline Phosphatase Pending
Vital Signs:
Vital Signs
Temp Pulse Resp BP Pulse Ox
97.6 F 72 18 134/69 99
11/03/24 03:23 11/03/24 07:27 11/03/24 07:27 11/03/24 08:03 11/03/24 07:27
I&O
11/02/24 11/03/24 11/04/24
06:59 06:59 06:59
Intake Total 400 / 400 1080 / 1080
Output Total 1820 / 1820 3250 / 3250
Balance -1420 / -1420 -2170 / -2170
Review of Systems
-
History Source: Patient
Constitutional: Reports No Symptoms
EENT: Reports No Symptoms Reported
Respiratory: Reports Cough, Trouble Breathing and Wheezing
Cardiac: Reports No Symptoms
Abdomen/GI: Reports No Symptoms
Genitourinary: Reports No Symptoms
Musculoskeletal: Reports No Symptoms
Skin: Reports No Symptoms
Neuro: Reports No Symptoms
Endocrine: Reports No Symptoms
Hematologic / Lymphatic: Reports No Symptoms
Allergy / Immunology: Reports No Symptoms
Physical Exam
-
General: Well Developed, Well Nourished, No Apparent Distress, Comfortable and Conversant
HEENT: Normocephalic, Atraumatic and Oxygen (5 L)
Respiratory: Wheezes (Bilateral) and Non Labored Respirations
Cardiac: Regular Rhythm and S1/S2; Negative Murmur or Calf Tenderness
GI: Soft, Nontender, Nondistended and Normal Bowel Sounds
Musculoskeletal: No Clubbing, No Cyanosis and No Edema
Skin: Warm and Dry
Neuro: Awake, Alert, Oriented, AO x 3, No Motor Deficits and No Sensory Deficits
Psych: Calm
Data Reviewed
-
Labs: Labs Reviewed by me, Discussed with Physician, Discussed with Nurse and Discussed with Patient
[2024-11-03] MEDS: NOVOLOG FLEXPEN-LOW RESISTANCE 1 UNITS SC ×3 (08:42→17:25)
[2024-11-03 08:43] LABS: Hematocrit 34.3 % (39.0-52.0); Hemoglobin 10.8 g/dL (13.0-18.0); Mean Corp Hgb Conc. 31.5 g/dL (33.0-37.0); Mean Corpuscular Volume 87.9 fL (80.0-94.0); Nucleated Red Blood Cells % 0 % (-); Platelet Count 299 10^3/uL (130-400); Red Cell Dist. Width 15.9 % (11.5-14.5)
[2024-11-03 09:03] LABS: ALT (SGPT) 24 U/L (0-50); AST (SGOT) 18 U/L (17-59); Albumin 4.7 g/dl (3.5-5.0); Alkaline Phosphatase 90 U/L (38-126); Blood Urea Nitrogen 25 mg/dl (9-20); Calcium 9.6 mg/dl (8.4-10.2); Carbon Dioxide 28 mmol/L (22-30); Chloride 101 mmol/L (98-107); Estimated Creatinine Clearance 77 ml/min; Glucose 180 mg/dl (70-99); Potassium 5.0 mmol/L (3.5-5.1); Sodium 138 mmol/L (135-145); Total Protein 8.4 g/dl (6.3-8.2); eGFR > 60.00
[2024-11-03 11:15] LABS: Glycohemoglobin (HgbA1c) 5.9 % (4.0-5.6)
--- NOTE | 2024-11-03 11:46 | W.PN.PUL3 ---
Today's Communication / Plan
-
- D/c inhalers and Dexamethasone
- Start Duoneb QID, Budesonide BID and Mucinex BID
- Switch to Solumedrol 40 mg IV BID
- Azithromycin 500 mg daily for 3 days
Assessment
-
Patient is a 79-year-old gentleman with known history of severe COPD, baseline home oxygen dependent as well as diastolic congestive heart failure and moderate aortic stenosis who presented to the hospital with shortness of breath going on for about
a week. Reportedly about 5 days ago patient was treated at [facility] for CHF diagnosis. Patient reports having had significant diuresis with initial improvement but then his symptoms plateaued and have not improved any further. Patient
also reported wheezing at home which has not improved. 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 Patient is
established with the community statistician theoretical and follows up closely as outpatient. In view of shortness of breath, pulmonary consultation was requested for further input
#1. Acute COPD exacerbation, suspect related to URI
- Still quite symptomatic.
- Reportedly baseline severe COPD, has been on Trelegy at home along with Daliresp
- Chronically home oxygen dependent, 6 L/min at baseline
- Start Duoneb, Budesonide and IV Solumedrol
- Azithromycin for 3 days
- Micinex BID
#2. H/o CPFE, combined pulmonary fibrosis and emphysema
- Prior imaging suggestive of upper lobe emphysema and lower lobe fibrotic changes.
- Patient is established with a statistician theoretical as outpatient and follow up is scheduled for coming Monday
- Current presentation is more suggestive of COPD exacerbation rather than flare of IPF
#3. History of obstructive sleep apnea
- BMI elevated 35.9, on nightly CPAP therapy
- Continue inpatient use
DVT prophylaxis, on SCDs with recent GI bleed
Other medical diagnoses:
- HFpEF, LVEF 65-70% with Stage III Diastolic dysfunction. Appears euvolemic, trace pedal edema. Add IV Lasix for now.
- Moderate Aortic Stenosis
- Paroxysmal atrial fibrillation s/p ablation in 2013 and 2018
- Hypertension, hyperlipidemia
- Chronic right bundle branch block
- Atypical atrial flutter
- History of PFO
- History of smoking
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
Total time spent on this consultation/encounter __45__ minutes which includes review of history, physical exam, medications, laboratory data, personal review of imaging, extensive review of outpatient records, discussion with care team and
respiratory therapy.
Data:
CXR 10/2024: Mild diffuse interstitial prominence may reflect pulmonary interstitial edema and/or pneumonitis. Cannot rule out underlying chronic interstitial lung disease.
Superimposed mild left basilar atelectasis and/or pneumonia.
ECHO 05/2023: Normal left ventricular chamber size.
Mild concentric left ventricular hypertrophy.
Hyperdynamic left ventricular systolic function.
Estimated ejection fraction is 65-70% by visual assessment.
Stage III diastolic dysfunction suggestive of restrictive filling pattern and
increased filling pressures.
Normal right ventricular size and function.
Moderate aortic stenosis.
Peak/mean gradients across the aortic valve are 45/26 mmHg.
Mild aortic regurgitation.
Trace tricuspid regurgitation.
Trivial pericardial effusion.
The IVC is of normal size and demonstrates normal respiratory variation.
NO significant change since 09/2021 echocardiogram
PET-CT 08/2023: Negative
Subjective Data
-
Date of Service:
Date of Service: November 03, 2024
Subjective:
Still wheezy and coughing
Review of Systems
Genitourinary: Other (No new symptoms reported)
Objective Data
Data Reviewed
Vital Signs / I&O / Oxygen:
Vital Signs
Temp Pulse Resp BP Pulse Ox
98.3 F 72 18 134/69 99
11/03/24 08:00 11/03/24 08:00 11/03/24 08:00 11/03/24 08:03 11/03/24 08:15
Intake and Output
11/02/24 11/03/24 11/04/24
06:59 06:59 06:59
Intake Total 400 / 400 1080 / 1080
Output Total 1820 / 1820 3250 / 3250 1000 / 1000
Balance -1420 / -1420 -2170 / -2170 -1000 / -1000
SaO2 99
Nasal Cannula flow liters per 4
minute
Physical Exam
General: Comfortable
HEENT: Normocephalic
Cardiovascular: S1-S2
Respiratory: Wheeze (Unchanged)
GI: Soft
Neurology: Awake and Alert
Skin: Warm
Labs/Micro/Reports
Lab Data
11/03/24 08:27
11/03/24 08:27
Microbiology
11/01/24 17:51 Nasal Swab Influenza Types A & B (TITUS) - Final
Negative for Influenza A & B, NAAT
Negative results must be combined with clinical observations
and patient history.
Nucleic Acid Amplification test (NAAT)performed on the
[email or web address] NOW platform.
[2024-11-03] MEDS: DUONEB 3 ML INH ×3 (12:06→19:42)
[2024-11-03] MEDS: PULMICORT 0.5 MG INH ×2 (12:06→19:42)
[2024-11-03] MEDS: SODIUM CHLORIDE 3% FOR INHALATION 1 VIAL INH (12:06)
[2024-11-03] MEDS: ZITHROMAX 500 MG PO (12:25)
[2024-11-03 12:30] LABS: Glucose - Point of Care 159 mg/dl (70-99)
[2024-11-03] MEDS: SOLU-MEDROL PF 40 MG IV (17:24)
[2024-11-03 17:29] LABS: Glucose - Point of Care 197 mg/dl (70-99)
[2024-11-03 21:24] LABS: Glucose - Point of Care 183 mg/dl (70-99)
[2024-11-04] VITALS (7 sets, daily range): BP systolic 103–137; BP diastolic 63–79; PULSE 87; BMI 36.3
[2024-11-04] MEDS: SOLU-MEDROL PF 40 MG IV ×2 (06:25→17:40)
[2024-11-04] MEDS: DUONEB 3 ML INH ×4 (07:17→19:26)
[2024-11-04] MEDS: PULMICORT 0.5 MG INH ×2 (07:17→19:26)
--- NOTE | 2024-11-04 07:51 | W.PN.HOSP.TC ---
Addendum entered and electronically signed by Theodore Diallo MD 11/04/24 20:44:
Attending Addendum-
I saw and evaluated the patient. I reviewed the resident�s note and agree with findings and plan as documented in the resident�s note. Sub: Seen with present. Complains of dry cough and MEDEROS but improving. Denies fevers chills. Full 12 point
ROS reviewed and negative except as documented Exam: Vitals reviewed in chart GEN-NAD heart RRR Lungs mild scattered exp wheeze decreased air entry b/l abd soft NT ND pos BS LE no edema
#Acute COPD exacerbation with acute on chroninc hypoxemic respiratory failure
- wean o2 for sats 88-92% on chronicn 4-6L at home
- Patient follows with lepidopterist at [facility] Dr. Melchor
- DuoNebs scheduled and as needed cont budesonide
- continue Daliresp
- cont solumedrol
- Pulmonology input appreciated
- Continued treatment with Mucinex, Perles for cough
- cont azithromycin x 3 days
# HFpEF
- not in AE
- Will continue to monitor I/O, daily weights
- No further Lasix indicated at this time
#Recent GI bleed on Xarelto August 2024 at [place]
#Acute on chronic anemia�normocytic
#History iron deficiency anemia
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
- Hgb stable
- Continue Protonix, B12, ferrous sulfate
#Depression/anxiety
- Continue Sertraline, Wellbutrin
#Sleep apnea/CPAP
- Continue CPAP at night
#Paroxysmal A-fib
- Status post multiple cardioversions and cardiac ablation 11/02/2013, 10/02/2018
- Xarelto on hold due to GI bleed in August 2024
- Follows with [facility]ology is due for consideration of Watchman device
- d/w [facility] cards
Full Code
DVT Prophylaxis: SCDs
Dispo lives with - [facility] home in am
ACP
Patient consented to discuss, was with , time spent explanation of advance directives, changes in health status, patient�s health care wishes if the patient becomes unable to make health decisions, goals of care, code status, and prognosis 'i
have a lot of life to live im not giving up'- 16 minutes
Time spent coordinating care, review of plan of care with resident, personally reviewed previous records in EMR, med rec, labs, radiology, d/w nursing, family total time documented is exclusive of any additional time listed that was spent in advance
care planning discussion -�51 minutes
Original Note:
Today's Communication/Plan
-
Decrease supplemental O2 as tolerated with goal saturation of 88-92%
Continue duonebs, azithromycin, IV steroids
Goal to switch IV to oral steroids
Assessment / Plan
Assessment / Plan
Assessment:
This is a 79 y/o male with pmhx of chronic anemia, COPD on 6L supplemental O2 on baseline, paroxysmal atrial fibrillation, CHF and obstructive sleep apnea who presented to the ED on 11/01/2024 with shortness of breath with minimal exertion. Recently
he had been hospitalized at [place] for acute CHF exacerbation, at which time he had been discharged on 4L O2. In the ED he was found to be wheezing, and dyspnea secondary to acute COPD exacerbation. He was given DuoNebs, dexamethasone, IV Lasix.
Plan:
#Acute on chronic COPD/fibrosis exacerbation
- Patient follows with lepidopterist at [facility] Dr. Melchor
- Continue DuoNebs scheduled and as needed
- Continue Trelegy Ellipta or equivalent, continue Azithromycin for 3 days total
- Per Pulmonary, plan to transition from IV to oral steroids tomorrow if patient continues to improve.
- Pulmonology is following, appreciate their insight into his case
- Continue Mucinex, Tessalon Perles for cough
- Will wean supplemental oxygen as tolerated. Goal to keep O2 saturation between 88-92% while on supplemental oxygen.
#Hyperkalemia
-Potassium today noted to be elevated, thus far has been normal
-At this time no clear origin of hyperkalemia. No medications immediately identifiable as cause
-Continue to follow BMP
# Recent acute exacerbation of chronic diastolic stage III heart failure with hospitalization at [place] (10/28/2024)
- Current symptoms appear more likely to be due to acute on chronic COPD exacerbation
- Will continue to monitor I/O, daily weights
- Chest X-ray showed: Mild diffuse interstitial prominence may reflect pulmonary interstitial edema and/or pneumonitis. Cannot rule out underlying chronic interstitial lung disease. Superimposed mild left basilar atelectasis and/or pneumonia
- No further Lasix indicated at this time
#Acute on Chronic Anemia with Recent GI bleed on Xarelto August 2024 at [place]
-Patient with GAVE syndrome s/p cautery with APC 02/2024, requiring 3 units pRBCs
-Patient reports at recent 08/2024 hospitalization he was also given blood products
-Hemoglobin today:
-Continue PPI, Vitamin B12
#Depression/anxiety
- Continue Sertraline, Wellbutrin
#Sleep apnea/CPAP
- Continue CPAP at night
#Paroxysmal A-fib
- Status post multiple cardioversions and cardiac ablation 11/02/2013, 10/02/2018
- Xarelto on hold due to GI bleed in August 2024. Recommend outpatient follow up in regards to potentially resuming anticoagulation
- Previously followed with [facility]ology and is due for consideration of Watchman device. Will recommend following again outpatient for Watchman device.
Full Code
DVT Prophylaxis: SCDs
Anticipated Discharge: 24 - 48 hours
Subjective/Interval History
-
Date of Service: November 04, 2024
Patient was awake when I arrived. He feels significantly improved from when he initially presented to the ED and is free of shortness of breath while sitting comfortably. He does report continued cough, which was productive for small amounts of
yellow-clear mucus yesterday x2, but has been nonproductive since then. He does hae a sore throat which he attributes to frequent coughing. He does continue to use 6L supplemental O2.
Objective Data
-
Labs:
Laboratory Results
11/04/24
06:47
WBC Pending
Hgb Pending
Hct Pending
Plt Count Pending
Sodium Pending
Potassium Pending
Chloride Pending
Carbon Dioxide Pending
BUN Pending
Creatinine Pending
Glucose Pending
Calcium Pending
Total Bilirubin Pending
AST Pending
ALT Pending
Alkaline Phosphatase Pending
Vital Signs:
Vital Signs
Temp Pulse Resp BP Pulse Ox
97.1 F 73 16 134/79 99
11/04/24 03:20 11/04/24 07:25 11/04/24 07:25 11/04/24 03:20 11/04/24 07:25
I&O
11/03/24 11/04/24 11/05/24
06:59 06:59 06:59
Intake Total 1080 / 1080 1160 / 1160
Output Total 3250 / 3250 2950 / 2950
Balance -2170 / -2170 -1790 / -1790
Review of Systems
-
History Source: Patient
Constitutional: Denies Fever or Chills
Respiratory: Reports Cough; Denies Hemoptysis, Trouble Breathing or Wheezing
Cardiac: Denies Chest Pain
Abdomen/GI: Denies Abdominal Pain, Nausea, Vomiting, Diarrhea or Constipated
Neuro: Denies Dizzy, Headache or Weakness
Physical Exam
-
General: Well Developed, Well Nourished, No Apparent Distress and Comfortable
HEENT: Normocephalic, Atraumatic and Oxygen (6L Supplemental O2)
Respiratory: Wheezes
Cardiac: Regular Rhythm and S1/S2
Skin: Warm and Dry
Neuro: Awake, Alert and Oriented
Psych: Calm
[2024-11-04 07:53] LABS: Hematocrit 31.0 % (39.0-52.0); Hemoglobin 9.6 g/dL (13.0-18.0); Mean Corp Hgb Conc. 31.0 g/dL (33.0-37.0); Mean Corpuscular Volume 88.1 fL (80.0-94.0); Nucleated Red Blood Cells % 0 % (-); Platelet Count 272 10^3/uL (130-400); Red Cell Dist. Width 16.1 % (11.5-14.5)
[2024-11-04 08:29] LABS: Glucose - Point of Care 151 mg/dl (70-99)
[2024-11-04 08:29] LABS: ALT (SGPT) 19 U/L (0-50); AST (SGOT) 13 U/L (17-59); Albumin 4.1 g/dl (3.5-5.0); Alkaline Phosphatase 79 U/L (38-126); Blood Urea Nitrogen 31 mg/dl (9-20); Calcium 9.2 mg/dl (8.4-10.2); Carbon Dioxide 27 mmol/L (22-30); Chloride 103 mmol/L (98-107); Estimated Creatinine Clearance 70 ml/min; Glucose 158 mg/dl (70-99); Potassium 5.2 mmol/L (3.5-5.1); Sodium 139 mmol/L (135-145); Total Protein 7.2 g/dl (6.3-8.2); eGFR > 60.00
[2024-11-04] MEDS: NOVOLOG FLEXPEN-LOW RESISTANCE 1 UNITS SC ×2 (08:45→17:39)
[2024-11-04] MEDS: ZOLOFT 100 MG PO (09:05)
[2024-11-04] MEDS: WELLBUTRIN XL (24 hour extended release) 150 MG PO (09:06)
[2024-11-04] MEDS: MUCINEX 1200 MG PO (09:06)
[2024-11-04] MEDS: PROTONIX 40 MG PO (09:06)
[2024-11-04] MEDS: DALIRESP 250 MCG PO (09:10)
[2024-11-04] MEDS: TESSALON PERLES 200 MG PO (09:10)
[2024-11-04] MEDS: ZITHROMAX 500 MG PO (09:11)
[2024-11-04] MEDS: VITAMIN B-12 1000 MCG PO (09:12)
--- NOTE | 2024-11-04 11:11 | CM ---
CM reviewed chart, patient seen bedside.
CM discussed therapy recommendations of home health. Patient reports he was scheduled to start with [facility] but was admitted to the Hospital.
CM will place referral to [facility] [place]
Patient confirms he wear continuos O2.
CM will continue to follow for all discharge planning needs.
Plan; home with referral to [facility]
[2024-11-04 12:22] LABS: Glucose - Point of Care 141 mg/dl (70-99)
--- NOTE | 2024-11-04 13:27 | W.PN.PUL3 ---
Today's Communication / Plan
-
Continue IV Tlnl-Uhzlsi-phpigyoedd to prednisone tomorrow if he continues to improve.
Continue nebulizer therapy while in the hospital
Couple days of azithromycin
Continue oxygen supplementation
Hopefully can be discharged in the next 24 hour if clinically improved
Assessment
-
Patient is a 79-year-old gentleman with known history of severe COPD, baseline home oxygen dependent as well as diastolic congestive heart failure and moderate aortic stenosis who presented to the hospital with shortness of breath going on for about
a week. Reportedly about 5 days ago patient was treated at [facility] for CHF diagnosis. Patient reports having had significant diuresis with initial improvement but then his symptoms plateaued and have not improved any further. Patient
also reported wheezing at home which has not improved. 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 Patient is
established with the community bridge opener and follows up closely as outpatient. In view of shortness of breath, pulmonary consultation was requested for further input
#1. Acute COPD exacerbation, suspect related to URI-possibly tracheobronchitis.
-Chest x-ray without acute infiltrate./Procalcitonin negative
- Still quite symptomatic-mainly complaining of cough paroxysms and shortness of breath.
- Reportedly baseline severe COPD, has been on Trelegy at home along with Daliresp
- Chronically home oxygen dependent, 6 L/min at baseline
- Continue DuoNebs/Pulmicort- Nebulizer
- Continue IV Solu-Medrol without change-hopefully can transition to prednisone in 24 hours.
- Azithromycin for 3 days
- Micinex BID
#2. H/o CPFE, combined pulmonary fibrosis and emphysema
- Prior imaging suggestive of upper lobe emphysema and lower lobe fibrotic changes.
- Patient is established with a bridge opener as outpatient and follow up is scheduled for coming Monday
- Current presentation is more suggestive of COPD exacerbation rather than flare of IPF
#3. History of obstructive sleep apnea
- BMI elevated 35.9, on nightly CPAP therapy
- Continue inpatient use
DVT prophylaxis, on SCDs with recent GI bleed
Other medical diagnoses:
- HFpEF, LVEF 65-70% with Stage III Diastolic dysfunction. Appears euvolemic, trace pedal edema. Add IV Lasix for now.
- Moderate Aortic Stenosis
- Paroxysmal atrial fibrillation s/p ablation in 2013 and 2018
- Hypertension, hyperlipidemia
- Chronic right bundle branch block
- Atypical atrial flutter
- History of PFO
- History of smoking
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
Patient will continue to follow-up with primary bridge opener.
Data:
CXR 10/2024: Mild diffuse interstitial prominence may reflect pulmonary interstitial edema and/or pneumonitis. Cannot rule out underlying chronic interstitial lung disease.
Superimposed mild left basilar atelectasis and/or pneumonia.
ECHO 05/2023: Normal left ventricular chamber size.
Mild concentric left ventricular hypertrophy.
Hyperdynamic left ventricular systolic function.
Estimated ejection fraction is 65-70% by visual assessment.
Stage III diastolic dysfunction suggestive of restrictive filling pattern and
increased filling pressures.
Normal right ventricular size and function.
Moderate aortic stenosis.
Peak/mean gradients across the aortic valve are 45/26 mmHg.
Mild aortic regurgitation.
Trace tricuspid regurgitation.
Trivial pericardial effusion.
The IVC is of normal size and demonstrates normal respiratory variation.
NO significant change since 09/2021 echocardiogram
PET-CT 08/2023: Negative
Subjective Data
-
Date of Service:
Date of Service: November 04, 2024
Chief Complaint: Pulmonary Follow Up (Acute exacerbation of COPD)
Subjective:
Continues to report coughing no significant expectoration
Denies hemoptysis.
Review of Systems
Cardiopulmonary: Dyspnea, Cough and Wheezing
Objective Data
Data Reviewed
Vital Signs / I&O / Oxygen:
Vital Signs
Temp Pulse Resp BP Pulse Ox
97.6 F 68 15 103/69 100
11/04/24 11:00 11/04/24 11:20 11/04/24 11:20 11/04/24 11:00 11/04/24 11:20
Intake and Output
11/03/24 11/04/24 11/05/24
06:59 06:59 06:59
Intake Total 1080 / 1080 1160 / 1160
Output Total 3250 / 3250 2950 / 2950
Balance -2170 / -2170 -1790 / -1790
SaO2 100
Nasal Cannula flow liters per 5
minute
Physical Exam
General: Comfortable
HEENT: Normocephalic
Cardiovascular: S1-S2
Respiratory: Wheeze (Forced expiratory wheezing, better air movement) and Crackles ( bibasilar)
GI: Soft
Neurology: Awake and Alert
Skin: Warm
Labs/Micro/Reports
Lab Data
11/04/24 06:47
11/04/24 06:47
Microbiology
11/01/24 17:51 Nasal Swab Influenza Types A & B (TITUS) - Final
Negative for Influenza A & B, NAAT
Negative results must be combined with clinical observations
and patient history.
Nucleic Acid Amplification test (NAAT)performed on the
[employer] platform.
[2024-11-04] MEDS: NOVOLOG FLEXPEN-LOW RESISTANCE SC (14:38)
[2024-11-04 16:46] LABS: Glucose - Point of Care 188 mg/dl (70-99)
[2024-11-04] MEDS: FLUSH (NSS) 1 FLUSH IV (17:42)
[2024-11-04 20:49] LABS: Glucose - Point of Care 182 mg/dl (70-99)
[2024-11-05] VITALS (7 sets, daily range): BP systolic 108–141; BP diastolic 65–81; O2SAT 97; BMI 35.3
[2024-11-05] MEDS: SOLU-MEDROL PF 40 MG IV ×2 (06:13→17:04)
--- NOTE | 2024-11-05 07:29 | W.PN.HOSP.TC ---
Addendum entered and electronically signed by Theodore Diallo MD 11/05/24 20:51:
Attending Addendum-
I saw and evaluated the patient. I reviewed the resident�s note and agree with findings and plan as documented in the resident�s note. Sub: Seen with present. Complains of feeling worse today and more 'tight' cough is dry non productive. Denies
fevers chills. Full 12 point ROS reviewed and negative except as documented Exam: Vitals reviewed in chart GEN-NAD heart RRR Lungs no W/R/R decreased air entry b/l abd soft NT ND pos BS LE no edema
#Acute COPD exacerbation with acute on chronic hypoxemic respiratory failure
- weaned back to baseline o2 requirements, 4-6L
- Patient follows with lehr loader at [facility] Dr. Melchor
- DuoNebs and buds scheduled
- continue Daliresp
- cont solumedrol
- Pulmonology input appreciated
- Continued treatment with CatrachoexPily for cough
- cont azithromycin nursing home QOD on DC
# HFpEF
- not in AE
- Will continue to monitor I/O, daily weights
- No further Lasix indicated at this time
# Hyperkalemia- cont albuterol give Lokelma x 1 repeat BMP in am
#Recent GI bleed on Xarelto August 2024 at [place]
#Acute on chronic anemia�normocytic
#History iron deficiency anemia
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
- Hgb stable
- Continue Protonix, B12, ferrous sulfate
#Depression/anxiety
- Continue Sertraline, Wellbutrin
#Sleep apnea/CPAP
- Continue CPAP at night
#Paroxysmal A-fib
- Status post multiple cardioversions and cardiac ablation 11/02/2013, 10/02/2018
- Xarelto on hold due to GI bleed in August 2024
- Follows with [facility]ology is due for consideration of Watchman device
- d/w [facility] cards
Full Code
DVT Prophylaxis: SCDs
Dispo lives with - DC home in am
Time spent coordinating care, review of plan of care with resident, personally reviewed records in EMR, med rec, consults, notes, labs, radiology, d/w nursing � 51 mins
Original Note:
Today's Communication/Plan
-
Continue to monitor BMP
Continue to wean O2 as tolerated
Assessment / Plan
Assessment / Plan
Assessment:
This is a 79 y/o male with pmhx of chronic anemia, COPD on 6L supplemental O2 on baseline, paroxysmal atrial fibrillation, CHF and obstructive sleep apnea who presented to the ED on 11/01/2024 with shortness of breath with minimal exertion. Recently
he had been hospitalized at [place] for acute CHF exacerbation, at which time he had been discharged on 4L O2. In the ED he was found to be wheezing, and dyspnea secondary to acute COPD exacerbation. He was given DuoNebs, dexamethasone, IV Lasix.
Plan:
#Acute on chronic COPD/fibrosis exacerbation
- Patient follows with lehr loader at [facility] Dr. Melchor
- Continue DuoNebs scheduled and as needed
- Continue Trelegy Ellipta or equivalent, continue Azithromycin at current dose for 3 days total
- Per Pulmonary, plan to eventually transition IV to oral steroids once clinically improved. Will discharge him on a steroid taper when it is time to be discharged.
- Pulmonology is following, appreciate their insight into his case.
- Continue Mucinex, Tessalon Perles for cough
- Will wean supplemental oxygen as tolerated. Goal to keep O2 saturation between 88-92% while on supplemental oxygen.
#Hyperkalemia
-Potassium today noted to be elevated again, now 5.4. Was 5.2 yesterday, and normal previously
-Ordered Lokelma today, one time dose
-At this time no clear origin of hyperkalemia. No medications immediately identifiable as cause.
-Continue to follow BMP
# Recent acute exacerbation of chronic diastolic stage III heart failure with hospitalization at [place] (10/28/2024)
- Current symptoms appear more likely to be due to acute on chronic COPD exacerbation
- Will continue to monitor I/O, daily weights
- Chest X-ray showed: Mild diffuse interstitial prominence may reflect pulmonary interstitial edema and/or pneumonitis. Cannot rule out underlying chronic interstitial lung disease. Superimposed mild left basilar atelectasis and/or pneumonia
- No further Lasix indicated at this time
#Acute on Chronic Anemia with Recent GI bleed on Xarelto August 2024 at [place]
-Patient with GAVE syndrome s/p cautery with APC 02/2024, requiring 3 units pRBCs
-Patient reports at recent 08/2024 hospitalization he was also given blood products
-Hemoglobin today: >10, no indication for transition today
-Continue PPI, Vitamin B12
#Depression/anxiety
- Continue Sertraline, Wellbutrin
#Sleep apnea/CPAP
- Continue CPAP at night
#Paroxysmal A-fib
- Status post multiple cardioversions and cardiac ablation 11/02/2013, 10/02/2018
- Xarelto on hold due to GI bleed in August 2024. Recommend outpatient follow up in regards to potentially resuming anticoagulation
- Previously followed with [facility]ology and is due for consideration of Watchman device. Will recommend following again outpatient for Watchman device.
Full Code
DVT Prophylaxis: SCDs
Anticipated Discharge: Within 24 hours
Subjective/Interval History
-
Date of Service: November 05, 2024
Patient was sitting comfortably on the side of his bed when I arrived. He is currently on 4L of O2. He states at home he uses anywhere from 4-6L depending on his symptoms, and there are days which he requires 6L and still cannot get out of bed due
to shortness of breath. He feels better this morning than he did yesterday. He continues to have a dry, hacking cough and sore throat.
Objective Data
-
Labs:
Laboratory Results
11/05/24
06:00
WBC Pending
Hgb Pending
Hct Pending
Plt Count Pending
Sodium Pending
Potassium Pending
Chloride Pending
Carbon Dioxide Pending
BUN Pending
Creatinine Pending
Glucose Pending
Calcium Pending
Vital Signs:
Vital Signs
Temp Pulse Resp BP Pulse Ox
97.9 F 74 16 138/73 97
11/05/24 03:39 11/05/24 03:39 11/05/24 03:39 11/05/24 03:39 11/05/24 03:39
I&O
11/04/24 11/05/24 11/06/24
06:59 06:59 06:59
Intake Total 1160 / 1160 1760 / 1760
Output Total 2950 / 2950 2800 / 2800 100 / 100
Balance -1790 / -1790 -1040 / -1040 -100 / -100
Review of Systems
-
History Source: Patient
Constitutional: Denies Fever or Chills
Respiratory: Reports Cough
Cardiac: Denies Chest Pain or Palpitations
Abdomen/GI: Denies Abdominal Pain, Nausea, Vomiting, Diarrhea or Constipated
Neuro: Denies Dizzy, Headache or Weakness
Physical Exam
-
General: Well Developed, Well Nourished, No Apparent Distress and Comfortable
HEENT: Normocephalic, Atraumatic and Oxygen (4L)
Respiratory: Wheezes (End Expiratory) and Non Labored Respirations
Cardiac: Regular Rhythm and S1/S2
Musculoskeletal: No Edema
Skin: Warm and Dry
Neuro: Awake, Alert and Oriented
Psych: Calm
[2024-11-05] MEDS: DUONEB 3 ML INH ×4 (07:43→19:15)
[2024-11-05] MEDS: PULMICORT 0.5 MG INH ×2 (07:43→19:15)
[2024-11-05 08:31] LABS: Glucose - Point of Care 138 mg/dl (70-99)
[2024-11-05] MEDS: PROTONIX 40 MG PO (08:34)
[2024-11-05] MEDS: WELLBUTRIN XL (24 hour extended release) 150 MG PO (08:34)
[2024-11-05] MEDS: NOVOLOG FLEXPEN-LOW RESISTANCE SC ×2 (08:34→12:23)
[2024-11-05] MEDS: VITAMIN B-12 1000 MCG PO (08:35)
[2024-11-05] MEDS: DALIRESP 250 MCG PO (08:35)
[2024-11-05] MEDS: TESSALON PERLES 200 MG PO (08:35)
[2024-11-05] MEDS: MUCINEX 1200 MG PO (08:35)
[2024-11-05] MEDS: ZOLOFT 100 MG PO (08:36)
[2024-11-05] MEDS: ZITHROMAX 500 MG PO (08:36)
[2024-11-05 09:25] LABS: Hematocrit 34.1 % (39.0-52.0); Hemoglobin 10.5 g/dL (13.0-18.0); Mean Corp Hgb Conc. 30.8 g/dL (33.0-37.0); Mean Corpuscular Volume 88.1 fL (80.0-94.0); Nucleated Red Blood Cells % 0 % (-); Platelet Count 293 10^3/uL (130-400); Red Cell Dist. Width 16.0 % (11.5-14.5)
[2024-11-05 09:52] LABS: Blood Urea Nitrogen 29 mg/dl (9-20); Calcium 9.4 mg/dl (8.4-10.2); Carbon Dioxide 30 mmol/L (22-30); Chloride 103 mmol/L (98-107); Estimated Creatinine Clearance 69 ml/min; Glucose 143 mg/dl (70-99); Potassium 5.4 mmol/L (3.5-5.1); Sodium 140 mmol/L (135-145); eGFR > 60.00
[2024-11-05] MEDS: LOKELMA 10 GRAM PO (11:25)
--- NOTE | 2024-11-05 12:06 | CM ---
CM reviewed chart, patient seen bedside, reports no needs from CM at this time.
Referral made to Erica Plummer aware of patient and will start care upon d.c.
IMM verbally reviewed, provided with copy, placed in chart.
Patient confirms will provide transportation home.
Patient wears home O2.
Plan; home with Elian
Elian
[2024-11-05 12:12] LABS: Glucose - Point of Care 134 mg/dl (70-99)
--- NOTE | 2024-11-05 14:03 | W.PN.PUL3 ---
Today's Communication / Plan
-
Not ready for discharge
Continue Solu-Medrol without change
Continue nebulizer therapy-should be discharged on this regimen until improved
Hold inhaler
Complete 1 more day of azithromycin 500 and then transition to 250 mg every other day for anti-inflammatory properties
Patient would like to follow-up locally-information will be left in the chart
Continue oxygen supplementation currently at baseline 4 L
Will follow
Assessment
-
Patient is a 79-year-old gentleman with known history of severe COPD, baseline home oxygen dependent as well as diastolic congestive heart failure and moderate aortic stenosis who presented to the hospital with shortness of breath going on for about
a week. Reportedly about 5 days ago patient was treated at [facility] for CHF diagnosis. Patient reports having had significant diuresis with initial improvement but then his symptoms plateaued and have not improved any further. Patient
also reported wheezing at home which has not improved. 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 Patient is
established with the community sole filler and follows up closely as outpatient. In view of shortness of breath, pulmonary consultation was requested for further input
#1. Acute COPD exacerbation, suspect related to URI-possibly tracheobronchitis.
-Chest x-ray without acute infiltrate./Procalcitonin negative
-Feels short of breath with activity-still having cough paroxysms 11/05/2024. Feels not ready to be discharged.
- Exertional shortness of breath is slowly improving. This is multifactorial.
- Reportedly baseline severe COPD, has been on Trelegy at home along with Daliresp
- Chronically home oxygen dependent, 6 L/min at baseline
- Continue DuoNebs/Pulmicort- Nebulizer-while in the hospital. May need to discharge on this regimen until he improves.
- Continue IV Solu-Medrol without change still symptomatic. Will continue to reevaluate daily for readiness to transition to prednisone.
- Azithromycin for 3 days-given ongoing bronchitic symptoms after completing azithromycin will continue with this medication at 250 mg every other day for anti-inflammatory properties until seen in our office.
- Micinex BID
#2. H/o CPFE, combined pulmonary fibrosis and emphysema
- Prior imaging suggestive of upper lobe emphysema and lower lobe fibrotic changes.
- Current presentation is more suggestive of COPD exacerbation rather than flare of IPF
- Patient states that he was being evaluated for endobronchial valve lung volume reduction-he would like to follow-up locally.
My information will be left in the chart to follow-up with him after discharge.
#3. History of obstructive sleep apnea
- BMI elevated 35.9, on nightly CPAP therapy
- Continue inpatient use
#4 obesity contributing to symptoms.
He may be candidate for GLP-1 agonist
Will need to complete pulmonary rehabilitation as well.
-
His anemia is also contributing to symptoms.-
DVT prophylaxis, on SCDs with recent GI bleed
Other medical diagnoses:
- HFpEF, LVEF 65-70% with Stage III Diastolic dysfunction. Appears euvolemic, trace pedal edema. Add IV Lasix for now.
- Moderate Aortic Stenosis
- Paroxysmal atrial fibrillation s/p ablation in 2013 and 2018
- Hypertension, hyperlipidemia
- Chronic right bundle branch block
- Atypical atrial flutter
- History of PFO
- History of smoking
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
Patient will continue to follow-up with primary sole filler.

Data:
CXR 10/2024: Mild diffuse interstitial prominence may reflect pulmonary interstitial edema and/or pneumonitis. Cannot rule out underlying chronic interstitial lung disease.
Superimposed mild left basilar atelectasis and/or pneumonia.
ECHO 05/2023: Normal left ventricular chamber size.
Mild concentric left ventricular hypertrophy.
Hyperdynamic left ventricular systolic function.
Estimated ejection fraction is 65-70% by visual assessment.
Stage III diastolic dysfunction suggestive of restrictive filling pattern and
increased filling pressures.
Normal right ventricular size and function.
Moderate aortic stenosis.
Peak/mean gradients across the aortic valve are 45/26 mmHg.
Mild aortic regurgitation.
Trace tricuspid regurgitation.
Trivial pericardial effusion.
The IVC is of normal size and demonstrates normal respiratory variation.
NO significant change since 09/2021 echocardiogram
PET-CT 08/2023: Negative
Subjective Data
-
Date of Service:
Date of Service: November 05, 2024
Chief Complaint: Pulmonary Follow Up (Acute exacerbation of COPD)
Subjective:
Clinically improved-acute short of breath. Still having cough paroxysms.
4 L supplemental oxygen.
Denies significant sputum production
Denies chest pain.
Review of Systems
General: Fever (n)
Cardiopulmonary: Dyspnea (Improved) and Cough (Improved)
GI: Abdominal Pain (n)
Neuro: Headache (n)
Objective Data
Data Reviewed
Vital Signs / I&O / Oxygen:
Vital Signs
Temp Pulse Resp BP Pulse Ox
98.0 F 78 18 130/66 98
11/05/24 10:36 11/05/24 11:41 11/05/24 11:41 11/05/24 10:36 11/05/24 11:41
Intake and Output
11/04/24 11/05/24 11/06/24
06:59 06:59 06:59
Intake Total 1160 / 1160 1760 / 1760
Output Total 2950 / 2950 2800 / 2800 100 / 100
Balance -1790 / -1790 -1040 / -1040 -100 / -100
SaO2 98
Nasal Cannula flow liters per 4
minute
Physical Exam
General: Comfortable
HEENT: Normocephalic
Cardiovascular: S1-S2
Respiratory: Wheeze (Forced expiratory wheezing, better air movement still with prolonged expiratory phase) and Crackles ( bibasilar)
GI: Soft
Neurology: Awake and Alert
Skin: Warm
Labs/Micro/Reports
Lab Data
11/05/24 08:25
11/05/24 08:25
--- NOTE | 2024-11-05 15:20 | PN.CDI ---
CDI
- -
CDI:
Physician Documentation Request
Admit Date: 11/01/24 20:48
Dear Doctor Danielle Carlin,
Patient admitted with acute COPD exacerbation.
11/05 Pulmonary note, 'Acute COPD exacerbation, suspect related to URI-possibly tracheobronchitis....Azithromycin for 3 days-given ongoing bronchitic symptoms...'
Please clarify which of the following accurately represents the likely acuity of the possible tracheobronchitis:
Acute
Acute on chronic
Chronic
Other
Use of terms such as suspected, likely, concern for, or probable (associated with a specific diagnosis that is being evaluated, monitored, or treated as if it exists) are acceptable and can be coded in the inpatient setting, when documented at the
time of discharge.
Thank you,
Heidy ARANGO,RN,CCDS
CDI Specialist
Available via [employer] text
Please use your independent medical judgment in providing your response.
[2024-11-05 16:37] LABS: Glucose - Point of Care 164 mg/dl (70-99)
[2024-11-05] MEDS: NOVOLOG FLEXPEN-LOW RESISTANCE 1 UNITS SC (16:40)
[2024-11-05 21:39] LABS: Glucose - Point of Care 220 mg/dl (70-99)
[2024-11-06 03:47] VITALS: BP 139/73
[2024-11-06] MEDS: SOLU-MEDROL PF 40 MG IV (05:00)
[2024-11-06 06:00] VITALS: BMI 35.1
[2024-11-06 07:20] VITALS: BP 136/78
--- NOTE | 2024-11-06 07:22 | W.PN.HOSP.TC ---
Addendum entered and electronically signed by Theodore Diallo MD 11/06/24 23:01:
Attending Addendum-
I saw and evaluated the patient. I reviewed the resident�s note and agree with findings and plan as documented in the resident�s note. Sub: Seen with present.'i feel great im ready to home.' Cough resolved. Denies fevers chills. Full 12 point
ROS reviewed and negative except as documented Exam: Vitals reviewed in chart GEN-NAD heart RRR Lungs no W/R/R decreased at bases abd soft NT ND pos BS LE no edema
#Acute COPD exacerbation with acute on chronic hypoxemic respiratory failure
- resolved
- weaned back to baseline o2 requirements, 4-6L
- Patient follows with color blender at [facility] Dr. Melchor
- DuoNebs and buds scheduled
- continue Daliresp
- cont solumedrol->po pred taper
- Pulmonology input appreciated
- Continued treatment with Mucinex Perles for cough
- cont azithromycin jail MWF on DC
# HFpEF
- not in AE
- Will continue to monitor I/O, daily weights
- No further Lasix indicated at this time
# Hyperkalemia- resolved, cont albuterol give Lokelma x 1
#Recent GI bleed on Xarelto August 2024 at [facility]
#Acute on chronic anemia�normocytic
#History iron deficiency anemia
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
- Hgb stable
- Continue Protonix, B12, ferrous sulfate
#Depression/anxiety
- Continue Sertraline, Wellbutrin
#Sleep apnea/CPAP
- Continue CPAP at night
#Paroxysmal A-fib
- Status post multiple cardioversions and cardiac ablation 11/02/2013, 10/02/2018
- Xarelto on hold due to GI bleed in August 2024
- Follows with [facility] cardiology is due for consideration of Watchman device
- d/w [facility] cards as OP
Full Code
DVT Prophylaxis: SCDs
Dispo lives with - DC home today
Time spent coordinating care, DC planning, review of DC plan of care with resident, transition of care, review of records, med rec/scripts sent electronically, consults, notes, d/w consultants, nursing, family, and CM� 32 mins >50% of this time was
devoted to counseling and coordination of care
Original Note:
Today's Communication/Plan
-
Discharge planning today
Assessment / Plan
Assessment / Plan
Assessment:
This is a 79 y/o male with pmhx of chronic anemia, COPD on 6L supplemental O2 on baseline, paroxysmal atrial fibrillation, CHF and obstructive sleep apnea who presented to the ED on 11/01/2024 with shortness of breath with minimal exertion. Recently
he had been hospitalized at [facility] for acute CHF exacerbation, at which time he had been discharged on 4L O2. In the ED he was found to be wheezing, and dyspnea secondary to acute COPD exacerbation. He was given DuoNebs, dexamethasone, IV Lasix.
Plan:
#Acute on chronic COPD/fibrosis exacerbation
- Patient follows with color blender at [facility] Dr. Melchor
- Continue DuoNebs scheduled and as needed
- Continue Trelegy Ellipta or equivalent
- Patient completed 3 day course of Azithromycin 500mg. Per pulmonology note, they plan to continue Azithromycin 250mg every other day until he is seen at their office outpatient
- Per Pulmonary, plan to transition to PO steroids. Will discharge him on a steroid taper when it is time to be discharged.
- Pulmonology is following, appreciate their insight into his case.
- Continue Mucinex, Tessalon Perles for cough
- Will wean supplemental oxygen as tolerated. Goal to keep O2 saturation above 88-92% while on supplemental oxygen.
#Hyperkalemia
-Potassium today noted to be elevated again, now 5.2. Was 5.4 yesterday.
-S/p Lokelma yesterday, one time dose
-At this time no clear origin of hyperkalemia. No medications immediately identifiable as cause.
-Continue to follow BMP
# Recent acute exacerbation of chronic diastolic stage III heart failure with hospitalization at [facility] (10/28/2024)
- Current symptoms appear more likely to be due to acute on chronic COPD exacerbation
- Will continue to monitor I/O, daily weights
- Chest X-ray showed: Mild diffuse interstitial prominence may reflect pulmonary interstitial edema and/or pneumonitis. Cannot rule out underlying chronic interstitial lung disease. Superimposed mild left basilar atelectasis and/or pneumonia
- No further Lasix indicated at this time
#Acute on Chronic Anemia with Recent GI bleed on Xarelto August 2024 at [facility]
-Patient with GAVE syndrome s/p cautery with APC 02/2024, requiring 3 units pRBCs
-Patient reports at recent 08/2024 hospitalization he was also given blood products
-Hemoglobin today: >10, no indication for transition today
-Continue PPI, Vitamin B12
#Depression/anxiety
- Continue Sertraline, Wellbutrin
#Sleep apnea/CPAP
- Continue CPAP at night
#Paroxysmal A-fib
- Status post multiple cardioversions and cardiac ablation 11/02/2013, 10/02/2018
- Xarelto on hold due to GI bleed in August 2024. Recommend outpatient follow up in regards to potentially resuming anticoagulation
- Previously followed with [facility]ology and is due for consideration of Watchman device. Will recommend following again outpatient for Watchman device.
Full Code
DVT Prophylaxis: SCDs
Anticipated Discharge: Today
Subjective/Interval History
-
Date of Service: November 06, 2024
Patient was doing well today and was in good spirits. He continues to be free of shortness of breath while on 4L supplemental O2. He reports only coughing once this morning, and that his sore throat is much improved. He is asking about leaving
today, as he was disappointed he was not discharged yesterday.
Objective Data
-
Labs:
Laboratory Results
11/06/24
06:00
WBC Pending
Hgb Pending
Hct Pending
Plt Count Pending
Sodium Pending
Potassium Pending
Chloride Pending
Carbon Dioxide Pending
BUN Pending
Creatinine Pending
Glucose Pending
Calcium Pending
Vital Signs:
Vital Signs
Temp Pulse Resp BP Pulse Ox
97.4 F 64 20 139/73 98
11/06/24 03:47 11/06/24 03:47 11/06/24 03:47 11/06/24 03:47 11/06/24 03:47
I&O
11/05/24 11/06/24 11/07/24
06:59 06:59 06:59
Intake Total 1760 / 1760 1290 / 1290
Output Total 2800 / 2800 2170 / 2170
Balance -1040 / -1040 -880 / -880
Review of Systems
-
History Source: Patient
Constitutional: Denies Fever or Chills
Respiratory: Reports Cough; Denies Trouble Breathing
Cardiac: Denies Chest Pain or Palpitations
Abdomen/GI: Denies Abdominal Pain, Nausea, Vomiting, Diarrhea or Constipated
Neuro: Denies Dizzy, Headache or Weakness
Physical Exam
-
General: Well Developed, Well Nourished, No Apparent Distress and Comfortable
HEENT: Normocephalic and Atraumatic
Respiratory: Clear to Auscultation
Cardiac: Regular Rhythm and S1/S2
Skin: Warm and Dry
Neuro: Awake and Alert
Psych: Calm
--- NOTE | 2024-11-06 07:22 | W.DCSUMMARY ---
Addendum entered and electronically signed by Theodore Diallo MD 11/06/24 23:02:
Read, reviewed, and agree. See same day progress note for additional details.
Kalpesh Diallo MD
Original Note:
Documented by User: Marleny Encarnacion DO, Resident 11/06/24 15:13
Discharge Summary
Discharge Data
Date of Admission: 11/01/24
Date of Discharge: 11/06/24
-
Pending Results: No
Hospital Course
Discharging Physician : Theodore Diallo MD
Disposition : Good
Primary care physician : Lara Olsen
Principal Discharge diagnosis : Acute COPD Exacerbation
Chronic Discharge diagnosis : Chronic anemia, paroxysmal atrial fibrillation, CHF with recent exacerbation and obstructive sleep apnea
Hospital Course :
This is a 79 y/o male with pmhx of chronic anemia, COPD on 6L supplemental O2 on baseline, paroxysmal atrial fibrillation, CHF and obstructive sleep apnea who presented to the ED on 11/01/2024 with shortness of breath with minimal exertion. Recently
he had been hospitalized at [facility] for acute CHF exacerbation, at which time he had been discharged on 4L O2.
In the ED, he was found to have bilateral wheezing on examination. His O2 saturation was 95% on 6L. Hemoglobin was 10, BNP was 837, and troponin were 0.02. Chest X-ray showed mild diffuse interstitial prominence which may reflect pulmonary
interstitial edema or pneumonitis.
In the ED he was given duonebs, dexamethasone, 40mg IV Lasix. He was admitted to the hospital for further management.
Over the next few days, his breathing gradually improved with IV steroids, nebulizers and inhalers. He was started on Azithromycin 500mg for three days on 11/03/2024, with plans to switch to 250mg every other day afterwards. His oxygen requirement
decreased to 4L. On 11/06/2024 he was found to be clinically stable and ready for discharge to home. He was discharged on Azithromycin 250mg every other day, as well as a 9 prednisone taper. He was encouraged to follow up with his PCP in 1 week. He
was also encouraged to follow up with his telephone coin box collector given his recent CHF exacerbation, and pulmonology.
Important imaging findings : Chest X-ray showed mild diffuse interstitial prominence which may reflect pulmonary interstitial edema or pneumonitis.
Procedure findings : N/a
Discharge Plan
-
Patient Disposition: Home (Routine Discharge)
Discharge Diagnosis/Procedures: Acute on chronic hypoxemic respiratory failure due to COPD/ILD
Depression/anxiety
Sleep Apnea
Paroxysmal A-fib
Condition: Fair
Diet: Low Sodium and Diabetic, Carb Controlled
Activity: As tolerated
Driving Restrictions: As prior to admission
Bathing Restrictions: None
Specialty Instructions: Weigh Daily- Call MD for wt gain/loss 3 lbs overnight/5 lbs in 1 week
Referrals:
Stewart Schmidt MD [Active, Pulmonary Medicine] - in two to three weeks
Referral Note: May see DEWAYNE and major newton on second appointment
Lara Olsen CRNP [Family Provider, Family Practice] - in less than 1 week
Referral Note: Follow up with your PCP within 1 week
Additional Discharge Medication Instructions: We recommend follow up with your primary care provider, as well as your telephone coin box collector to discuss anticoagulation. You were previously taking this in August of this year. We also recommend follow up with
your telephone coin box collector to determine if you need a Watchman device which was previously discussed.
Prescriptions:
New
prednisone 10 mg tablet
10 mg PO DIRECTED Qty: 24 0RF
Rx Instructions:
Please take 5 tablets for 3 days
Then take 2 tablets for 3 days
Then take 1 tablet for 3 days
azithromycin 250 mg tablet
250 mg PO MOWEFR Qty: 20 0RF
Rx Instructions:
Take one tablet by mouth on Mondays, Wednesdays and Fridays.
Continued
Trelegy Ellipta 100-62.5-25 mcg Blister With Device
1 inh INHALATION R DAILY
sertraline 100 mg Tablet
100 mg PO DAILY
roflumilast [Daliresp] 250 mcg Tablet
250 mcg PO DAILY
pantoprazole [Protonix] 40 mg tablet,delayed release (DR/EC)
40 mg PO DAILY
benzonatate 200 mg Capsule
200 mg PO DAILY
cyanocobalamin (vitamin B-12) 1,000 mcg Tablet
1,000 mcg PO DAILY
bupropion HCl [Wellbutrin XL] 150 mg Tablet Extended Release 24 Hr
150 mg PO DAILY
albuterol sulfate 2.5 mg /3 mL (0.083 %) Solution For Nebulization
2.5 mg INHALATION R Q6HPRN PRN (Reason: Shortness of Breath) Qty: 0 0RF
Discontinued
ferrous sulfate 325 mg (65 mg iron) Tablet
325 mg PO QPM
guaifenesin [Mucinex] 1,200 mg Tablet Extended Release 12hr
1,200 mg PO DAILY
Discharge Orders:
Discharge Patient (As Directed); Ordered 11/06/24
Ordered By: Marleny Encarnacion
Discharge Date and Time
Discharge Date/Time: 11/06/24 14:43
Print Language: BARBADIAN

Documented by User: Theodore Diallo MD 11/06/24 22:59
Discharge Summary
Discharge Data
Date of Admission: 11/01/24
Date of Discharge: 11/06/24
Discharge Plan
-
Patient Disposition: Home (Routine Discharge)
Discharge Diagnosis/Procedures: Acute on chronic hypoxemic respiratory failure due to COPD/ILD
Depression/anxiety
Sleep Apnea
Paroxysmal A-fib
Condition: Fair
Diet: Low Sodium and Diabetic, Carb Controlled
Activity: As tolerated
Driving Restrictions: As prior to admission
Bathing Restrictions: None
Specialty Instructions: Weigh Daily- Call MD for wt gain/loss 3 lbs overnight/5 lbs in 1 week
Referrals:
Stewart Schmidt MD [Active, Pulmonary Medicine] - in two to three weeks
Referral Note: May see DEWAYNE and then me on second appointment
Lara Olsen CRNP [Family Provider, [facility]] - in less than 1 week
Referral Note: Follow up with your PCP within 1 week
Additional Discharge Medication Instructions: We recommend follow up with your primary care provider, as well as your telephone coin box collector to discuss anticoagulation. You were previously taking this in August of this year. We also recommend follow up with
your telephone coin box collector to determine if you need a Watchman device which was previously discussed.
Prescriptions:
New
prednisone 10 mg tablet
10 mg PO DIRECTED Qty: 24 0RF
Rx Instructions:
Please take 5 tablets for 3 days
Then take 2 tablets for 3 days
Then take 1 tablet for 3 days
azithromycin 250 mg tablet
250 mg PO MOWEFR Qty: 20 0RF
Rx Instructions:
Take one tablet by mouth on Mondays, Wednesdays and Fridays.
Continued
Trelegy Ellipta 100-62.5-25 mcg Blister With Device
1 inh INHALATION R DAILY
sertraline 100 mg Tablet
100 mg PO DAILY
roflumilast [Daliresp] 250 mcg Tablet
250 mcg PO DAILY
pantoprazole [Protonix] 40 mg tablet,delayed release (DR/EC)
40 mg PO DAILY
benzonatate 200 mg Capsule
200 mg PO DAILY
cyanocobalamin (vitamin B-12) 1,000 mcg Tablet
1,000 mcg PO DAILY
bupropion HCl [Wellbutrin XL] 150 mg Tablet Extended Release 24 Hr
150 mg PO DAILY
albuterol sulfate 2.5 mg /3 mL (0.083 %) Solution For Nebulization
2.5 mg INHALATION R Q6HPRN PRN (Reason: Shortness of Breath) Qty: 0 0RF
Discontinued
ferrous sulfate 325 mg (65 mg iron) Tablet
325 mg PO QPM
guaifenesin [Mucinex] 1,200 mg Tablet Extended Release 12hr
1,200 mg PO DAILY
Discharge Orders:
Discharge Patient (As Directed); Ordered 11/06/24
Ordered By: Marleny Encarnacion
Discharge Date and Time
Discharge Date/Time: 11/06/24 14:43
Print Language: BARBADIAN
[2024-11-06] MEDS: TESSALON PERLES 200 MG PO (07:35)
[2024-11-06] MEDS: ZITHROMAX 500 MG PO (07:35)
[2024-11-06] MEDS: VITAMIN B-12 1000 MCG PO (07:36)
[2024-11-06] MEDS: DALIRESP 250 MCG PO (07:36)
[2024-11-06] MEDS: ZOLOFT 100 MG PO (07:36)
[2024-11-06] MEDS: MUCINEX 1200 MG PO (07:37)
[2024-11-06] MEDS: PROTONIX 40 MG PO (07:37)
[2024-11-06] MEDS: WELLBUTRIN XL (24 hour extended release) 150 MG PO (07:43)
[2024-11-06 07:51] LABS: Glucose - Point of Care 139 mg/dl (70-99)
[2024-11-06] MEDS: PULMICORT 0.5 MG INH (07:56)
[2024-11-06] MEDS: DUONEB 3 ML INH ×2 (07:56→11:25)
[2024-11-06 09:05] LABS: Hematocrit 33.6 % (39.0-52.0); Hemoglobin 10.5 g/dL (13.0-18.0); Mean Corp Hgb Conc. 31.3 g/dL (33.0-37.0); Mean Corpuscular Volume 87.0 fL (80.0-94.0); Platelet Count 288 10^3/uL (130-400); Red Cell Dist. Width 16.1 % (11.5-14.5)
[2024-11-06] MEDS: NOVOLOG FLEXPEN-LOW RESISTANCE SC ×2 (09:51→12:40)
[2024-11-06 10:12] LABS: Blood Urea Nitrogen 31 mg/dl (9-20); Calcium 9.2 mg/dl (8.4-10.2); Carbon Dioxide 29 mmol/L (22-30); Chloride 100 mmol/L (98-107); Estimated Creatinine Clearance 63 ml/min; Glucose 130 mg/dl (70-99); Potassium 5.2 mmol/L (3.5-5.1); Sodium 137 mmol/L (135-145); eGFR > 60.00
[2024-11-06 11:19] VITALS: BP 129/72
--- NOTE | 2024-11-06 11:29 | W.PN.PUL3 ---
Addendum entered and electronically signed by Stewart Schmidt MD 11/06/24 14:21:
CDI inquiry: Tracheobronchitis was acute.
Original Note:
Today's Communication / Plan
-
Transition to prednisone 40 mg and decrease by 10 mg every 72 hours to off.
Nebulizer therapy Pulmicort/DuoNebs-should continue until seen in the office and improved
Hold inhalers until improved in the outpatient setting
Azithromycin 250 mg every other day for anti-inflammatory properties-should continue until symptoms improve or indefinitely depending on clinical situation in the outpatient setting.
Continue Daliresp
Continue oxygen supplementation-baseline 4 L at rest and 6 with ambulation. Patient has a portable oxygen concentrator.
Continue to monitor weight, if increasing rapidly may need diuretics-has heart failure with preserved ejection fraction
Monitor hemoglobin-currently stable-contributing to symptoms
Okay to discharge from my perspective
Discussed with patient and at the bedside.
They thinking about following locally and my information has been left in the chart.
Assessment
-
Patient is a 79-year-old gentleman with known history of severe COPD, baseline home oxygen dependent as well as diastolic congestive heart failure and moderate aortic stenosis who presented to the hospital with shortness of breath going on for about
a week. Reportedly about 5 days ago patient was treated at [facility] for CHF diagnosis. Patient reports having had significant diuresis with initial improvement but then his symptoms plateaued and have not improved any further. Patient
also reported wheezing at home which has not improved. 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 Patient is
established with the community exam proctor and follows up closely as outpatient. In view of shortness of breath, pulmonary consultation was requested for further input
#1. Acute COPD exacerbation, suspect related to URI-possibly tracheobronchitis.
-Chest x-ray without acute infiltrate./Procalcitonin negative
-Feels short of breath with activity-still having cough paroxysms 11/05/2024. Feels not ready to be discharged.
- Exertional shortness of breath is slowly improving. This is multifactorial.
- Reportedly baseline severe COPD, has been on Trelegy at home along with Daliresp
- Chronically home oxygen dependent, 4-6 L/min at baseline
- Continue DuoNebs/Pulmicort- Nebulizer-while in the hospital. May need to discharge on this regimen until he improves.
- Continue IV Solu-Medrol without change still symptomatic. Will continue to reevaluate daily for readiness to transition to prednisone.
-Transitioned azithromycin will continue with this medication at 250 mg every other day for anti-inflammatory properties until seen in our office.
- Micinex BID
#2. H/o CPFE, combined pulmonary fibrosis and emphysema
- Prior imaging suggestive of upper lobe emphysema and lower lobe fibrotic changes.
-No previous peripheral eosinophilia.
- Current presentation is more suggestive of COPD exacerbation rather than flare of IPF
- Patient states that he was being evaluated for endobronchial valve lung volume reduction-he would like to follow-up locally.
My information will be left in the chart to follow-up with him after discharge.
#3. History of obstructive sleep apnea
- BMI elevated 35.9, on nightly CPAP therapy
- Continue inpatient use
#4 obesity contributing to symptoms.
He may be candidate for GLP-1 agonist
Will need to complete pulmonary rehabilitation as well.
-
Other contributors to his shortness of breath includes: Anemia, obesity, deconditioning, heart failure with preserved ejection fraction.
proBNP this admission 837/negative troponin.
Patient not on diuretics-if there is no improvement of shortness of breath after clearing of infection may need to consider a trial of diuretics.
DVT prophylaxis, on SCDs with recent GI bleed
Other medical diagnoses:
- HFpEF, LVEF 65-70% with Stage III Diastolic dysfunction. Appears euvolemic, trace pedal edema.
- Moderate Aortic Stenosis
- Paroxysmal atrial fibrillation s/p ablation in 2013 and 2018
- Hypertension, hyperlipidemia
- Chronic right bundle branch block
- Atypical atrial flutter
- History of PFO
- History of smoking
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
Patient will continue to follow-up with primary exam proctor.

Data:
CXR 10/2024: Mild diffuse interstitial prominence may reflect pulmonary interstitial edema and/or pneumonitis. Cannot rule out underlying chronic interstitial lung disease.
Superimposed mild left basilar atelectasis and/or pneumonia.
ECHO 05/2023: Normal left ventricular chamber size.
Mild concentric left ventricular hypertrophy.
Hyperdynamic left ventricular systolic function.
Estimated ejection fraction is 65-70% by visual assessment.
Stage III diastolic dysfunction suggestive of restrictive filling pattern and
increased filling pressures.
Normal right ventricular size and function.
Moderate aortic stenosis.
Peak/mean gradients across the aortic valve are 45/26 mmHg.
Mild aortic regurgitation.
Trace tricuspid regurgitation.
Trivial pericardial effusion.
The IVC is of normal size and demonstrates normal respiratory variation.
NO significant change since 09/2021 echocardiogram
PET-CT 08/2023: Negative
Subjective Data
-
Date of Service:
Date of Service: November 06, 2024
Chief Complaint: Pulmonary Follow Up (Acute exacerbation of COPD)
Subjective:
Continues to have coughing
Shortness of breath somewhat improved
Supplemental oxygen at baseline
Review of Systems
General: Fever (n)
Cardiopulmonary: Dyspnea, Dyspnea on Exertion and Cough
GI: Abdominal Pain (n)
Objective Data
Data Reviewed
Vital Signs / I&O / Oxygen:
Vital Signs
Temp Pulse Resp BP Pulse Ox
97.9 F 74 17 129/72 99
11/06/24 11:19 11/06/24 11:28 11/06/24 11:28 11/06/24 11:19 11/06/24 11:28
Intake and Output
11/05/24 11/06/24 11/07/24
06:59 06:59 06:59
Intake Total 1760 / 1760 1290 / 1290
Output Total 2800 / 2800 2170 / 2170
Balance -1040 / -1040 -880 / -880
SaO2 99
Nasal Cannula flow liters per 4
minute
Physical Exam
General: Comfortable
HEENT: Normocephalic
Cardiovascular: S1-S2
Respiratory: Wheeze (Forced expiratory wheezing, better air movement still with prolonged expiratory phase) and Crackles ( bibasilar)
GI: Soft
Neurology: Awake, Alert, Oriented and No Motor Deficits
Skin: Warm
Labs/Micro/Reports
Lab Data
11/06/24 07:35
11/06/24 07:35
[2024-11-06 12:33] LABS: Glucose - Point of Care 134 mg/dl (70-99)
--- NOTE | 2024-11-06 13:06 | CM ---
Patient will d/c home today
Spouse will transport
[facility] will resume services
Elian
Plan: Home, BARI w/ Elian
== END 2024-11-06 14:43 | disposition home health service (06) | DRG 189 ==
LOC: 4 WEST ACU 20:48
PROVIDERS: Clinical Nurse Specialist Family Health; ADMITTING PHYSICIAN Hospitalist; ATTENDING PHYSICIAN Family Medicine; CONSULT PHYSICIAN Internal Medicine; EMERGENCY PHYSICIAN Student in an Organized Health Care Education/Training Program; FAMILY PHYSICIAN Nurse Practitioner Family
PROC: 5A09357 Assistance with Respiratory Ventilation, Less than 24 Consecutive Hours, Continuous Positive Airway Pressure (ICD-10-PCS; 2024-11-01)
DX: J96.21 Acute and chronic respiratory failure with hypoxia (principal); J44.1 Chronic obstructive pulmonary disease with (acute) exacerbation; I50.32 Chronic diastolic (congestive) heart failure; I42.9 Cardiomyopathy, unspecified; I48.4 Atypical atrial flutter; J98.11 Atelectasis; I48.0 Paroxysmal atrial fibrillation; G47.33 Obstructive sleep apnea (adult) (pediatric); J84.10 Pulmonary fibrosis, unspecified; F32.A Depression, unspecified; F41.9 Anxiety disorder, unspecified; I11.0 Hypertensive heart disease with heart failure; E87.5 Hyperkalemia; D50.9 Iron deficiency anemia, unspecified; Z96.653 Presence of artificial knee joint, bilateral; Z87.891 Personal history of nicotine dependence; Z79.899 Other long term (current) drug therapy; Z99.81 Dependence on supplemental oxygen; Z11.52 Encounter for screening for COVID-19; E78.5 Hyperlipidemia, unspecified; I45.10 Unspecified right bundle-branch block
CPT/HCPCS: 71045; 80048; 80053; 82962; 83036; 83880; 84145; 84484; 85025; 85027; 87502; 87811; 93005; 94640; 94660; 96374; 96375; 97162; 97165; 97535; 99291